=== PATIENT | male | born 1945 | race African-American/Black ===

== ENCOUNTER 2018-02-03 05:36 | Inpatient (IN) | payer MEDICARE, MEDICAID ==
[2018-02-03] MEDS ORDERED: Midazolam HCl 5 mg/5 ml Vial ONE (06:26)
[2018-02-03] MEDS ORDERED: Fentanyl 250 MCG/5 ML VIAL ONE ×2 (06:26→07:07)
[2018-02-03] MEDS ORDERED: Albumin 5% 500 ML ONE (06:28)
[2018-02-03] MEDS ORDERED: CEFAZOLIN/Water 2 GM/20 ML SYRINGE ONE (06:43)
[2018-02-03] MEDS ORDERED: Heparin 10,000 UNITS/1 ML VIAL 30,000 UNITS in Sodium Chloride 0.9% 1,000 ML FS SCH (06:45)
[2018-02-03 07:07] LABS: #Basophils 0.1 thou/uL (0.0-0.2); #Eosinphils 0.2 thou/uL (0.0-0.7); #Lymphocytes 2.3 thou/uL (1.20-3.40); #Monocytes 0.6 thou/uL (0.11-0.59); #Neutrophils 4.4 thou/uL (1.40-6.50); %Basophils 1.6 % (0.0-1.0); %Eosinophils 2.1 % (0.0-10.0); %Lymphocytes 29.7 % (21.0-51.0); %Neutrophils 58.6 % (42.0-75.0); Hemoglobin 14.6 g/dL (14.0-18.0); Mean Corpuscular HGB CONC 32.2 g/dL (32.0-36.0); Mean Corpuscular Hemoglobin 28.8 pg (27.0-31.0); Mean Corpuscular Volume 89.4 fl (80.0-94.0); Mean Platelet Volume 8.3 fL (7.4-10.4); Platelet Count 266 thou/uL (130-400); RBC Distribution Width 14.5 % (11.5-14.5); Red Blood Cell (RBC) Count 5.06 mill/uL (4.70-6.10); White Blood Cell (WBC) Count 7.6 thou/uL (4.8-10.8)
[2018-02-03] MEDS ORDERED: Midazolam HCl 2 mg/2 ml Vial ONE (07:07)
[2018-02-03] MEDS ORDERED: Phenylephrine HCL 10 MG/ML VIAL ONE (07:08)
[2018-02-03] MEDS ORDERED: Vecuronium 10 MG VIAL ONE ×2 (07:17→14:25)
[2018-02-03 07:26] LABS: PTT 25.7 SEC (22.9-36.1); Prothrombin Time 13.5 SEC (12.0-14.7)
[2018-02-03] MEDS ORDERED: Dexmedetomidine 200 MCG/2 ML VIAL ONE (07:28)
[2018-02-03 07:41] LABS: Chloride 105 mmol/L (98-107); Potassium 3.5 mmol/L (3.5-5.1); Sodium 138 mmol/L (136-145)
[2018-02-03 07:42] LABS: Calcium 9.6 mg/dL (7.8-10.44)
[2018-02-03 07:43] LABS: Glucose 81 mg/dL (83-110)
[2018-02-03 07:44] LABS: Anion Gap 20 mmol/L (10-20); Carbon Dioxide 17 mmol/L (23-31)
[2018-02-03 07:46] LABS: Calc. Creatinine Clearance 89 mL/min (70-130); Estimated GFR-MDRD 75
[2018-02-03 07:47] LABS: BUN (Urea Nitrogen) 16 mg/dL (8.4-25.7)
--- NOTE | 2018-02-03 07:57 | RAD ---
CHEST 2 VIEWS: HISTORY: Chest pain. COMPARISON: None. FINDINGS: Normal cardiac silhouette. Pulmonary vessels and hilum are normal. No mass. No consolidation. No pneumothorax or osseous abnormalities. IMPRESSION: No acute cardiopulmonary process. POS: [facility]
[2018-02-03] MEDS ORDERED: Hetastarch 6% 500 ML 500 ML IVPB PRN (11:30)
[2018-02-03] MEDS ORDERED: Ondansetron HCl/PF 4 MG/2 ML Vial IVP PRN (11:30)
[2018-02-03] MEDS ORDERED: Nitroglycerin 50 MG/250 ML BOT 250 ML IVPB PRN (11:30)
[2018-02-03] MEDS ORDERED: Guaifenesin DM 100-10/5 ML UDCUP PO PRN (11:30)
[2018-02-03] MEDS ORDERED: Post-Op Insulin Drip Protocol IVPB ONE (11:30)
[2018-02-03] MEDS ORDERED: HYDROcodone/Acetaminophen 5/325 mg Tablet PO PRN (11:30)
[2018-02-03] MEDS ORDERED: Magnesium 2 GM/NS 0.9% 100 ML 2 GM in Premix Bag 1 BAG IVPB SCH (11:30)
[2018-02-03] MEDS ORDERED: Fentanyl 100 MCG/2 ML VIAL SLOW IVP PRN ×2 (11:30)
[2018-02-03] MEDS ORDERED: Acetaminophen 325 MG TAB PO PRN (11:30)
[2018-02-03] MEDS ORDERED: Bisacodyl 5 MG TAB PO PRN (11:30)
[2018-02-03] MEDS ORDERED: hydrALAZINE 20 MG/ML VIAL SLOW IVP PRN (11:30)
[2018-02-03] MEDS ORDERED: Promethazine HCl 25 MG/ML VIAL IM PRN (11:30)
[2018-02-03] MEDS ORDERED: Bisacodyl 10 MG SUPP PR PRN (11:30)
[2018-02-03] MEDS ORDERED: Phenylephrine 10 MG/NS 250 ML 250 ML IVPB PRN (11:30)
[2018-02-03] MEDS ORDERED: Mag-Al 1200 mg/1200 mg/30 ML UDCUP PO PRN (11:30)
[2018-02-03] MEDS ORDERED: DOPamine 400 MG/D5W 250 ML 250 ML IVPB PRN (11:30)
[2018-02-03] MEDS ORDERED: Dextrose 50% Abboject 50 ML SYRINGE SLOW IVP PRN (11:50)
[2018-02-03] MEDS ORDERED: Dextrose 5% in Water 1,000 ML IV PRN (11:50)
[2018-02-03 11:59] LABS: Actual Bicarbonate (HCO3a) 23.9 mEq/L (22-26); Base Excess (BEa) -1.9 mEq/L (0 (+/-) 2.5); CO2 Tension 45.4 mmHg (35.0-45.0); Calcium, Ionized 1.2 mmol/L (1.12-1.30); O2 Tension (PaO2) 67.5 mmHg (80.0-100.0); Puncture Site LINE; pH, Arterial 7.33 (7.35-7.45)
[2018-02-03 12:03] VITALS: BMI 39.2
[2018-02-03] MEDS: Ketorolac Tromethamine 30 MG/ML VIAL IVP SCH ×3 (12:06→23:39)
[2018-02-03] MEDS: D5 1/2 NS w/20 mEq KCL 1,000 ML IV SCH (12:06)
[2018-02-03 12:08] LABS: #Basophils 0.1 thou/uL (0.0-0.2); #Eosinphils 0.1 thou/uL (0.0-0.7); #Lymphocytes 2.3 thou/uL (1.20-3.40); #Neutrophils 13.3 thou/uL (1.40-6.50); %Basophils 0.4 % (0.0-1.0); %Eosinophils 0.7 % (0.0-10.0); %Lymphocytes 13.7 % (21.0-51.0); %Monocytes 5.9 % (0.0-10.0); %Neutrophils 79.4 % (42.0-75.0); Hemoglobin 10.4 g/dL (14.0-18.0); Mean Corpuscular HGB CONC 32.1 g/dL (32.0-36.0); Mean Corpuscular Hemoglobin 28.9 pg (27.0-31.0); Mean Corpuscular Volume 90.1 fl (80.0-94.0); Platelet Count 168 thou/uL (130-400); RBC Distribution Width 14.2 % (11.5-14.5); Red Blood Cell (RBC) Count 3.61 mill/uL (4.70-6.10); White Blood Cell (WBC) Count 16.7 thou/uL (4.8-10.8)
[2018-02-03 12:12] LABS: INR-International Normal Ratio 1.3; PTT 32.7 SEC (22.9-36.1); Prothrombin Time 16.5 SEC (12.0-14.7)
[2018-02-03 12:23] LABS: Anion Gap 10 mmol/L (10-20); BUN (Urea Nitrogen) 13 mg/dL (8.4-25.7); Calc. Creatinine Clearance 116 mL/min (70-130); Calcium 8.4 mg/dL (7.8-10.44); Carbon Dioxide 24 mmol/L (23-31); Chloride 107 mmol/L (98-107); Estimated GFR-MDRD Greater than 90; Glucose 161 mg/dL (83-110); Potassium 3.4 mmol/L (3.5-5.1); Sodium 138 mmol/L (136-145)
[2018-02-03] MEDS: Potassium Chloride 20 MEQ/100 ML PREMIX BAG IVPB PRN ×2 (12:48→18:24)
--- NOTE | 2018-02-03 14:09 | RAD ---
PORTABLE CHEST 1 VIEW: DATE: 02/03/18. TIME: 11:58 a.m. HISTORY: Postop open heart surgery. FINDINGS: Comparison is made to the exam FINDINGS: Correlation is made with the exam of 02/03/18. Interval changes of median sternotomy are seen. There is an endotracheal tube with tip about a centi meter above the level of the jaylyn. A right subclavian central line is noted with tip in the projec tion of the cavoatrial junction. Heart size is normal. No lobar consolidation, pneumothoraces, or l arge effusions are seen. There is no evidence of antwon pulmonary edema. There is subsegmental atele ctatic change of the left lung base. POS: [facility]
--- NOTE | 2018-02-03 14:18 | OP ---
DATE OF PROCEDURE: 02/03/2018 PREOPERATIVE DIAGNOSES: Coronary artery disease/hyperlipidemia/hyperlipidemia/diabetes mellitus/obes ity. POSTOPERATIVE DIAGNOSES: Coronary artery disease/hyperlipidemia/hyperlipidemia/diabetes mellitus/obe sity. PROCEDURES PERFORMED: Coronary artery bypass grafting x3: 1. Left internal mammary artery 2.0 mm distal LAD - good conduit and target. 2. Reverse saphenous vein to 2.0 mm OM - good conduit and target. 3. Reversed saphenous vein to 2.0 mm PDA - conduit and target. SURGEONS: Mikey Fatima M.D., and James Palacios M.D. ANESTHESIA: General endotracheal - Rosalio Tarango D.O. and Cody Lopez CRNA. PUMP TIME: 59 minutes. CROSS-CLAMP TIME: 31 minutes. LOW CORE TEMP: 32-degree Celsius. DIRECTOR OF TEENAGE ACTIVITIES: Dieudonne Watkins. DRAINS: 24-[place] chest tubes x2. DRIPS: None. TRANSFUSIONS: None. DESCRIPTION OF PROCEDURE: After consent was obtained, the patient was brought to the operating room and placed in the supine position on the operating room table. Appropriate anesthetic monitor was pl aced and general endotracheal anesthesia induced. Chest, abdomen and legs were prepped and draped in usual sterile fashion. Greater saphenous vein was harvested from the left lower extremity utilizing an endoscopic technique. Wound was irrigated and closed in layers. Median sternotomy was performed . Left internal mammary artery was harvested as a pedicle graft. The patient was systemically hepar inized. Distal pedicle was divided and infused with papaverine. Thymic fat and pericardium were div ided with electrocautery. Pericardial stay sutures were placed. Aortic and atrial cannulation was p erformed. After adequate heparinization, retrograde prime was performed. The patient was placed on cardiopulmonary bypass. Distal targets were marked. Aortic cross-clamp was applied and antegrade sa nguinous cardioplegic arrest obtained. One liter of antegrade cold cardioplegia was given. Topical cold solution was used. Reversed saphenous vein was anastomosed to the PDA in end-to-side fashion wi th running 7-0 Prolene suture. Anastomosis was tested and was hemostatic. Reverse saphenous vein wa s anastomosed to the OM in end-to-side fashion with running 7-0 Prolene suture. Anastomosis was teste d and was hemostatic. Mammary artery was brought through a window in the pericardium and anastomosed to the LAD in end-to-side fashion with running 7-0 Prolene suture. On release of the Mammary clamps , good hooding in the anastomosis and good distal flow. Pedicle was secured with interrupted 6-0 Pro clarisa suture. Cross-clamp was removed and partial occluding clamp placed. Saphenous veins were anast omosed to individual punch sites on the aorta with running 6-0 Prolene suture. Partial occluding cla mp was removed and grafts deaired. Anastomoses were inspected for hemostasis, which was good. A sin gle stitch was placed in the toe of the mammary for hemostasis. After resumption of sinus rhythm, go od hemodynamics, and temperature greater than 36.5 bypass was discontinued. Transfusions were given. 24-[place] chest tubes were placed in the mediastinum. Decannulation was performed and pursestring sutures secured. Protamine was administered. After adequate hemostasis was obtained, vancomycin pas te was placed on the sternal edges. Sternum was closed with #7 wire. Sternum was treated with plate let-rich plasma and wires twisted. Wounds were irrigated, treated with platelet-poor plasma, and augusta sed in multiple layers. The patient was transferred to the intensive care unit in stable, but critic al condition. Needle, sponge, and needle counts were all reported as correct at the end of the proce dure.
[2018-02-03] MEDS ORDERED: Propofol 200 MG/20 ML VIAL ONE (14:25)
[2018-02-03] MEDS ORDERED: Thrombin 5000 UNITS/5 ML VIAL ONE (14:25)
[2018-02-03] MEDS ORDERED: Sodium Bicarb 50 MEQ/50 ML VIAL ONE (14:25)
[2018-02-03] MEDS ORDERED: Papaverine 60 MG/2 ML VIAL ONE (14:25)
[2018-02-03] MEDS ORDERED: Magnesium 5 GM/10 ML VIAL ONE (14:25)
[2018-02-03] MEDS ORDERED: Aminocaproic Acid 5 GM/20 ML VIAL ONE (14:25)
[2018-02-03] MEDS ORDERED: PHENYLEPHRINE-NS 100 MCG/ML 10 ML SYRINGE ONE (14:25)
[2018-02-03] MEDS ORDERED: Norepinephrine 4 MG/4 ML VIAL ONE (14:25)
[2018-02-03] MEDS ORDERED: Lidocaine 2% PF 100 mg/5 ml Syringe ONE (14:25)
[2018-02-03] MEDS ORDERED: Potassium Chloride 60 MEQ/30 ML VIAL ONE (14:25)
[2018-02-03] MEDS ORDERED: Cardioplegic Soln 1,000 ML BAG ONE (14:25)
[2018-02-03] MEDS ORDERED: Heparin 5,000 UNITS/ML VIAL ONE (14:25)
[2018-02-03] MEDS ORDERED: Nitroglycerin 50 MG/250 ML BOT ONE (14:25)
[2018-02-03] MEDS ORDERED: Calcium Chloride 1 GM/10 ML Abboject SYRINGE ONE (14:25)
[2018-02-03] MEDS ORDERED: Heparin 30,000 units/30 ml VIAL ONE (14:25)
[2018-02-03] MEDS ORDERED: Protamine Sulfate 250 MG/25 ML VIAL ONE (14:25)
[2018-02-03] MEDS: CEFAZOLIN/Water 2 GM/20 ML SYRINGE SLOW IVP SCH ×2 (15:04→23:40)
[2018-02-03 16:06] LABS: Actual Bicarbonate (HCO3a) 20.8 mEq/L (22-26); Base Excess (BEa) -7.2 mEq/L (0 (+/-) 2.5); CO2 Tension 52.7 mmHg (35.0-45.0); O2 Tension (PaO2) 58.1 mmHg (80.0-100.0); pH, Arterial 7.21 (7.35-7.45)
[2018-02-03 16:07] LABS: ALV-art Gradient 232.525 (0-20); Analyzer IN Cardio ER; Calcium, Ionized 1.1 mmol/L (1.12-1.30); Hematocrit-ABG 41.2 % (42.0-52.0); Hemoglobin (Hb) 12.4 g/dL (14.0-18.0); Puncture Site LINE
[2018-02-03 16:40] LABS: ALV-art Gradient 293.075 (0-20); Actual Bicarbonate (HCO3a) 19.4 mEq/L (22-26); Analyzer IN Cardio ER; Base Excess (BEa) -7.8 mEq/L (0 (+/-) 2.5); CO2 Tension 46.1 mmHg (35.0-45.0); Calcium, Ionized 1.1 mmol/L (1.12-1.30); Hematocrit-ABG 39.5 % (42.0-52.0); O2 Tension (PaO2) 77.1 mmHg (80.0-100.0); Puncture Site LINE; pH, Arterial 7.24 (7.35-7.45)
[2018-02-03] MEDS ORDERED: Sedation Protocol FS SCH (16:45)
[2018-02-03] MEDS ORDERED: Sodium Bicarb 50 MEQ/50 ML Abboject 8.4% SYRINGE IVP SCH (16:45)
[2018-02-03] MEDS ORDERED: DISCONTINUE PREVIOUS NARCOTIC PAIN MEDICATIONS AND BENZODIAZEPINES FS SCH (16:52)
[2018-02-03] MEDS ORDERED: Propofol 1,000 MG/100 ML VIAL IV PRN (16:52)
[2018-02-03] MEDS ORDERED: Fentanyl 20 MCG/ML 250 ML IVPB SCH (16:52)
[2018-02-03] MEDS ORDERED: Lorazepam 2 MG/ML VIAL SLOW IVP PRN (16:52)
[2018-02-03] MEDS ORDERED: fentaNYL Citrate/PF 2,000 MCG in Sodium Chloride 0.9% 60 ML IV SCH (17:00)
[2018-02-03 17:49] LABS: Hemoglobin 12.6 g/dL (14.0-18.0)
[2018-02-03 18:01] LABS: Potassium 3.2 mmol/L (3.5-5.1)
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
--- NOTE | 2018-02-03 18:40 | CON ---
DATE OF ADMISSION: 02/03/2018 DATE OF CONSULTATION: 02/03/2018 HISTORY OF PRESENT ILLNESS: Mr. Rey is a patient well known to me 72-year-old gentleman who came in for an elective bypass surgery. He has a history of hypertension, coronary artery disease, dysli pidemia, and diabetes. He underwent three-vessel bypass surgery today with a RANDOLPH to left anterior d escending artery, saphenous vein graft to the obtuse marginal branch of left circumflex and also the posterior descending of the right coronary artery. He apparently did very well. He is in the postop erative recovery area. At this time, blood pressure has been slightly decreased at times have been o n medications. His blood pressure now is 92/38 by arterial catheter is 89/45. PHYSICAL EXAMINATION: VITAL SIGNS: His heart rate is 79 and shows a sinus rhythm. He is afebrile, respiratory rate 24. H e remains on the ventilator. CHEST: Clear to auscultation anteriorly. CARDIOVASCULAR: Reveals a regular rate and rhythm. EXTREMITIES: Lower extremities are wrapped. He does not have any significant edema. His medications at this time include Tylenol, albumin, aspirin, cefazolin. He is on dopamine, Pepcid , fentanyl for sedation. He is on multiple p.r.n. medications, insulin on a sliding scale. At this time, we will continue to follow him very carefully. His pH has been somewhat on the low side. He h as been back on his IV medications as well as ventilator. We will continue to follow. At this time, I would agree with the medication as well as a management. We will continue following him on a rout ine basis until he was discharged from the hospital. Otherwise, he did quite well and we will see wh ether or not if he has developed any complications during the hospital stay.
[2018-02-03] MEDS: Famotidine/PF 20 mg/2ml Vial SLOW IVP SCH (21:04)
[2018-02-04 04:48] LABS: Band 16 % (5-11); Hemoglobin 11.7 g/dL (14.0-18.0); Lymphocytes 3 % (21-51); MDiff Complete? YES; Mean Corpuscular HGB CONC 31.6 g/dL (32.0-36.0); Mean Corpuscular Volume 88.6 fl (80.0-94.0); Mean Platelet Volume 8.1 fL (7.4-10.4); Monocytes 6 % (0-10); Neutrophil 75 % (42-75); PLT Morphology Comment Appears Adequate; Platelet Count 189 thou/uL (130-400); RBC Distribution Width 14.5 % (11.5-14.5); Red Blood Cell (RBC) Count 4.17 mill/uL (4.70-6.10); White Blood Cell (WBC) Count 18.4 thou/uL (4.8-10.8)
[2018-02-04 04:50] LABS: Anion Gap 11 mmol/L (10-20); BUN (Urea Nitrogen) 21 mg/dL (8.4-25.7); Calc. Creatinine Clearance 71 mL/min (70-130); Calcium 8.6 mg/dL (7.8-10.44); Carbon Dioxide 27 mmol/L (23-31); Chloride 108 mmol/L (98-107); Estimated GFR-MDRD 56; Glucose 118 mg/dL (83-110); Potassium 3.7 mmol/L (3.5-5.1); Sodium 142 mmol/L (136-145)
[2018-02-04] MEDS: Ketorolac Tromethamine 30 MG/ML VIAL IVP SCH ×4 (05:24→23:51)
[2018-02-04] MEDS: Potassium Chloride 20 MEQ/100 ML PREMIX BAG IVPB PRN (06:25)
[2018-02-04] MEDS: CEFAZOLIN/Water 2 GM/20 ML SYRINGE SLOW IVP SCH (06:32)
[2018-02-04 07:03] LABS: Actual Bicarbonate (HCO3a) 23.5 mEq/L (22-26); Base Excess (BEa) -2.1 mEq/L (0 (+/-) 2.5); CO2 Tension 43.3 mmHg (35.0-45.0); Calcium, Ionized 1.1 mmol/L (1.12-1.30); Hematocrit-ABG 37.1 % (42.0-52.0); Hemoglobin (Hb) 11.3 g/dL (14.0-18.0); Puncture Site RRA; pH, Arterial 7.35 (7.35-7.45)
[2018-02-04 07:04] LABS: ALV-art Gradient 156.075 (0-20)
--- NOTE | 2018-02-04 07:35 | RAD ---
CHEST 1 VIEW: HISTORY: Dyspnea. Followup. COMPARISON: 01/06/18. FINDINGS: Cardiac silhouette is magnified and enlarged. Pulmonary vasculature remains engorged with patchy salbador ateral perihilar and bibasilar infiltrates and left basilar atelectasis. Mediastinum is midline with postoperative changes. Endotracheal catheter tip is now at the level of the clavicular heads. Othe r lines and tubes are unchanged in position. satellite project site monitor leads overlie the chest. IMPRESSION: Improved position of endotracheal catheter. Otherwise, stable postoperative appearance of the chest. POS: [facility]
[2018-02-04] MEDS ORDERED: Insulin Detemir 100 UNITS/ML 16 UNITS in Pre-Filled Syringe 1 EACH SC SCH (08:15)
[2018-02-04] MEDS: Aspirin 325 MG TAB PO SCH (09:42)
[2018-02-04] MEDS: Famotidine/PF 20 mg/2ml Vial SLOW IVP SCH (09:42)
[2018-02-04] MEDS: Magnesium 2 GM/NS 0.9% 100 ML 2 GM in Premix Bag 1 BAG IVPB SCH (09:43)
--- NOTE | 2018-02-04 10:30 | PRG ---
DATE OF SERVICE: 02/04/2018 Mr. Rey did well. He was extubated this morning after he awakened overnight. PHYSICAL EXAMINATION: VITAL SIGNS: Blood pressure 132/61, heart rate 87, respiratory rate 18, temperature is 99.5. LUNGS: His lungs are clear. HEART: Regular rhythm. S1 and S2 are normal. ABDOMEN: Abdomen soft and nontender. EXTREMITIES: Without asymmetry. LABORATORY DATA: White count 18.4, hemoglobin 11.7, platelets 189. Sodium 142, potassium 3.7, chlor arun 108, bicarbonate 27, BUN 21, creatinine 1.49. PH this morning 7.35, CO2 43, pO2 75. Chest radiograph shows haziness in both lung bases. IMPRESSION: 1. Status post coronary bypass grafting. 2. Overnight intubation, most likely secondary to preexisting untreated sleep apnea. His was in the room when I rounded today and I discussed his care with her. She says that he snores. I susp ect he was sleep deprived from untreated sleep apnea which would account for why he was hypoventilati ng so long after surgery. He is clinically stable. Once he recovers from surgery, we need to see him and set him up for a sleep study. Critical care time was 30 minutes.
[2018-02-04] MEDS: D5 1/2 NS w/20 mEq KCL 1,000 ML IV SCH (11:00)
[2018-02-04] MEDS: HYDROcodone/Acetaminophen 5/325 mg Tablet PO PRN ×3 (11:02→21:30)
[2018-02-04] MEDS ORDERED: Metoprolol Tartrate 25 MG TAB PO SCH ×2 (13:15→13:30)
--- NOTE | 2018-02-04 13:15 | PDOC.CTH ---
<Fernanda Blas - Last Filed: 02/04/18 13:13> Cardiology Progress Note - Subjective The pt seen and examined. No overnight events. No cardiac complaints. He was extubated this AM and has not gotten out of his bed yet this moment. Family at bedside. - Objective Vital Signs Temp Pulse Resp BP Pulse Ox 02/04/18 08:00 98.4 F 90 18 99 02/04/18 07:20 115 H 22 H 98 02/04/18 06:25 76 02/04/18 06:00 22 H 02/04/18 04:00 20 02/04/18 02:19 86 97/54 L 02/04/18 02:00 15 Admit Weight 250 lb 10.649 oz Weight 251 lb 12.286 oz 02/03/18 02/04/18 02/05/18 06:59 06:59 06:59 Intake Total 1398.7 Output Total 1395 275 Balance 3.7 -275 - Physical Examination General/Neuro: alert & oriented x3 Neck: no JVD present Lungs: CTA (diminished at bases; on 2LNC) Heart: RRR Abdomen: soft Extremities: other: (FRANK wrap to LLE and SALEEM to RLE) - Telemetry Telemetry Rhythm: SR 90s - Labs Result Diagrams: 02/04/18 04:30 02/04/18 04:30 - Assessment/Plan 1. 3V CAD with s/p CABG x 3 with RANDOLPH-LAD, saph-OM, and saph-RCA on 02/03/18 - stable; on ASA; Start Metoprolol 12.5mg BID and Pravastatin 40mg daily; cont. monitor on tele 2. HTN - stable 3. Hyperlipidemia - start statin from tonight 4. DM type 2 - stable 5. Obese - Weight management education given to the pt and family MAR reviewed Review of Systems - Review of Systems Constitutional: reports: no symptoms reported EENTM: reports: no symptoms reported Respiratory: reports: no symptoms reported Cardiac (ROS): reports: no symptoms reported ABD/GI: reports: no symptoms reported : reports: no symptoms reported <Sherlyn Kincaid - Last Filed: 02/04/18 21:05> Cardiology Progress Note - Objective Vital Signs Temp Pulse Resp Pulse Ox 02/04/18 19:00 98.5 F 02/04/18 18:45 93 10 L 98 Admit Weight 250 lb 10.649 oz Weight 251 lb 12.286 oz 02/03/18 02/04/18 02/05/18 06:59 06:59 06:59 Intake Total 1398.7 1132.9 Output Total 1395 910 Balance 3.7 222.9 - Labs Result Diagrams: 02/04/18 04:30 02/04/18 04:30 - Assessment/Plan Pt. seen and eval. by me. He is feeling better and appears to be overall more stable than yesterday. Chest is clear anteriorly. RRR. Minimal edema. I agree with the A/P by the REFRIGERATION PERSON.
[2018-02-04] MEDS: Silver Sulfadiazine 1% Cream 50 GM TUBE TP SCH (17:20)
--- NOTE | 2018-02-04 17:39 | EKG ---
Test Reason : POST CABG Blood Pressure : / mmHG Vent. Rate : 074 BPM Atrial Rate : 074 BPM P-R Int : 166 ms QRS Dur : 092 ms QT Int : 392 ms P-R-T Axes : 054 -30 032 degrees QTc Int : 435 ms Sinus rhythm with occasional Premature ventricular complexes Left axis deviation Nonspecific T wave abnormality Abnormal ECG When compared with ECG of 24-JUN-2016 13:54, Premature ventricular complexes are now Present Nonspecific T wave abnormality no longer evident in Inferior leads Confirmed by DR. Braydon ALLEN ([id number]) on 02/04/2018 5:39:11 PM Referred By: Derek MCDONALD Confirmed By:DR. Braydon ALLEN
--- NOTE | 2018-02-04 17:42 | EKG ---
Test Reason : POST CABG Blood Pressure : / mmHG Vent. Rate : 069 BPM Atrial Rate : 069 BPM P-R Int : 172 ms QRS Dur : 094 ms QT Int : 452 ms P-R-T Axes : 047 -43 069 degrees QTc Int : 484 ms Normal sinus rhythm Left axis deviation Prolonged QT Abnormal ECG When compared with ECG of 03-FEB-2018 06:51, (Unconfirmed) Premature ventricular complexes are no longer Present Confirmed by DR. Braydon ALLEN ([id number]) on 02/04/2018 5:42:25 PM Referred By: Derek MCDONALD Confirmed By:DR. Bradyon ALLEN
[2018-02-04] MEDS: Insulin Regular 300 UNITS/3 ML VIAL SC PRN ×2 (17:52→21:36)
[2018-02-04] MEDS: Famotidine 20 MG TAB PO SCH (21:29)
[2018-02-04] MEDS: Atorvastatin Calcium 10 MG TAB PO SCH (21:29)
[2018-02-04] MEDS: Metoprolol Tartrate 25 MG TAB PO SCH (21:29)
[2018-02-05] MEDS: HYDROcodone/Acetaminophen 5/325 mg Tablet PO PRN ×3 (01:15→09:50)
[2018-02-05] MEDS: Ketorolac Tromethamine 30 MG/ML VIAL IVP SCH ×3 (05:07→17:43)
[2018-02-05 05:36] LABS: #Eosinphils 0.1 thou/uL (0.0-0.7); #Monocytes 1.8 thou/uL (0.11-0.59); #Neutrophils 10.3 thou/uL (1.40-6.50); %Basophils 0.3 % (0.0-1.0); %Eosinophils 0.4 % (0.0-10.0); %Lymphocytes 14.2 % (21.0-51.0); %Monocytes 12.5 % (0.0-10.0); %Neutrophils 72.7 % (42.0-75.0); Hemoglobin 10.5 g/dL (14.0-18.0); Mean Corpuscular HGB CONC 31.4 g/dL (32.0-36.0); Mean Corpuscular Hemoglobin 28.1 pg (27.0-31.0); Mean Corpuscular Volume 89.4 fl (80.0-94.0); Platelet Count 196 thou/uL (130-400); RBC Distribution Width 14.7 % (11.5-14.5); Red Blood Cell (RBC) Count 3.74 mill/uL (4.70-6.10); White Blood Cell (WBC) Count 14.1 thou/uL (4.8-10.8)
[2018-02-05 05:39] LABS: Anion Gap 11 mmol/L (10-20); BUN (Urea Nitrogen) 21 mg/dL (8.4-25.7); Calc. Creatinine Clearance 78 mL/min (70-130); Calcium 8.4 mg/dL (7.8-10.44); Carbon Dioxide 27 mmol/L (23-31); Chloride 107 mmol/L (98-107); Estimated GFR-MDRD 62; Glucose 187 mg/dL (83-110); Potassium 3.8 mmol/L (3.5-5.1); Sodium 141 mmol/L (136-145)
[2018-02-05] MEDS: Insulin Regular 300 UNITS/3 ML VIAL SC PRN ×3 (06:23→12:34)
[2018-02-05] MEDS: Potassium Chloride 20 MEQ/100 ML PREMIX BAG IVPB PRN (06:25)
--- NOTE | 2018-02-05 09:37 | RAD ---
CHEST ONE VIEW: HISTORY: Status post open heart surgery. COMPARISON: 02/04/2018 FINDINGS: Interval removal of endotracheal and nasogastric tubes. Drainage catheters, central venous catheter, and sternotomy wires are re-demonstrated. Stable configuration of the cardiac silhouette. Stable a eration of the lung parenchyma. No pneumothorax. IMPRESSION: Findings compatible with recent open heart surgery. POS: [facility]
[2018-02-05] MEDS: Magnesium 2 GM/NS 0.9% 100 ML 2 GM in Premix Bag 1 BAG IVPB SCH (09:43)
[2018-02-05] MEDS: Aspirin 325 MG TAB PO SCH (09:44)
[2018-02-05] MEDS: Potassium Chloride 20 MEQ TAB PO SCH (09:44)
[2018-02-05] MEDS: Tamsulosin HCl 0.4 MG CAP PO SCH (09:44)
[2018-02-05] MEDS: Furosemide 40 MG TAB PO SCH ×2 (09:44→17:43)
[2018-02-05] MEDS: Metoprolol Tartrate 25 MG TAB PO SCH ×2 (09:44→21:31)
[2018-02-05] MEDS: Famotidine 20 MG TAB PO SCH ×2 (09:44→21:29)
[2018-02-05] MEDS: Silver Sulfadiazine 1% Cream 50 GM TUBE TP SCH (09:53)
[2018-02-05] MEDS ORDERED: Nitroglycerin 0.4 MG TAB (25 Tab Bottle) SL PRN (12:05)
[2018-02-05] MEDS ORDERED: Guaifenesin DM 100-10/5 ML UDCUP PO PRN (12:05)
[2018-02-05] MEDS ORDERED: Bisacodyl 10 MG SUPP PR PRN (12:05)
[2018-02-05] MEDS ORDERED: Artificial Tears 18 DROP/0.9 ML EA EYE PRN (12:05)
[2018-02-05] MEDS ORDERED: Bisacodyl 5 MG TAB PO PRN (12:05)
[2018-02-05] MEDS ORDERED: Zolpidem Tartrate 5 MG TAB PO PRN (12:05)
[2018-02-05] MEDS ORDERED: diphenhydrAMINE 25 MG CAP PO PRN (12:05)
[2018-02-05] MEDS ORDERED: Mag-Al 1200 mg/1200 mg/30 ML UDCUP PO PRN (12:05)
[2018-02-05] MEDS ORDERED: Mineral Oil ENEMA PR PRN (12:05)
[2018-02-05] MEDS ORDERED: Dextrose 5% in Water 1,000 ML IV PRN (12:12)
[2018-02-05] MEDS ORDERED: Dextrose 50% Abboject 50 ML SYRINGE SLOW IVP PRN (12:12)
--- NOTE | 2018-02-05 14:17 | PDOC.CTH ---
<Fernanda Blas - Last Filed: 02/05/18 14:18> Cardiology Progress Note - Subjective The Pt seen and examined. No overnight events. No cardiac complaints. He is exercising with PT at this moment. - Objective Vital Signs Temp Pulse Pulse Pulse Resp BP BP 02/05/18 12:00 98.4 F 02/05/18 08:37 105 H 109 H 147/66 H 163/75 H 02/05/18 08:00 98.3 F 85 20 02/05/18 07:18 02/05/18 07:15 99 20 02/05/18 04:00 98.8 F Pulse Ox Pulse Ox Pulse Ox 02/05/18 12:00 02/05/18 08:37 96 93 L 02/05/18 08:00 02/05/18 07:18 93 L 02/05/18 07:15 93 L 02/05/18 04:00 Admit Weight 250 lb 10.649 oz Weight 249 lb 12.54 oz 02/04/18 02/05/18 02/06/18 06:59 06:59 06:59 Intake Total 1398.7 1492.9 400 Output Total 1395 1555 800 Balance 3.7 -62.1 -400 - Physical Examination General/Neuro: alert & oriented x3 Neck: no JVD present Lungs: other: (diminished at bases) Heart: RRR Abdomen: soft Extremities: other: (No edema) - Telemetry Telemetry Rhythm: SR - Labs Result Diagrams: 02/05/18 05:21 02/05/18 05:21 - Assessment/Plan 1. 3V CAD with s/p CABG x 3 with RANDOLPH-LAD, saph-OM, and saph-RCA on 02/03/18 - stable; on ASA; on Metoprolol 12.5mg BID and Pravastatin 40mg daily; Lisinopril 10mg daily started from today; cont. monitor on tele 2. HTN - Lisinopril 10mg daily from today; 3. Hyperlipidemia - on statin 4. DM type 2 - stable 5. Obese - Weight management education given to the pt and family MAR reviewed Review of Systems - Review of Systems Constitutional: reports: no symptoms reported EENTM: reports: no symptoms reported Respiratory: reports: no symptoms reported Cardiac (ROS): reports: no symptoms reported ABD/GI: reports: no symptoms reported : reports: no symptoms reported Musculoskeletal: reports: no symptoms reported Skin: reports: no symptoms reported <Sherlyn Kincaid - Last Filed: 02/05/18 22:13> Cardiology Progress Note - Objective Vital Signs Temp Pulse Pulse Pulse Resp BP BP 02/05/18 19:40 02/05/18 19:35 100 18 02/05/18 17:40 98.8 F 97 20 02/05/18 13:21 99 91 138/66 137/69 02/05/18 12:00 98.4 F BP Pulse Ox Pulse Ox Pulse Ox 02/05/18 19:40 93 L 02/05/18 19:35 93 L 02/05/18 17:40 166/74 H 98 02/05/18 13:21 100 98 02/05/18 12:00 Admit Weight 250 lb 10.649 oz Weight 249 lb 12.54 oz 02/04/18 02/05/18 02/06/18 06:59 06:59 06:59 Intake Total 1398.7 1492.9 400 Output Total 1395 1555 800 Balance 3.7 -62.1 -400 - Labs Result Diagrams: 02/05/18 05:21 02/05/18 05:21 - Assessment/Plan Pt. seen and eval. by me.I agree with the A/P by the POKER ROOM MANAGER. He denies any new complaints. He is still somewhat SOB. Exam: few basilar wheezes noted. RRR
--- NOTE | 2018-02-05 16:44 | PRG ---
DATE OF SERVICE: 02/05/2018 SUBJECTIVE: Mr. Rey says he is still feeling a little rough, but mainly he just says he aches al l over. He did not have any specific complaints. He denied shortness of breath. OBJECTIVE: VITAL SIGNS: Blood pressure 130/66, heart rate 79, respiratory rates 18-20 and his oximetry is 91% o n 2 liters a minute. LUNGS: Clear. HEART: Regular rhythm. S1 and S2 are normal. ABDOMEN: Soft. EXTREMITIES: With asymmetry. IMAGING DATA: Chest radiograph is hazy at the left base, as expected after surgery. LABORATORY DATA: White count is 14.1, hemoglobin 10.5 and platelets 196,000. Sodium 141, potassium 3.8, chloride 107, bicarb 27, BUN 21, creatinine 1.36 and glucose 187. IMPRESSION AND PLAN: 1. Status post coronary bypass grafting, clinically doing well. 2. Probable untreated preexisting sleep apnea. We will need to see him as an outpatient when he rec overs from this and scheduling for a sleep study.
[2018-02-05] MEDS: Atorvastatin Calcium 10 MG TAB PO SCH (21:29)
[2018-02-05] MEDS: HYDROcodone/Acetaminophen 10/325 mg Tablet PO PRN (21:31)
[2018-02-06] MEDS: Ketorolac Tromethamine 30 MG/ML VIAL IVP SCH ×3 (00:01→11:55)
[2018-02-06] MEDS: Furosemide 40 MG TAB PO SCH ×2 (09:49→14:13)
[2018-02-06] MEDS: Famotidine 20 MG TAB PO SCH ×2 (09:49→20:35)
[2018-02-06] MEDS: Aspirin 325 mg Enteric Coated Tablet PO SCH (09:49)
[2018-02-06] MEDS: Potassium Chloride 20 MEQ TAB PO SCH (09:49)
[2018-02-06] MEDS: Metoprolol Tartrate 25 MG TAB PO SCH (09:49)
[2018-02-06] MEDS: Tamsulosin HCl 0.4 MG CAP PO SCH (09:49)
[2018-02-06] MEDS: Lisinopril 5 MG TAB PO SCH (09:49)
[2018-02-06] MEDS: Silver Sulfadiazine 1% Cream 50 GM TUBE TP SCH (09:51)
[2018-02-06] MEDS ORDERED: Metoprolol Tartrate 25 MG TAB PO SCH (13:05)
[2018-02-06] MEDS ORDERED: Metoprolol Tartrate 50 MG TAB PO SCH (13:15)
--- NOTE | 2018-02-06 14:55 | PRG ---
DATE OF SERVICE: 02/06/2018 SUBJECTIVE: Mr. Rey is doing well. He is on room air. PHYSICAL EXAMINATION: VITAL SIGNS: His oximetry is 92%. He has eaten breakfast when I evaluated this morning, his heart r ate is 68. He is afebrile, blood pressure 156/74. LUNGS: Clear. HEART: Regular rhythm. ABDOMEN: Soft. LABORATORY DATA: No new lab today other than blood glucoses which have been less than 200 for the day. IMPRESSION: 1. Status post coronary bypass grafting. 2. Obesity, probable sleep apnea. PLAN: Sleep study as an outpatient. Continue cardiac rehabilitation.
[2018-02-06] MEDS: HYDROcodone/Acetaminophen 10/325 mg Tablet PO PRN ×2 (16:50→20:35)
[2018-02-06] MEDS: Insulin Regular 300 UNITS/3 ML VIAL SC PRN (16:51)
[2018-02-06] MEDS: Metoprolol Tartrate 50 MG TAB PO SCH (20:35)
[2018-02-06] MEDS: Atorvastatin Calcium 10 MG TAB PO SCH (20:35)
[2018-02-07 05:54] LABS: Anion Gap 14 mmol/L (10-20); BUN (Urea Nitrogen) 17 mg/dL (8.4-25.7); Calc. Creatinine Clearance 91 mL/min (70-130); Calcium 8.9 mg/dL (7.8-10.44); Carbon Dioxide 27 mmol/L (23-31); Chloride 106 mmol/L (98-107); Estimated GFR-MDRD 80; Glucose 146 mg/dL (83-110); Potassium 4.4 mmol/L (3.5-5.1); Sodium 143 mmol/L (136-145)
[2018-02-07] MEDS: Aspirin 325 mg Enteric Coated Tablet PO SCH (09:44)
[2018-02-07] MEDS: Metoprolol Tartrate 50 MG TAB PO SCH ×2 (09:44→21:52)
[2018-02-07] MEDS: Lisinopril 5 MG TAB PO SCH (09:44)
[2018-02-07] MEDS: Tamsulosin HCl 0.4 MG CAP PO SCH (09:44)
[2018-02-07] MEDS: Furosemide 40 MG TAB PO SCH ×2 (09:45→13:17)
[2018-02-07] MEDS: Potassium Chloride 20 MEQ TAB PO SCH (09:45)
[2018-02-07] MEDS: Famotidine 20 MG TAB PO SCH ×2 (09:45→21:52)
[2018-02-07] MEDS: HYDROcodone/Acetaminophen 10/325 mg Tablet PO PRN ×4 (09:49→21:52)
[2018-02-07] MEDS: Insulin Regular 300 UNITS/3 ML VIAL SC PRN ×4 (09:50→21:54)
[2018-02-07] MEDS: Silver Sulfadiazine 1% Cream 50 GM TUBE TP SCH (09:50)
[2018-02-07] MEDS ORDERED: Amlodipine 10 MG TAB PO SCH ×2 (10:15→11:30)
--- NOTE | 2018-02-07 17:25 | PRG ---
DATE OF SERVICE: 02/07/2018 SUBJECTIVE: Mr. Harsha Rey was evaluated this morning. He had eaten about 20% of his breakfast. He said he was full. He had no complaints. OBJECTIVE: VITAL SIGNS: He is afebrile. Heart rate is in the 70s, respiratory rate is 18, oximetry is 90% on 2 liters and blood pressure 141/70. LUNGS: Clear. HEART: Regular rhythm. ABDOMEN: Soft. IMPRESSION: Status post coronary bypass grafting, clinically stable. PLAN: Continue current cardiac rehabilitation. He will likely need inpatient hospitalization after surgery in a skilled unit.
[2018-02-07] MEDS: Atorvastatin Calcium 10 MG TAB PO SCH (21:52)
[2018-02-08] MEDS: Insulin Regular 300 UNITS/3 ML VIAL SC PRN ×3 (02:04→21:05)
[2018-02-08] MEDS: Amlodipine 10 MG TAB PO SCH (08:33)
[2018-02-08] MEDS: Famotidine 20 MG TAB PO SCH ×2 (08:33→21:02)
[2018-02-08] MEDS: Furosemide 40 MG TAB PO SCH ×2 (08:33→15:04)
[2018-02-08] MEDS: Tamsulosin HCl 0.4 MG CAP PO SCH (08:34)
[2018-02-08] MEDS: Metoprolol Tartrate 50 MG TAB PO SCH ×2 (08:34→21:02)
[2018-02-08] MEDS: Losartan 25 MG TAB PO SCH (08:34)
[2018-02-08] MEDS: Silver Sulfadiazine 1% Cream 50 GM TUBE TP SCH (08:34)
[2018-02-08] MEDS: Potassium Chloride 20 MEQ TAB PO SCH (08:34)
[2018-02-08] MEDS: Aspirin 325 mg Enteric Coated Tablet PO SCH (08:34)
[2018-02-08] MEDS: HYDROcodone/Acetaminophen 10/325 mg Tablet PO PRN ×3 (11:14→21:02)
--- NOTE | 2018-02-08 12:11 | PRG ---
DATE OF SERVICE: 02/08/2018 Roberto Rey remains stable. PHYSICAL EXAMINATION: VITAL SIGNS: He is afebrile, heart rate is 97, blood pressure 166/80, his room air sats are 92. LUNGS: Clear. HEART: Regular rhythm. ABDOMEN: Soft. He was observed sleeping. He does have some mild obstructive sleep apnea. IMPRESSION: Status post coronary bypass grafting. PLAN: Sleep study as an outpatient. Continue with cardiac rehab.
--- NOTE | 2018-02-08 15:57 | DIS ---
DATE OF ADMISSION: 02/03/2018 DATE OF DISCHARGE: 02/08/2018 PRINCIPAL DIAGNOSIS: Coronary artery disease. SECONDARY DIAGNOSES: Hypertension and diabetes mellitus. PROCEDURES PERFORMED: Coronary artery bypass grafting x3 with left internal mammary artery to the LA D and reverse saphenous vein graft from the aorta to the obtuse marginal and the PDA. HISTORY OF PRESENT ILLNESS AND HOSPITAL COURSE: The patient is a 72-year-old man with hypertension a nd peripheral vascular disease, who claudicates. He was found to have 3-vessel coronary disease with preserved LV function. He was referred for coronary artery bypass grafting. His postoperative cour se was primarily notable for his lack of cooperation with mobilization. He was extubated the morning of surgery, diuresis was initiated, and beta blockade initiated. His home medications were graduall y added back. As his mobilization approached adequacy, he was discharged home on postop day #5. He will be sent home with a prescription for Vicodin as needed for pain. He is to resume his home dose of Norvasc and losartan and his Lopressor has been increased to 50 mg b.i.d. We will plan on seeing him in the office in about 10 days' time.
--- NOTE | 2018-02-08 18:10 | PDOC.CTH ---
Cardiology Progress Note - Subjective No new issues or complaints. He has been walking around with PT. He had a BM yesterday. - Objective Vital Signs Temp Pulse Pulse Pulse Resp BP BP 02/08/18 13:14 92 90 127/66 02/08/18 11:33 99 F 88 22 H 02/08/18 10:20 88 85 121/72 02/08/18 08:33 97 166/80 H 02/08/18 07:20 98.4 F 97 18 02/08/18 07:15 98.4 F 97 18 02/08/18 06:55 87 16 BP BP Pulse Ox Pulse Ox Pulse Ox 02/08/18 13:14 138/68 96 90 L 02/08/18 11:33 129/71 94 L 02/08/18 10:20 140/78 97 92 L 02/08/18 08:33 02/08/18 07:20 92 L 02/08/18 07:15 166/80 H 92 L 02/08/18 06:55 94 L Admit Weight 250 lb 10.649 oz Weight 231 lb 02/07/18 02/08/18 02/09/18 06:59 06:59 06:59 Intake Total 620 Output Total Balance 620 - Physical Examination General/Neuro: alert & oriented x3, NAD Neck: no JVD present Lungs: unlabored respirations Heart: RRR Abdomen: NT/ND Extremities: + edema B (1+) - Telemetry Telemetry Rhythm: NSR - Labs Result Diagrams: 02/05/18 05:21 02/07/18 04:42 - Assessment/Plan 1. 3V CAD with s/p CABG x 3 with RANDOLPH-LAD, saph-OM, and saph-RCA on 02/03/18 2. HTN 3. Hyperlipidemia 4. DM type 2 5. Obese PLAN: - Continue to increase PT as tolerated. - Continue BB/ARB/Aspirin/Statin - May discharge home at any time from cardiac perspective.
[2018-02-08] MEDS: Atorvastatin Calcium 10 MG TAB PO SCH (21:02)
[2018-02-09] MEDS: HYDROcodone/Acetaminophen 10/325 mg Tablet PO PRN ×2 (03:17→09:52)
[2018-02-09] MEDS: Potassium Chloride 20 MEQ TAB PO SCH (08:27)
[2018-02-09] MEDS: Aspirin 325 mg Enteric Coated Tablet PO SCH (09:44)
[2018-02-09] MEDS: Famotidine 20 MG TAB PO SCH (09:45)
[2018-02-09] MEDS: Metoprolol Tartrate 50 MG TAB PO SCH (09:45)
[2018-02-09] MEDS: Amlodipine 10 MG TAB PO SCH (09:45)
[2018-02-09] MEDS: Tamsulosin HCl 0.4 MG CAP PO SCH (09:45)
[2018-02-09] MEDS: Furosemide 40 MG TAB PO SCH (09:46)
[2018-02-09] MEDS: Losartan 25 MG TAB PO SCH (09:47)
[2018-02-09] MEDS: Silver Sulfadiazine 1% Cream 50 GM TUBE TP SCH (09:50)
--- NOTE | 2018-02-09 10:24 | PRG ---
DATE OF SERVICE: 02/09/2018 This morning he is awake, alert, responsive. PHYSICAL EXAMINATION: VITAL SIGNS: Sats are 100% on room air, respiration 20, temperature 97, blood pressure 130/97. CHEST: Chest reveals decreased breath sounds, no wheezing. CARDIAC: Normal S1, S2. No gallops. ABDOMEN: Soft, no masses. IMPRESSION: 1. Status post coronary artery bypass graft. 2. Sleep apnea. 3. Severe deconditioning. PLAN: He is apparently going to home for recuperation, PT. He needs an outpatient study. Please fo llowup with Linda in the next several weeks.
[2018-02-09 11:45] VITALS: BP 128/64; TEMP 97.6
== END 2018-02-09 11:55 | DRG 236 ==
LOC: SURG A 05:36 → CCU 08:03 → EDSTATUS 09:18 → 2NO 02-05 14:05
PROVIDERS: ADMIT Thoracic Surgery (Cardiothoracic Vascular Surgery); ATTEND Thoracic Surgery (Cardiothoracic Vascular Surgery)
PROC: 02100Z9 Bypass Coronary Artery, One Artery from Left Internal Mammary, Open Approach (ICD-10-PCS; principal; 2018-02-03)
PROC: 021109W Bypass Coronary Artery, Two Arteries from Aorta with Autologous Venous Tissue, Open Approach (ICD-10-PCS; 2018-02-03)
PROC: 06BQ4ZZ Excision of Left Saphenous Vein, Percutaneous Endoscopic Approach (ICD-10-PCS; 2018-02-03)
PROC: 5A1221Z Performance of Cardiac Output, Continuous (ICD-10-PCS; 2018-02-03)
DX: I25.10 Atherosclerotic heart disease of native coronary artery without angina pectoris (principal); E87.2 Acidosis; E11.42 Type 2 diabetes mellitus with diabetic polyneuropathy; E11.51 Type 2 diabetes mellitus with diabetic peripheral angiopathy without gangrene; E78.5 Hyperlipidemia, unspecified; E66.9 Obesity, unspecified; I10 Essential (primary) hypertension; F17.210 Nicotine dependence, cigarettes, uncomplicated; Z68.36 Body mass index [BMI] 36.0-36.9, adult; G47.33 Obstructive sleep apnea (adult) (pediatric); Z79.4 Long term (current) use of insulin; Z79.899 Other long term (current) drug therapy; Z96.651 Presence of right artificial knee joint
CPT/HCPCS: 36415; 36416; 36430; 71045; 71046; 80048; 82805; 85025; 85610; 85730; 86850; 86900; 86901; 88184; 88305; 88307; 93005; 93010; 93798; 94002; 94003; 94150; 94640; J0282; J0360; J1642; J1644; J1815; J1885; J2001; J2250; J2270; J2370; J2440; J2704; J2720; J2920; J3010; J3370; J3475; J3480; J7050; J7620; P9045; S0017; S0028

== ENCOUNTER 2019-05-09 13:56 | Outpatient (CLI) | payer MEDICARE, MEDICAID ==
--- NOTE | 2019-05-09 14:13 | RAD ---
Chest 2 views HISTORY: Cough. COMPARISON: 05/05/2018. FINDINGS: Cardiac silhouette is unremarkable. Pulmonary vasculature upper limits of normal. Lungs rem ain somewhat hyperinflated. Mediastinum is midline with postoperative changes. No confluent airspace consolidation, pneumothorax, or pleural fluid. Degenerative changes thoracic spine on the la teral view. IMPRESSION: Chronic-type findings are stable. No active cardiopulmonary abnormalities are demonstrate d.
== END 2019-05-09 13:57 | disposition home or self-care (01) ==
LOC: RAD 13:56
PROVIDERS: ATTEND Internal Medicine Pulmonary Disease
DX: R06.00 Dyspnea, unspecified (principal)
CPT/HCPCS: 71046

== ENCOUNTER 2020-01-19 12:45 | Outpatient (CLI) | payer MEDICARE, MEDICAID ==
[2020-01-19] MEDS ORDERED: Iopamidol 370 76% 50 ML VIAL FS ONE (14:42)
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
== END 2020-01-19 12:46 | disposition home or self-care (01) ==
LOC: CT 12:45
PROVIDERS: ATTEND Thoracic Surgery (Cardiothoracic Vascular Surgery)
DX: I70.203 Unspecified atherosclerosis of native arteries of extremities, bilateral legs (principal)
CPT/HCPCS: 75635; 82565; Q9967

== ENCOUNTER 2020-02-24 05:39 | Outpatient (CLI) | payer MEDICARE, MEDICAID ==
--- NOTE | 2020-02-24 16:50 | EKG ---
Test Reason : Blood Pressure : / mmHG Vent. Rate : 067 BPM Atrial Rate : 067 BPM P-R Int : 168 ms QRS Dur : 088 ms QT Int : 390 ms P-R-T Axes : 043 -38 130 degrees QTc Int : 412 ms Normal sinus rhythm Left axis deviation Inferior infarct , age undetermined T wave abnormality, consider anterolateral ischemia Abnormal ECG Confirmed by Marco MACIEL ([id number]) on 02/24/2020 4:50:08 PM Referred By: MARGARITA Confirmed By:Marco MACIEL
== END 2020-02-24 05:40 | disposition home or self-care (01) ==
LOC: LABBT 05:39
PROVIDERS: ATTEND Thoracic Surgery (Cardiothoracic Vascular Surgery)
DX: Z01.810 Encounter for preprocedural cardiovascular examination (principal); I73.9 Peripheral vascular disease, unspecified
CPT/HCPCS: 93005; 93010

== ENCOUNTER 2020-02-27 06:06 | Inpatient (IN) | payer MEDICARE, MEDICAID ==
[2020-02-24 14:54] LABS: Hemoglobin 15.9 g/dL (14.0-18.0); Mean Corpuscular Hemoglobin 27.9 pg (27.0-31.0); Mean Corpuscular Volume 87.1 fL (78.0-98.0); Mean Platelet Volume 9.2 fL (7.4-10.4); Platelet Count 195 thou/uL (130-400); RBC Distribution Width 15.1 % (11.5-14.5); Red Blood Cell (RBC) Count 5.72 mill/uL (4.70-6.10); White Blood Cell (WBC) Count 9.3 thou/uL (4.8-10.8)
[2020-02-24 15:21] LABS: Anion Gap 16 mmol/L (10-20); BUN (Urea Nitrogen) 20 mg/dL (8.4-25.7); Calc. Creatinine Clearance 0 mL/min (70-130); Calcium 9.1 mg/dL (7.8-10.44); Carbon Dioxide 27 mmol/L (23-31); Chloride 105 mmol/L (98-107); Estimated GFR-MDRD 50; Glucose 70 mg/dL (83-110); Potassium 3.7 mmol/L (3.5-5.1); Sodium 144 mmol/L (136-145)
[2020-02-27] MEDS ORDERED: Protamine Sulfate 50 MG/5 ML VIAL ONE (06:36)
[2020-02-27] MEDS ORDERED: Heparin 5,000 UNITS/ML VIAL ONE (06:36)
[2020-02-27] MEDS ORDERED: Iothalamate Meglumine 60% 50 ML VIAL FS ONE ×2 (06:48→09:01)
[2020-02-27] MEDS ORDERED: Bupivacaine PF 0.5% 30 ML VIAL ONE (06:52)
[2020-02-27] MEDS ORDERED: EPINEPHrine 1 MG/ML AMP ONE (06:52)
[2020-02-27] MEDS ORDERED: PROPOFOL 20 ML ONE (07:05)
[2020-02-27] MEDS ORDERED: Fentanyl 250 MCG/5 ML VIAL ONE (07:05)
[2020-02-27] MEDS ORDERED: Nitroglycerin 50 MG/250 ML BOT 0 ML ONE (07:05)
[2020-02-27] MEDS ORDERED: Norepinephrine 4 MG/4 ML VIAL ONE (07:05)
[2020-02-27] MEDS ORDERED: Succinylcholine Chloride 20 MG/ML 10 ml SYRINGE FS ONE ×2 (09:34→10:40)
[2020-02-27] MEDS ORDERED: SUGAMMADEX SODIUM 200 MG/2 ML VIAL ONE (09:39)
--- NOTE | 2020-02-27 10:05 | OP ---
DATE OF PROCEDURE: 02/27/2020 PREOPERATIVE DIAGNOSIS: Peripheral vascular disease. POSTOPERATIVE DIAGNOSIS: Peripheral vascular disease. PROCEDURES PERFORMED: 1. Right common femoral/superficial femoral artery endarterectomy with patch angioplasty utilizing bovine pericardial patch. 2. Right superficial femoral artery angiogram. 3. Right superficial femoral artery percutaneous transluminal angioplasty with a 6 x 100 Lutonix drug-eluting balloon taken to 12 mmHg for 3 minutes. TOTAL CONTRAST: 40 mL. TOTAL FLUORO TIME: 4 minutes 40 seconds. ESTIMATED BLOOD LOSS: 100. DESCRIPTION OF PROCEDURE: After consent was obtained, the patient was brought to the operating room and placed in supine position on the operating room table. Appropriate central line and monitors were placed, and general endotracheal anesthesia was induced. Right leg was prepped and draped in usual sterile fashion. Common femoral at the inguinal ligament and superficial femoral arteries were exposed through a long groin incision. The profunda was also exposed. The patient was systemically heparinized. Common femoral, superficial femoral, and profunda femoris arteries were clamped. Incision was made on the superficial femoral artery and extended across its origin onto the common femoral artery proximal to the profunda take off. The superficial femoral artery was critically stenosed at its origin. Endarterectomy was performed at this level opening the superficial femoral artery. There was good backbleeding from superficial femoral artery and the profunda. After endarterectomy, the bovine pericardial patch was sewn in place with running 5-0 Prolene suture. Clamps were all removed. There was good palpable pulse within the superficial femoral artery distal to the patch. There was a soft area just distal to the patch. This soft spot on the SFA was accessed with a needle and Bentson guidewire passed down to the level of knee. Hand-injected arteriogram was performed through 5-Yoruba sheath showing long segment multifocal stenosis of the superficial femoral artery. Initial angioplasty was performed with a 5 x 80 Troy balloon. This was upsized to a 6 x 100 Lutonix balloon. Post angioplasty angiogram showed an excellent result. The access site was closed with interrupted 5-0 Prolene suture. The patient had been given 7500 units of heparin at the beginning of the procedure. 50 mg of protamine was given. Wounds were copiously irrigated. Hemostasis was ensured. Wounds were then closed in layers. Clips were placed in the skin. The patient was awakened, extubated, and transferred to recovery room in stable condition. Job ID: [id number] [facility]
[2020-02-27] MEDS ORDERED: Promethazine HCl 25 MG/ML VIAL IM PRN (10:07)
[2020-02-27] MEDS ORDERED: Promethazine HCl 25 MG/ML VIAL SLOW IVP PRN (10:07)
[2020-02-27] MEDS ORDERED: Ondansetron HCl/PF 4 MG/2 ML Vial IVP PRN (10:07)
[2020-02-27] MEDS ORDERED: Fentanyl 100 MCG/2 ML VIAL ONE ×2 (10:16→10:30)
[2020-02-27] MEDS ORDERED: EPHEDRINE 25 MG/5 ML SYRINGE ONE (10:40)
[2020-02-27] MEDS ORDERED: Labetalol HCl 100 MG/20 ML VIAL ONE (10:40)
[2020-02-27] MEDS ORDERED: PROPOFOL 200 MG/20 ML VIAL ONE (10:40)
[2020-02-27] MEDS ORDERED: Glycopyrrolate 0.2 MG/ML 5 ML SYRINGE ONE (10:40)
[2020-02-27] MEDS ORDERED: Rocuronium Bromide 10 MG/ML (10ML VIAL) ONE (10:40)
[2020-02-27] MEDS ORDERED: Lidocaine 1% PF 5 ML VIAL ONE (10:40)
[2020-02-27] MEDS ORDERED: Insulin Regular 300 UNITS/3 ML VIAL SC PRN (12:04)
[2020-02-27] MEDS ORDERED: Acetaminophen 325 MG TAB PO PRN (12:04)
[2020-02-27] MEDS ORDERED: traMADol HCl 50 MG TAB PO PRN ×2 (12:04)
[2020-02-27] MEDS ORDERED: Fentanyl 100 MCG/2 ML VIAL SLOW IVP PRN (12:04)
[2020-02-27] MEDS ORDERED: Ondansetron PF 4 MG/2 ML Vial IVP PRN (12:04)
[2020-02-27] MEDS: D5 1/2 NS w/20 mEq KCL 1,000 ML IV SCH ×2 (13:11→21:55)
[2020-02-27] MEDS: Furosemide 40 MG TAB PO SCH (13:49)
[2020-02-27] MEDS: CEFAZOLIN 2 GM in Premix Bag 1 BAG IVPB SCH ×2 (13:51→21:49)
[2020-02-27] MEDS: Gabapentin 300 MG CAP PO SCH ×2 (16:01→19:58)
[2020-02-27] MEDS ORDERED: HYDROcodone/Acetaminophen 5/325 mg Tablet PO PRN (16:50)
[2020-02-27] MEDS ORDERED: hydrALAZINE 20 MG/ML VIAL SLOW IVP PRN (19:04)
[2020-02-27] MEDS: Metoprolol Tartrate 50 MG TAB PO SCH (19:09)
[2020-02-27] MEDS: HYDROcodone/Acetaminophen 5/325 mg Tablet PO PRN ×2 (19:56→23:21)
[2020-02-27] MEDS: Rosuvastatin 20 MG TAB PO SCH (19:57)
[2020-02-27] MEDS: Fentanyl 100 MCG/2 ML VIAL SLOW IVP PRN (21:31)
[2020-02-27] MEDS: HumuLIN 70/30 (300 UNITS/3 ML VIAL) SC SCH (21:33)
[2020-02-28] MEDS: HYDROcodone/Acetaminophen 5/325 mg Tablet PO PRN ×5 (03:12→23:52)
[2020-02-28] MEDS: CEFAZOLIN 2 GM in Premix Bag 1 BAG IVPB SCH (06:01)
[2020-02-28] MEDS: Potassium Chloride 20 MEQ TAB PO SCH (08:49)
[2020-02-28] MEDS: D5 1/2 NS w/20 mEq KCL 1,000 ML IV SCH (08:50)
[2020-02-28] MEDS: Aspirin 81 mg Enteric Coated Tablet PO SCH (08:50)
[2020-02-28] MEDS: Furosemide 40 MG TAB PO SCH ×2 (08:51→13:31)
[2020-02-28] MEDS: Gabapentin 300 MG CAP PO SCH ×3 (08:51→20:28)
[2020-02-28] MEDS: Clopidogrel Bisulfate 75 MG TAB PO SCH (08:51)
[2020-02-28] MEDS: Cyanocobalamin (Vitamin B-12) 1,000 MCG TAB PO SCH (08:51)
[2020-02-28] MEDS: Metoprolol Tartrate 50 MG TAB PO SCH ×2 (08:51→20:28)
[2020-02-28] MEDS: Isosorbide Mononitrate (ER) 30 MG TAB PO SCH (08:51)
[2020-02-28] MEDS: Montelukast Sodium 10 mg Tablet PO SCH (08:52)
[2020-02-28] MEDS: Tamsulosin HCl 0.4 MG CAP PO SCH (08:52)
[2020-02-28] MEDS: HumuLIN 70/30 (300 UNITS/3 ML VIAL) SC SCH ×2 (08:57→21:55)
[2020-02-28] MEDS ORDERED: Aspirin Chewable 81 MG TAB PO SCH (09:00)
[2020-02-28] MEDS: Fluticasone Propionate Nasal Spray 16 gm Bottle NASAL SCH (09:14)
[2020-02-28] MEDS: Fentanyl 100 MCG/2 ML VIAL SLOW IVP PRN (12:05)
[2020-02-28 17:51] VITALS: BMI 38.2
[2020-02-28] MEDS: Rosuvastatin 20 MG TAB PO SCH (20:26)
[2020-02-29] MEDS: Gabapentin 300 MG CAP PO SCH ×2 (08:09→14:31)
[2020-02-29] MEDS: Montelukast Sodium 10 mg Tablet PO SCH (08:09)
[2020-02-29] MEDS: Furosemide 40 MG TAB PO SCH ×2 (08:09→14:31)
[2020-02-29] MEDS: Isosorbide Mononitrate (ER) 30 MG TAB PO SCH (08:09)
[2020-02-29] MEDS: Clopidogrel Bisulfate 75 MG TAB PO SCH (08:10)
[2020-02-29] MEDS: Tamsulosin HCl 0.4 MG CAP PO SCH (08:10)
[2020-02-29] MEDS: Aspirin 81 mg Enteric Coated Tablet PO SCH (08:10)
[2020-02-29] MEDS: Potassium Chloride 20 MEQ TAB PO SCH (08:10)
[2020-02-29] MEDS: Metoprolol Tartrate 50 MG TAB PO SCH (08:10)
[2020-02-29] MEDS: Fluticasone Propionate Nasal Spray 16 gm Bottle NASAL SCH (08:14)
[2020-02-29] MEDS: Cyanocobalamin (Vitamin B-12) 1,000 MCG TAB PO SCH (08:16)
[2020-02-29] MEDS: HYDROcodone/Acetaminophen 5/325 mg Tablet PO PRN ×2 (08:24→13:59)
[2020-02-29] MEDS: HumuLIN 70/30 (300 UNITS/3 ML VIAL) SC SCH (08:28)
[2020-02-29 09:42] VITALS: TEMP 99.2
[2020-02-29 15:08] VITALS: BP 192/101
--- NOTE | 2020-02-29 16:42 | DIS ---
DATE OF ADMISSION: 02/27/2020 DATE OF DISCHARGE: 02/29/2020 DIAGNOSIS: Peripheral vascular disease. PROCEDURES: Right common femoral/superficial femoral endarterectomy with patch angioplasty and right superficial femoral BROADCAST DESIGNER with drug-eluting balloon. DISCHARGE MEDICATIONS: Unchanged with the exception of addition of Plavix 75 mg daily. DESCRIPTION OF HOSPITAL STAY: Mr. Rey was admitted for the above procedure. He has done well and being discharged to home today to follow up with me in 2 weeks. Job ID: [id number]
== END 2020-02-29 15:39 | disposition home or self-care (01) | DRG 254 ==
LOC: SURG A 06:06 → CCU 09:03 → 2NO 11:47
PROVIDERS: ADMIT Thoracic Surgery (Cardiothoracic Vascular Surgery); ATTEND Thoracic Surgery (Cardiothoracic Vascular Surgery)
PROC: 04CK0ZZ Extirpation of Matter from Right Femoral Artery, Open Approach (ICD-10-PCS; principal; 2020-02-27)
PROC: 04UK0JZ Supplement Right Femoral Artery with Synthetic Substitute, Open Approach (ICD-10-PCS; 2020-02-27)
PROC: 047K3Z1 Dilation of Right Femoral Artery using Drug-Coated Balloon, Percutaneous Approach (ICD-10-PCS; 2020-02-27)
PROC: B41F1ZZ Fluoroscopy of Right Lower Extremity Arteries using Low Osmolar Contrast (ICD-10-PCS; 2020-02-27)
DX: E11.51 Type 2 diabetes mellitus with diabetic peripheral angiopathy without gangrene (principal); Z79.4 Long term (current) use of insulin; I10 Essential (primary) hypertension; Z80.9 Family history of malignant neoplasm, unspecified; Z82.49 Family history of ischemic heart disease and other diseases of the circulatory system; N40.0 Benign prostatic hyperplasia without lower urinary tract symptoms; F17.210 Nicotine dependence, cigarettes, uncomplicated; I25.10 Atherosclerotic heart disease of native coronary artery without angina pectoris; E66.01 Morbid (severe) obesity due to excess calories; Z68.38 Body mass index [BMI] 38.0-38.9, adult; E78.2 Mixed hyperlipidemia; Z95.1 Presence of aortocoronary bypass graft
CPT/HCPCS: 36416; 76000; 80048; 85027; 86850; 86900; 86901; 93005; C1725; J0171; J0360; J0690; J1642; J1644; J1815; J2001; J2704; J2720; J3010; S0020

== ENCOUNTER 2020-08-29 11:59 | Inpatient (IN) | payer MEDICARE, OTHER ==
[2020-08-29] MEDS ORDERED: Dextrose 50% Abboject 50 ML SYRINGE ONE ×2 (13:00→13:02)
--- NOTE | 2020-08-29 13:09 | RAD ---
EXAM: Single view of the chest HISTORY: Seizure COMPARISON: 02/05/2018 FINDINGS: Single view of the chest shows an enlarged but stable cardiomediastinal silhouette. The pa tient is status post sternotomy. Diffuse increased interstitial markings are present. No obvious consolidation or pleural effusion are seen. No acute osseous abnormality. IMPRESSION: No evidence of acute cardiopulmonary disease
--- NOTE | 2020-08-29 13:18 | CT ---
Exam: Head CT without contrast HISTORY: Possible seizure COMPARISON: 09/17/2028 FINDINGS: Hemorrhage: No intraparenchymal hemorrhage or extra-axial hematoma. Brain parenchyma: Cortical jones-white matter differentiation is preserved. No mass effect or midline shift. Basilar cisterns are patent.Confluent white matter hypodensities due to chronic small vessel ischemic change. Ventricular system: Ventricles and sulci are patent and symmetric. Calvarium: Intact. Sinuses and mastoid air cells: Adequate aeration. IMPRESSION: 1. No acute intracranial process 2. Chronic small vessel ischemic changes white matter 3. If this is the patient's first seizure, further evaluation with brain MRI is recommended to exclud e a possible underlying parenchymal lesion.
[2020-08-29 13:34] LABS: #Lymphocytes 0.8 thou/uL (1.20-3.40); #Monocytes 0.7 thou/uL (0.11-0.59); #Neutrophils 5.8 thou/uL (1.40-6.50); %Eosinophils 0.3 % (0.0-10.0); %Lymphocytes 11.3 % (21.0-51.0); %Monocytes 9.7 % (0.0-10.0); %Neutrophils 78.7 % (42.0-75.0); Hemoglobin 16.6 g/dL (14.0-18.0); MDiff Complete? YES; Mean Corpuscular HGB CONC 30.6 g/dL (32.0-36.0); Mean Corpuscular Hemoglobin 26.7 pg (27.0-31.0); Mean Corpuscular Volume 87.3 fL (78.0-98.0); Mean Platelet Volume 10.7 fL (7.4-10.4); Platelet Count 160 thou/uL (130-400); Platelet Morphology Comment Appears Adequate; Polychromasia SLIGHT = 2-3 cells (100X) (0-2/hpf); RBC Distribution Width 14.4 % (11.5-14.5); White Blood Cell (WBC) Count 7.4 thou/uL (4.8-10.8)
[2020-08-29 14:00] LABS: CKMB 3.5 ng/mL (0-6.6)
[2020-08-29 14:01] LABS: INR-International Normal Ratio 1.1; PTT 29.8 sec (22.9-36.1); Prothrombin Time 14.2 sec (12.0-14.7)
[2020-08-29 14:18] LABS: ALT (SGPT) 20 U/L (8-55); AST (SGOT) 46 U/L (5-34); Albumin 3.5 g/dL (3.4-4.8); Alkaline Phosphatase 101 U/L (40-110); Anion Gap 17 mmol/L (10-20); BUN (Urea Nitrogen) 15 mg/dL (8.4-25.7); Bilirubin, Total 0.7 mg/dL (0.2-1.2); Calc. Creatinine Clearance 0 mL/min (70-130); Calcium 8.4 mg/dL (7.8-10.44); Carbon Dioxide 22 mmol/L (23-31); Chloride 99 mmol/L (98-107); Estimated GFR-MDRD 58; Globulin 4.4 g/dL (2.4-3.5); Glucose 120 mg/dL (83-110); Potassium 4.1 mmol/L (3.5-5.1); Protein, Total 7.9 g/dL (5.8-8.1); Sodium 134 mmol/L (136-145)
[2020-08-29] MEDS ORDERED: Morphine 4 MG/ML VIAL ONE (14:34)
--- NOTE | 2020-08-29 15:46 | PDOC.HHP ---
Hospitalist HPI - History of Present Illness low blood sugar History of Present Illness: PCP: Radha Patient is a 74-year-old male with past medical history significant for diabetes mellitus type 2, CABG, and hypertension. He was at his pain doctor for a scheduled appointment when he became unresponsive. He states that he was drowsy and that he wanted to lay his head down for a minute against the wall next to him. The office staff said they had a hard time arousing him and called EMS. There was possibly seizure activity noted by EMS, patient does not have a history of seizures. EMS states that they gave oral glucose for blood glucose of 53 prehospital. Patient states that he took his 55 units of insulin this morning as scheduled but did not eat breakfast or lunch as he was running late for his appointment. He states that normally he is compliant with his medication and does eat with a but due to time restraints he was unable to today. He states he is now feeling back to his normal self other than just a little bit groggy which he feels after his sugar drops. Patient denies shor tness of breath, chest pain, bowel or bladder changes, contact with sick persons. He states that he has been compliant with his medications although he is unable remember the names of them. ED Course: VITAL SIGNS ThuAug 29, 2020 12:01 VICTOR HUGO Us Cory BP: 127/73, MAP: 91, Pulse: 70, Resp: 33, Temp: 98.3 (Oral), O2 sat: 93 on (Room Air), Time: 08/29/2020 12:01. VITAL SIGNS ThuAug 29, 2020 12:45 VICTOR HUGO Randhawa Rachel BP: 165/76 (Sitting), MAP: 105, Pulse: 68, Resp: 29 (Non-Labored), O2 sat: 97 on (Room Air), Time: 08/29/2020 12:45. VITAL SIGNS ThuAug 29, 2020 13:06 VICTOR HUGO Shaw Sarah BP: 160/86, MAP: 110, Pulse: 69, Resp: 18, O2 sat: 98 on (Room Air), Time: 08/29/2020 13:06. VITAL SIGNS ThuAug 29, 2020 14:29 VICTOR HUGO Shaw Sarah BP: 168/69, MAP: 102, Pulse: 68, Resp: 20, O2 sat: 100 on (Room Air), Time: 08/29/2020 14:29. Today in the ER the patient had lab work, EKG, chest x-ray, and head CT completed. The patient was given 324 mg of aspirin, 4 mg morphine, and an amp of D50. Hospitalist ROS - Review of Systems Constitutional: reports: weakness, malaise All other systems reviewed; all pertinent +/- noted in HPI/Subj - Medication Medications: NKDA Current medications: doxycycline hyclate oral ThuAug 29, 2020 15:08 VICTOR HUGO Shaw Sarah tablet : Strength - 100 mg : ORAL Patient Dose: Unknown. insulin 55 units BID ThuAug 29, 2020 15:09 VICTOR HUGO Shaw Sarah Hospitalist History - Past Medical History Source: patient Cardiac: reports: HTN, Hyperlipidemia Musculoskeletal: reports: Chronic low back pain Renal/: reports: Benign prostatic enlarg. Endocrine: reports: Diabetes - Past Surgical History Past Surgical History: reports: CABG, Total Knee Replacement Other Surgical History: Left femoral endarterectomy - Family History Family History: reports: no pertinent history - Social History Smoking Status: Never smoker Alcohol: reports: None Drugs: reports: none Living Situation: Alone Activity level: uses cane/walker - Exam General Appearance: NAD, awake alert Heart: RRR, no murmur, no gallops, no rubs Respiratory: CTAB, no wheezes, no rales, no ronchi Gastrointestinal: soft, non-tender, non-distended, normal bowel sounds Extremities: no edema Psychiatric: normal affect, normal behavior, A&O x 3 Hospitalist Results - Labs Result Diagrams: 08/29/20 12:53 08/29/20 13:45 Lab results: WBC 7.4 thou/uL (4.8-10.8) 08/29/20 12:53 Hgb 16.6 g/dL (14.0-18.0) 08/29/20 12:53 Hct 54.1 % (42.0-52.0) H 08/29/20 12:53 MCV 87.3 fL (78.0-98.0) 08/29/20 12:53 Plt Count 160 thou/uL (130-400) 08/29/20 12:53 Neutrophils % 78.7 % (42.0-75.0) H 08/29/20 12:53 Sodium 134 mmol/L (136-145) L 08/29/20 13:45 Potassium 4.1 mmol/L (3.5-5.1) 08/29/20 13:45 Chloride 99 mmol/L (98-107) 08/29/20 13:45 Carbon Dioxide 22 mmol/L (23-31) L 08/29/20 13:45 BUN 15 mg/dL (8.4-25.7) 08/29/20 13:45 Creatinine 1.44 mg/dL (0.7-1.3) H 08/29/20 13:45 Glucose 120 mg/dL (83-110) H 08/29/20 13:45 Calcium 8.4 mg/dL (7.8-10.44) 08/29/20 13:45 Total Bilirubin 0.7 mg/dL (0.2-1.2) 08/29/20 13:45 AST 46 U/L (5-34) H 08/29/20 13:45 ALT 20 U/L (8-55) 08/29/20 13:45 Alkaline Phosphatase 101 U/L (40-110) 08/29/20 13:45 CK-MB (CK-2) 3.5 ng/mL (0-6.6) 08/29/20 12:53 Troponin I 0.050 ng/mL (< 0.028) H 08/29/20 12:53 Serum Total Protein 7.9 g/dL (5.8-8.1) 08/29/20 13:45 Albumin 3.5 g/dL (3.4-4.8) 08/29/20 13:45 - EKG Interpretation EKG: Sinus rhythm 70 bpm no ectopic beatsEKG reviewed by me - Radiology Interpretation CT scan - head Status: report reviewed by me Additional Comment: Exam: Head CT without contrast HISTORY: Possible seizure COMPARISON: 09/17/2028 FINDINGS: Hemorrhage: No intraparenchymal hemorrhage or extra-axial hematoma. Brain parenchyma: Cortical jones-white matter differentiation is preserved. No mass effect or midline shift. Basilar cisterns are patent.Confluent white matter hypodensities due to chronic small vessel ischemic change. Ventricular system: Ventricles and sulci are patent and symmetric. Calvarium: Intact. Sinuses and mastoid air cells: Adequate aeration. IMPRESSION: 1. No acute intracranial process 2. Chronic small vessel ischemic changes white matter 3. If this is the patients first seizure, further evaluation with brain MRI is recommended to exclude a possible underlying parenchymal lesion. Chest x-ray Status: image reviewed by me, report reviewed by me Additional Comment: EXAM: Single view of the chest HISTORY: Seizure COMPARISON: 02/05/2018 FINDINGS: Single view of the chest shows an enlarged but stable cardiomediastinal silhouette. The patient is status post sternotomy. Diffuse increased interstitial markings are present. No obvious consolidation or pleural effusion are seen. No acute osseous abnormality. IMPRESSION: No evidence of acute cardiopulmonary disease Hospitalist H&P A/P - Plan Plan: Hypoglycemia- resolved Continue to monitor Accu-Cheks AC at bedtime Patient on heart healthy diet Was likely caused from patient not eating two meals after taking long-acting insulin Possible seizure Possibly from hyperglycemic state Obtain prolactin level Seizure precautions EEG Hypertension Monitor vital signs every 4 hours Monitor on telemetry Indeterminate troponin Patient denies chest pain or shortness of breath Continue to trend troponins, unsure of patient's baseline level Chronic kidney disease In looking history patient's GFR ranges from 50-72 and his last visit, currently is 58 Creatinine slightly bumped at 1.44 last visit 2 months ago was 1.19 Chronic pain We will monitor patient's pain and treat as needed VTE prophylaxis with SCDs, GI prophylaxis with Pepcid CODE STATUS: Full Surrogate decision-maker: Montserrat Rey, ex- or Roberto, son Patient was discussed with attending physician, Dr. Cuadra.
[2020-08-29] MEDS ORDERED: Aspirin 81 mg Enteric Coated Tablet ONE (15:56)
[2020-08-29] MEDS ORDERED: Dextrose 5% in Water 1,000 ML IV PRN (16:11)
[2020-08-29 17:57] LABS: Troponin I 0.051 ng/mL (< 0.028)
[2020-08-29 20:41] LABS: Troponin I 0.049 ng/mL (< 0.028)
[2020-08-29] MEDS: Famotidine 20 MG TAB PO SCH (21:30)
[2020-08-30 05:28] LABS: #Lymphocytes 1.4 thou/uL (1.20-3.40); #Monocytes 0.6 thou/uL (0.11-0.59); #Neutrophils 3.9 thou/uL (1.40-6.50); %Basophils 0.1 % (0.0-1.0); %Eosinophils 0.2 % (0.0-10.0); %Lymphocytes 24.2 % (21.0-51.0); %Monocytes 10.5 % (0.0-10.0); Hemoglobin 15.9 g/dL (14.0-18.0); Mean Corpuscular HGB CONC 30.7 g/dL (32.0-36.0); Mean Corpuscular Hemoglobin 27.3 pg (27.0-31.0); Mean Corpuscular Volume 88.7 fL (78.0-98.0); Mean Platelet Volume 9.2 fL (7.4-10.4); Platelet Count 169 thou/uL (130-400); RBC Distribution Width 14.3 % (11.5-14.5); Red Blood Cell (RBC) Count 5.82 mill/uL (4.70-6.10)
[2020-08-30 05:52] LABS: Anion Gap 20 mmol/L (10-20); BUN (Urea Nitrogen) 14 mg/dL (8.4-25.7); Calc. Creatinine Clearance 81 mL/min (70-130); Calcium 8.4 mg/dL (7.8-10.44); Carbon Dioxide 18 mmol/L (23-31); Chloride 99 mmol/L (98-107); Estimated GFR-MDRD 73; Glucose 101 mg/dL (83-110); Potassium 3.9 mmol/L (3.5-5.1); Sodium 133 mmol/L (136-145)
[2020-08-30] MEDS: Famotidine 20 MG TAB PO SCH ×2 (08:22→20:38)
[2020-08-30] MEDS ORDERED: Tamsulosin HCl 0.4 MG CAP PO SCH (09:00)
[2020-08-30] MEDS: Acetaminophen 325 MG TAB PO PRN ×3 (09:17→20:38)
[2020-08-30] MEDS: Metoprolol Tartrate 50 MG TAB PO SCH ×2 (09:18→20:38)
[2020-08-30] MEDS: Montelukast Sodium 10 mg Tablet PO SCH (09:18)
[2020-08-30] MEDS: Aspirin 81 mg Enteric Coated Tablet PO SCH (09:18)
[2020-08-30] MEDS: Tamsulosin HCl 0.4 MG CAP PO SCH (09:18)
[2020-08-30] MEDS: Clopidogrel Bisulfate 75 MG TAB PO SCH (09:18)
[2020-08-30 10:10] LABS: ALT (SGPT) 22 U/L (8-55); AST (SGOT) 54 U/L (5-34); Albumin 3.3 g/dL (3.4-4.8); Alkaline Phosphatase 95 U/L (40-110); Bilirubin, Direct 0.3 mg/dL (0.1-0.3); Bilirubin, Total 0.8 mg/dL (0.2-1.2); Protein, Total 7.8 g/dL (5.8-8.1)
[2020-08-30] MEDS: HumaLOG 300 UNITS/3 ML VIAL SC PRN ×2 (11:13→20:42)
--- NOTE | 2020-08-30 12:06 | RAD ---
CHEST 1 VIEW: DATE: 08/30/2020 COMPARISON: 08/29/2020. HISTORY: Fever. FINDINGS: There are sternotomy wires. Normal cardiac silhouette. Pulmonary vessels and hilum are normal. Costop hrenic angles are clear. Persistent interstitial and alveolar opacities suggesting edema or infiltrat e. No pneumothorax or acute osseous abnormality. Suggestion of a hiatal hernia projecting over the cardiac silhouette. IMPRESSION: Persistent interstitial and alveolar opacity due to edema or infiltrate. POS: WIL
[2020-08-30 12:25] LABS: SARS-CoV-2 MS2 Positive; SARS-CoV-2 N Gene Positive; SARS-CoV-2 S Gene Positive; SARS-CoV-2 by NAA DETECTED (NotDetected); SARS-CoV-2 orf1ab Positive
--- NOTE | 2020-08-30 17:17 | ULT ---
SOFT TISSUE NECK ULTRASOUND: 08/30/20 HISTORY: Evaluate for cervical lymphadenopathy. COMPARISON: None. TECHNIQUE: Targeted sonographic imaging of the region of concern was performed. FINDINGS: There is evidence of soft tissue echotexture in the left and right neck. There is no evidence of lymp hadenopathy. IMPRESSION: No sonographic evidence of lymphadenopathy. Further evaluation with a postcontrast soft tissue neck C T is recommended. Additionally, direct comparison with prior imaging would be beneficial. POS: WIL
--- NOTE | 2020-08-30 18:38 | EEG ---
DATE OF SERVICE: 08/30/2020 ATTENDING PHYSICIAN: Allyson Sharpe MD This EEG was performed using 24-channel [employer] video digital EEG machine with 24-disk electrodes. This was an extended 2 hours 6 minutes of inpatient video EEG recording. Digital analysis of the EEG was done for spike and seizure detection, which revealed no abnormalities. BACKGROUND: The posterior background rhythm is 10 to 12 Hz. The background rhythm attenuates with eye opening and enhances with eye closure. HYPERVENTILATION: Not performed. PHOTIC STIMULATION: Bioccipital symmetric driving responses observed. SLEEP: Drowsiness and sleep are observed. EEG DIAGNOSIS: Occasional irregular theta activity seen during the recording. CLINICAL INTERPRETATION: This EEG is consistent with mild generalized cerebral dysfunction. Job ID: [id number]
--- NOTE | 2020-08-30 19:49 | PDOC.HOSPP ---
- Subjective Encounter Date: 08/30/20 Encounter Time: 08:00 Subjective: The patient has no complaints. He does not remember passing out, just laying down. He doesn't recall if he skipped his meals. He denies cough, SOB. He had fever today 100.4 - Objective Vital Signs & Weight: Vital Signs (12 hours) Temp Pulse Resp BP BP Pulse Ox 08/30/20 17:00 98.9 F 63 20 154/70 H 92 L 08/30/20 12:20 98.8 F 73 18 153/67 H 94 L 08/30/20 08:00 100.4 F H 84 24 H 227/95 H 227/95 H 94 L Weight Admit Weight 234 lb 8 oz Weight 234 lb 8 oz I&O: 08/29/20 08/30/20 08/31/20 06:59 06:59 06:59 Intake Total 240 Balance 240 Result Diagrams: 08/30/20 04:55 08/30/20 04:55 Additional Labs: Accuchecks 08/30/20 08/30/20 08/29/20 17:37 11:11 21:33 POC Glucose 163 H 282 H 86 08/29/20 08/29/20 13:04 12:17 POC Glucose 69 L 54 L* Hospitalist ROS - Review of Systems Constitutional: denies: fever, chills - Medication Medications: Active Medications Generic Name Dose Route Start Last Admin Trade Name Freq PRN Reason Stop Dose Admin Acetaminophen 650 mg 08/29/20 16:11 08/30/20 13:19 Acetaminophen 325 Mg Tab PO 650 mg Q4H PRN Administration Headache/Fever/Mild Pain (1-3) Aspirin 81 mg 08/30/20 09:00 08/30/20 09:18 Aspirin 81 Mg Enteric Coated Tablet PO 81 mg DAILY MEREDITH Administration Clopidogrel Bisulfate 75 mg 08/30/20 09:00 08/30/20 09:18 Clopidogrel Bisulfate 75 Mg Tab PO 75 mg DAILY MEREDITH Administration Famotidine 20 mg 08/29/20 21:00 08/30/20 08:22 Famotidine 20 Mg Tab PO 20 mg BID MEREDITH Administration Insulin Human Lispro 0 units 08/29/20 16:11 08/30/20 11:13 Humalog 300 Units/3 Ml Vial SC 6 unit .MODERATE SLIDING SC PRN Administration Moderate Correctional Scale Isosorbide Mononitrate 30 mg 10/01/20 09:00 08/30/20 09:18 Isosorbide Mononitrate Er 30 Mg Tab PO 30 mg DAILY MEREDITH Administration Metoprolol Tartrate 50 mg 08/30/20 09:00 08/30/20 09:18 Metoprolol Tartrate 50 Mg Tab PO 50 mg BID MEREDITH Administration Montelukast Sodium 10 mg 08/30/20 09:00 08/30/20 09:18 Montelukast Sodium 10 Mg Tablet PO 10 mg DAILY MEREDITH Administration Tamsulosin HCl 0.4 mg 08/30/20 09:00 08/30/20 09:18 Tamsulosin Hcl 0.4 Mg Cap PO 0.4 mg DAILY MEREDITH Administration - Exam General Appearance: NAD, awake alert Eye: PERRL, anicteric sclera ENT: normocephalic atraumatic, no oropharyngeal lesions Neck: no JVD Heart: RRR, no murmur, no gallops, no rubs Respiratory: CTAB, no wheezes, no rales, no ronchi Gastrointestinal: soft, non-tender, non-distended, normal bowel sounds Extremities: no cyanosis, no clubbing, no edema Skin: normal turgor, no lesions, no rashes Neurological: cranial nerve grossly intact, normal sensation to touch, no focal deficits, no new deficit Hosp A/P - Plan This is 74 year old male who presented with syncope from hypoglycemia Syncope likely from Hypoglycemia - blood sugars improved. He has not required NPH thus far. Will monitor sliding scale requirement to see if he still needs this - last A1C 6.3 -cancel ECHO since COVID+ Hypertension - continue home medicines Hyponatremia - sodium 133, will monitor. Resumed his lasix CAD - continue aspirin and plavix Fever COVID+ - monitor, he is not requiring oxygen - chest x ray shows bilateral pleural effusions , resume lasix - check UA Dispo: attempted to d/c today, likely dc in am
[2020-08-30] MEDS: Furosemide 40 MG TAB PO SCH (20:38)
[2020-08-31] MEDS: Acetaminophen 325 MG TAB PO PRN ×2 (01:17→20:34)
[2020-08-31 04:58] LABS: #Lymphocytes 1.2 thou/uL (1.20-3.40); #Monocytes 0.5 thou/uL (0.11-0.59); #Neutrophils 4.5 thou/uL (1.40-6.50); %Basophils 0.5 % (0.0-1.0); %Eosinophils 0.4 % (0.0-10.0); %Lymphocytes 19.1 % (21.0-51.0); %Monocytes 7.7 % (0.0-10.0); %Neutrophils 72.3 % (42.0-75.0); Hemoglobin 16.5 g/dL (14.0-18.0); Mean Corpuscular HGB CONC 28.6 g/dL (32.0-36.0); Mean Corpuscular Hemoglobin 25.7 pg (27.0-31.0); Mean Corpuscular Volume 89.9 fL (78.0-98.0); Mean Platelet Volume 10.1 fL (7.4-10.4); Platelet Count 150 thou/uL (130-400); RBC Distribution Width 14.5 % (11.5-14.5); Red Blood Cell (RBC) Count 6.43 mill/uL (4.70-6.10); White Blood Cell (WBC) Count 6.3 thou/uL (4.8-10.8)
[2020-08-31 05:04] LABS: Anion Gap 19 mmol/L (10-20); BUN (Urea Nitrogen) 15 mg/dL (8.4-25.7); Calc. Creatinine Clearance 78 mL/min (70-130); Calcium 8.4 mg/dL (7.8-10.44); Carbon Dioxide 18 mmol/L (23-31); Chloride 98 mmol/L (98-107); Estimated GFR-MDRD 70; Glucose 196 mg/dL (83-110); Potassium 3.4 mmol/L (3.5-5.1); Sodium 132 mmol/L (136-145)
[2020-08-31] MEDS: HumaLOG 300 UNITS/3 ML VIAL SC PRN ×3 (06:01→20:24)
[2020-08-31] MEDS: Montelukast Sodium 10 mg Tablet PO SCH (08:51)
[2020-08-31] MEDS: Furosemide 40 MG TAB PO SCH (08:51)
[2020-08-31] MEDS: Clopidogrel Bisulfate 75 MG TAB PO SCH (08:51)
[2020-08-31] MEDS: Famotidine 20 MG TAB PO SCH ×2 (08:51→20:14)
[2020-08-31] MEDS: Aspirin 81 mg Enteric Coated Tablet PO SCH (08:51)
[2020-08-31] MEDS: Tamsulosin HCl 0.4 MG CAP PO SCH (08:51)
[2020-08-31] MEDS: Metoprolol Tartrate 50 MG TAB PO SCH ×2 (08:52→20:13)
[2020-08-31] MEDS ORDERED: Potassium Chloride 20 MEQ TAB PO SCH (09:15)
[2020-08-31] MEDS: Amlodipine 5 MG TAB PO SCH (10:13)
[2020-08-31] MEDS ORDERED: Azithromycin 500 MG in Sodium Chloride 0.9% 250 ML 250 ML IVPB SCH (11:00)
[2020-08-31] MEDS ORDERED: Dexamethasone 4 MG TAB PO SCH (11:00)
--- NOTE | 2020-08-31 11:11 | RAD ---
XR Chest 1 View Portable HISTORY: Worsening hypoxia,: Wei virus positive COMPARISON: Previous day FINDINGS: Changes of median sternotomy are again seen. The heart size normal. The aorta is tortuous. Interstitial and alveolar opacities are again seen. No pneumothoraces or large effusions are identified. IMPRESSION: Stable exam.
[2020-08-31 11:26] LABS: Actual Bicarbonate (HCO3a) 23.9 mEq/L (22-28); Base Excess (BEa) 1.8 mEq/L (-2.0 to +3.0); CO2 Tension 31.3 mmHg (35.0-45.0); Calcium, Ionized (arterial) 1.04 mmol/L (1.12-1.30); Potassium - ABG Lab 3.25 mmol/L (3.70-5.30)
[2020-08-31 11:32] LABS: O2 Tension (PaO2), arterial 42.7 mmHg (> 70.0)
[2020-08-31 11:33] LABS: ALV-art Gradient 203.375 mmHg (0-20); Puncture Site RRA
[2020-08-31] MEDS ORDERED: cefTRIAXone\\ROCEPHIN 1 GM in Sodium Chloride 0.9% 100 ML IVPB SCH (12:00)
--- NOTE | 2020-08-31 12:36 | DIS ---
DATE OF ADMISSION: 08/29/2020 DATE OF DISCHARGE: 08/30/2020 DISCHARGE DIAGNOSES: 1. Near syncopal episode, possibly secondary to hypoglycemia. 2. Hypertensive urgency. 3. Coronavirus disease positive. BRIEF HISTORY OF PRESENT ILLNESS: This is a 74-year-old male with past medical history of diabetes, who presented to the emergency room after he went to his clinic and was found to have a difficult time being aroused. The patient states that he was just lying his head down, but does not recall passing out. His blood sugar was noted to be 53. The patient states he took 55 units of insulin, but does not remember if he ate breakfast or lunch. He was given orange juice with persistently low glucose, and was given IV dextrose with improvement in his blood sugars, admitted to the hospital for further workup. HOSPITAL COURSE: Hypoglycemia: The patient's blood sugars were trended. His blood sugar improved to 86 the evening of 08/29. On 08/30, his blood sugar increased to 282, which came down to 163 with sliding scale insulin. The patient denies any dizziness or lightheadedness. He ambulated without any issues. He was discharged with Humalog sliding scale. The patient does not take metformin because it made him sick in the past. He should follow up with his PCP in a week with regard to resuming his NPH insulin. For now, he should consider holding it since his blood sugars are still well controlled with just sliding scale. Hypertensive urgency: The patient's blood pressure was 227/95. After his home meds were resumed, his blood pressure improved to 154/70. COVID positive: The patient spiked a temperature to 100.4. Chest x-ray showed small bilateral pleural effusions versus infiltrates. The patient remained on room air. He is advised to quarantine for 14 days. UA was ordered and pending. DISCHARGE PHYSICAL EXAMINATION: VITAL SIGNS: Temperature 98.9, heart rate 63, respiratory rate 20, O2 saturation 92% on room air, and blood pressure 154/70. GENERAL: The patient is alert, awake, and oriented x3. CVS: Regular rate and rhythm with no murmurs, rubs, or gallops. LUNGS: Clear to auscultation bilaterally. ABDOMEN: Positive bowel sounds, soft, nontender, nondistended. EXTREMITIES: No edema. LABORATORY DATA: CBC on 08/30: Normal. BMP on 08/30: Sodium 133. Rest of BMP normal. Glucose: 54, 69, 91, 86, 282, 163. LFTs on 08/30: AST 54, ALT 22. Troponin I: 0.050, 0.051, 0.049. Prolactin on 08/29: Normal. COVID PCR on 08/29: Positive. IMAGING: CT brain on 08/29: Shows chronic small-vessel ischemic changes. Chest x-ray on 08/29: No evidence of acute disease. Chest x-ray on 08/30: Persistent interstitial and alveolar opacity due to edema or infiltrate. Soft tissue ultrasound on 08/30: No lymphadenopathy. DISCHARGE CONDITION: Stable. ACTIVITY: As tolerated. DIET: Heart healthy diet and diabetic diet. DISCHARGE MEDICATIONS: Humalog sliding scale as follows: 1. 150 to 200: 2 units. 2. 201 to 250: 4 units. 3. 251 to 300: 6 units. 4. 301 to 350: 8 units. 5. Greater than 350: 10 units and call MD. All other home medications were resumed. Please refer to discharge worksheet. DISCHARGE INSTRUCTIONS: The patient should follow up with his PCP in a week with regard to when it is safe to resume the patient's NPH. He should check his blood sugars before each meal and before bedtime. Job ID: [id number] [facility]ITALGuillaume
--- NOTE | 2020-08-31 14:43 | PDOC.HOSPP ---
- Subjective Encounter Date: 08/31/20 Encounter Time: 10:00 Subjective: The patient desaturated this morning with oxygen saturation 70% on room air. He reports no significant cough, chest pressure or shortness of breath. ABG showed pH 7.5, pO2 of 42. THe patient is currently on high flow nasal cannula - Objective Vital Signs & Weight: Vital Signs (12 hours) Temp Pulse Resp BP BP Pulse Ox 08/31/20 11:37 94 L 08/31/20 11:33 97.7 F 80 36 H 160/84 H 96 08/31/20 11:20 89 L 08/31/20 10:13 97 184/78 H 08/31/20 09:15 99.1 F 97 18 184/78 H 90 L 08/31/20 06:00 181/81 H 08/31/20 04:25 98.2 F 81 18 189/89 H 96 Weight Admit Weight 234 lb 8 oz Weight 234 lb 8 oz I&O: 08/30/20 08/31/20 09/01/20 06:59 06:59 06:59 Intake Total 240 Output Total 550 Balance 240 -550 Result Diagrams: 08/31/20 04:26 08/31/20 04:26 Additional Labs: Accuchecks 08/31/20 08/31/20 08/30/20 11:33 05:49 20:45 POC Glucose 210 H 210 H 209 H 08/30/20 17:37 POC Glucose 163 H Hospitalist ROS - Review of Systems Constitutional: denies: fever, chills - Medication Medications: Active Medications Generic Name Dose Route Start Last Admin Trade Name Georgeq PRN Reason Stop Dose Admin Acetaminophen 650 mg 08/29/20 16:11 08/31/20 01:17 Acetaminophen 325 Mg Tab PO 650 mg Q4H PRN Administration Headache/Fever/Mild Pain (1-3) Amlodipine Besylate 5 mg 08/31/20 09:00 08/31/20 10:13 Amlodipine 5 Mg Tab PO 5 mg DAILY MEREDITH Administration Aspirin 81 mg 08/30/20 09:00 08/31/20 08:51 Aspirin 81 Mg Enteric Coated Tablet PO 81 mg DAILY MEREDITH Administration Clopidogrel Bisulfate 75 mg 08/30/20 09:00 08/31/20 08:51 Clopidogrel Bisulfate 75 Mg Tab PO 75 mg DAILY MEREDITH Administration Famotidine 20 mg 08/29/20 21:00 08/31/20 08:51 Famotidine 20 Mg Tab PO 20 mg BID MEREDITH Administration Insulin Human Lispro 0 units 08/29/20 16:11 08/31/20 12:51 Humalog 300 Units/3 Ml Vial SC 4 unit .MODERATE SLIDING SC PRN Administration Moderate Correctional Scale Insulin Human Lispro 0 units 08/29/20 16:11 08/30/20 20:42 Humalog 300 Units/3 Ml Vial SC 2 unit .BEDTIME SLIDING SC PRN Administration Bedtime Correctional Scale Isosorbide Mononitrate 30 mg 08/30/20 09:00 08/31/20 08:52 Isosorbide Mononitrate Er 30 Mg Tab PO 30 mg DAILY MEREDITH Administration Metoprolol Tartrate 50 mg 08/30/20 09:00 08/31/20 08:52 Metoprolol Tartrate 50 Mg Tab PO 50 mg BID MEREDITH Administration Montelukast Sodium 10 mg 08/30/20 09:00 08/31/20 08:51 Montelukast Sodium 10 Mg Tablet PO 10 mg DAILY MEREDITH Administration Tamsulosin HCl 0.4 mg 08/30/20 09:00 08/31/20 08:51 Tamsulosin Hcl 0.4 Mg Cap PO 0.4 mg DAILY MEREDITH Administration - Exam General Appearance: NAD, awake alert General - other findings: obese Eye: PERRL, anicteric sclera ENT: normocephalic atraumatic, no oropharyngeal lesions Neck: supple, symmetric, no JVD, no thyromegaly Heart: RRR, no murmur, no gallops, no rubs Respiratory: CTAB, no wheezes, no rales, no ronchi Gastrointestinal: soft, non-tender, non-distended, normal bowel sounds Extremities: no cyanosis, no clubbing, no edema Skin: normal turgor, no lesions, no rashes Neurological: cranial nerve grossly intact, normal sensation to touch, no focal deficits, no new deficit Musculoskeletal: normal tone, normal strength, no muscle wasting Hosp A/P - Plan This is 74 year old male who presented with syncope from hypoglycemia. He espiked fever 10, turned out to be COVID+. Now he is hypoxia Acute hypoxic respiratory failure likely from COVID pneumonia - chest x ray shows bilateral and interstitial alveolar opacities. Received home lasix 40 mg TID, will hold for now due to hypokalemia/hyponatremia. He is COVID+ - will start dexamethasone - started ceftriaxone and azithromycin . Procal negative, but will continue antibiotics for now pending improvement - consider plasma transfusion Syncope likely from Hypoglycemia - blood sugars improved. Now 160-200. He was taking NPH [address] home. [address] brain negative - will continue sliding scale insulin and consider restarting long acting insulin gradualy - last A1C 6.3 -troponin indeterminate, cancel ECHO since COVID+ , consider outpatient ECHO Hypertension - continue imdur, metoprolol Hyponatremia - sodium 132, worsening. Will hold lasix CAD - continue aspirin and plavix Fever - resolved - likely from COVID. UA ordered. Chest x ray shows bilateral pneumonia Dispo: attempted to d/c today, likely dc in am
[2020-08-31 15:27] LABS: Bacteria/HPF 2+ HPF (None Seen); Bilirubin Negative (Negative); Blood, Urine 2+ (Negative); Clarity Turbid (Clear); Glucose, Urine (Dipstick) 50 mg/dL (Negative); Ketone, Urine Trace mg/dL (Negative); Leukocyte 500 Leu/uL (Negative); Nitrite Negative (Negative); Protein, Urine (Dipstick) 200 mg/dL (Neg-Trace); RBC/HPF 0-3 HPF (0-3); Specific Gravity, Urine 1.017 (1.002-1.036); Urobilinogen Normal mg/dL (Less than 2)
[2020-08-31] MEDS ORDERED: Amlodipine 5 MG TAB PO SCH (19:15)
--- NOTE | 2020-08-31 19:44 | PDOC.EVN ---
Event Note - Event Note Event Note: Was told by nurse patient pulled out his IV and did not get IV antibiotics yet. Will order oral antibiotics for now
[2020-08-31] MEDS ORDERED: Azithromycin 250 MG TAB PO SCH (20:00)
[2020-08-31] MEDS: Cefdinir 300 MG CAP PO SCH (20:13)
[2020-09-01] MEDS: cefTRIAXone\\ROCEPHIN 1 GM in Sodium Chloride 0.9% 100 ML IVPB SCH ×2 (01:21→22:11)
[2020-09-01 05:11] LABS: #Monocytes 0.6 thou/uL (0.11-0.59); #Neutrophils 4.9 thou/uL (1.40-6.50); %Basophils 0.2 % (0.0-1.0); %Eosinophils 0.5 % (0.0-10.0); %Lymphocytes 15.6 % (21.0-51.0); %Monocytes 8.9 % (0.0-10.0); %Neutrophils 74.7 % (42.0-75.0); Hemoglobin 16.8 g/dL (14.0-18.0); Mean Corpuscular HGB CONC 32.1 g/dL (32.0-36.0); Mean Corpuscular Hemoglobin 27.8 pg (27.0-31.0); Mean Corpuscular Volume 86.8 fL (78.0-98.0); Mean Platelet Volume 9.1 fL (7.4-10.4); Platelet Count 248 thou/uL (130-400); RBC Distribution Width 14.2 % (11.5-14.5); Red Blood Cell (RBC) Count 6.03 mill/uL (4.70-6.10); White Blood Cell (WBC) Count 6.5 thou/uL (4.8-10.8)
[2020-09-01 05:38] LABS: BUN (Urea Nitrogen) 22 mg/dL (8.4-25.7); Calc. Creatinine Clearance 70 mL/min (70-130); Calcium 8.9 mg/dL (7.8-10.44); Carbon Dioxide 19 mmol/L (23-31); Chloride 99 mmol/L (98-107); Estimated GFR-MDRD 61; Glucose 274 mg/dL (83-110); Potassium 3.9 mmol/L (3.5-5.1); Sodium 135 mmol/L (136-145)
[2020-09-01 05:41] LABS: Anion Gap 21 mmol/L (10-20)
[2020-09-01] MEDS: Amlodipine 5 MG TAB PO SCH (06:05)
[2020-09-01] MEDS: HumaLOG 300 UNITS/3 ML VIAL SC PRN ×4 (06:06→22:12)
[2020-09-01] MEDS: Acetaminophen 325 MG TAB PO PRN ×3 (06:28→18:26)
[2020-09-01] MEDS: Aspirin 81 mg Enteric Coated Tablet PO SCH (08:07)
[2020-09-01] MEDS: Montelukast Sodium 10 mg Tablet PO SCH (08:07)
[2020-09-01] MEDS: Cefdinir 300 MG CAP PO SCH (08:07)
[2020-09-01] MEDS: Clopidogrel Bisulfate 75 MG TAB PO SCH (08:07)
[2020-09-01] MEDS: Famotidine 20 MG TAB PO SCH ×2 (08:07→22:09)
[2020-09-01] MEDS: Metoprolol Tartrate 50 MG TAB PO SCH ×2 (08:07→22:10)
[2020-09-01] MEDS: Tamsulosin HCl 0.4 MG CAP PO SCH (08:07)
[2020-09-01] MEDS ORDERED: Azithromycin 250 MG TAB PO SCH (09:00)
[2020-09-01] MEDS ORDERED: Dexamethasone 4 MG TAB PO SCH (09:00)
--- NOTE | 2020-09-01 14:57 | PDOC.HOSPP ---
- Subjective Encounter Date: 09/01/20 Encounter Time: 09:50 Subjective: Patient is confused. Also has hard of hearing. Low-grade temp and his blood pressure is little high. He is satting 93% with a high flow oxygen. Discussed with RN. - Objective Vital Signs & Weight: Vital Signs (12 hours) Temp Pulse Pulse Resp BP BP BP 09/01/20 12:22 99.4 F 77 33 H 166/84 H 09/01/20 11:44 99.3 F 81 32 H 136/75 09/01/20 09:30 149/72 H 09/01/20 08:15 09/01/20 08:05 97.9 F 86 20 190/98 H 09/01/20 06:05 191/79 H 09/01/20 05:12 98.2 F 82 22 H 193/91 H Pulse Ox 09/01/20 12:22 93 L 09/01/20 11:44 92 L 09/01/20 09:30 09/01/20 08:15 94 L 09/01/20 08:05 09/01/20 06:05 09/01/20 05:12 91 L Weight Admit Weight 234 lb 8 oz Weight 234 lb 8 oz I&O: 08/31/20 09/01/20 09/02/20 06:59 06:59 06:59 Intake Total 1160 Output Total 550 Balance -550 1160 Result Diagrams: 09/01/20 05:01 09/01/20 05:01 Additional Labs: Accuchecks 09/01/20 08/31/20 08/31/20 12:01 20:27 17:38 POC Glucose 281 H 246 H 217 H Hospitalist ROS - Medication Medications: Active Medications Generic Name Dose Route Start Last Admin Trade Name Freq PRN Reason Stop Dose Admin Acetaminophen 650 mg 08/29/20 16:11 09/01/20 12:09 Acetaminophen 325 Mg Tab PO 650 mg Q4H PRN Administration Headache/Fever/Mild Pain (1-3) Amlodipine Besylate 5 mg 08/31/20 09:00 09/01/20 06:05 Amlodipine 5 Mg Tab PO 5 mg DAILY MEREDITH Administration Aspirin 81 mg 08/30/20 09:00 09/01/20 08:07 Aspirin 81 Mg Enteric Coated Tablet PO 81 mg DAILY MEREDITH Administration Clopidogrel Bisulfate 75 mg 08/30/20 09:00 09/01/20 08:07 Clopidogrel Bisulfate 75 Mg Tab PO 75 mg DAILY MEREDITH Administration Famotidine 20 mg 08/29/20 21:00 09/01/20 08:07 Famotidine 20 Mg Tab PO 20 mg BID MEREDITH Administration Ceftriaxone Sodium 1 gm/ 100 mls @ 200 mls/hr 08/31/20 21:00 09/01/20 01:21 Sodium Chloride IVPB Not Given 2100 [facility] Insulin Human Lispro 0 units 08/29/20 16:11 09/01/20 12:10 Humalog 300 Units/3 Ml Vial SC 6 unit .MODERATE SLIDING SC PRN Administration Moderate Correctional Scale Insulin Human Lispro 0 units 08/29/20 16:11 08/31/20 20:24 Humalog 300 Units/3 Ml Vial SC 2 unit .BEDTIME SLIDING SC PRN Administration Bedtime Correctional Scale Isosorbide Mononitrate 30 mg 08/30/20 09:00 09/01/20 08:07 Isosorbide Mononitrate Er 30 Mg Tab PO 30 mg DAILY MEREDITH Administration Metoprolol Tartrate 50 mg 08/30/20 09:00 09/01/20 08:07 Metoprolol Tartrate 50 Mg Tab PO 50 mg BID MEREDITH Administration Montelukast Sodium 10 mg 08/30/20 09:00 09/01/20 08:07 Montelukast Sodium 10 Mg Tablet PO 10 mg DAILY MEREDITH Administration Tamsulosin HCl 0.4 mg 08/30/20 09:00 09/01/20 08:07 Tamsulosin Hcl 0.4 Mg Cap PO 0.4 mg DAILY MEREDITH Administration - Exam General Appearance: NAD, awake alert Eye: PERRL ENT: normocephalic atraumatic Neck: supple Heart: RRR Respiratory: CTAB, normal chest expansion Gastrointestinal: soft, normal bowel sounds Extremities: no edema Neurological: no focal deficits Psychiatric: A&O x 3 Hosp A/P - Plan Acute hypoxic respiratory failure likely from COVID pneumonia - chest x ray shows bilateral and interstitial alveolar opacities. Received home lasix 40 mg TID, will hold for now due to hypokalemia/hyponatremia. He is COVID+ -IV ceftriaxone and Zithromax. Since patient is quite confused and very low p.o. intake will put him on IV steroid once he is clinically stable then will switch him back to Decadron. -Ordered plasma infusion today. Metabolic encephalopathy -Acute stress of pneumonia and urinary tract infection -Correct underlying cause Syncope likely from Hypoglycemia - blood sugars improved. Now 160-200. He was taking NPH [address] home. [address] brain negative - will continue sliding scale insulin and consider restarting long acting insulin gradualy - last A1C 6.3 -troponin indeterminate, cancel ECHO since COVID+ , consider outpatient ECHO Hypertension - continue imdur, metoprolol Hyponatremia - sodium 132, worsening. Will hold lasix CAD - continue aspirin and plavix UTI -Already on antibiotic -Urine culture ordered to follow the result. hard of hearing
[2020-09-01] MEDS ORDERED: Sodium Chloride 0.9% 1,000 ML IV SCH (15:00)
[2020-09-01] MEDS ORDERED: cefTRIAXone\\ROCEPHIN 1 GM VIAL ONE (21:27)
[2020-09-01] MEDS: methylPREDNISolone Sod Succ 40 MG VIAL IVP SCH (22:11)
[2020-09-02] MEDS: Labetalol HCl 100 MG/20 ML VIAL SLOW IVP PRN ×5 (00:14→22:37)
--- NOTE | 2020-09-02 03:22 | PDOC.EVN ---
Event Note - Event Note Event Note: Patient continually pulling high flow oxygen off, says he does not like the way it smells or feels. O2 sats going to 86-87%. ABG ordered at this time.
[2020-09-02] MEDS: HumaLOG 300 UNITS/3 ML VIAL SC PRN ×4 (05:34→20:08)
[2020-09-02] MEDS: Montelukast Sodium 10 mg Tablet PO SCH (07:21)
[2020-09-02] MEDS: Clopidogrel Bisulfate 75 MG TAB PO SCH (07:21)
[2020-09-02] MEDS: methylPREDNISolone Sod Succ 40 MG VIAL IVP SCH (07:21)
[2020-09-02] MEDS: Amlodipine 5 MG TAB PO SCH (07:21)
[2020-09-02] MEDS: Famotidine 20 MG TAB PO SCH ×2 (07:21→19:47)
[2020-09-02] MEDS: Tamsulosin HCl 0.4 MG CAP PO SCH (07:22)
[2020-09-02] MEDS: Metoprolol Tartrate 50 MG TAB PO SCH ×2 (07:22→19:47)
[2020-09-02] MEDS: Aspirin 81 mg Enteric Coated Tablet PO SCH (07:22)
[2020-09-02] MEDS: Enoxaparin Sodium 80 MG/0.8 ML SYRINGE SC SCH ×2 (09:34→19:47)
--- NOTE | 2020-09-02 10:24 | CON ---
DATE OF CONSULTATION: 09/02/2020 REASON FOR CONSULTATION: Acute respiratory failure related to COVID-19 infection. CONSULTING PHYSICIAN: Dr. Stein from the [facility]. HISTORY OF PRESENT ILLNESS: The patient was initially admitted to the [facility] on 08/29/2020 with altered mental status. Further workup demonstrated COVID-19 infection. He has become progressively hypoxic. He was transferred to the CCU for further care last night. He is now on high-flow oxygen. PAST MEDICAL HISTORY: 1. Hypertension. 2. Hyperlipidemia. 3. Chronic back pain. 4. Prostatic hypertrophy. 5. Diabetes mellitus. PAST SURGICAL HISTORY: 1. Coronary artery bypass grafting surgery. 2. Total knee replacement. 3. Left femoral endarterectomy. FAMILY MEDICAL HISTORY: Unremarkable. SOCIAL HISTORY: He smokes. Does not consume alcohol. Does not use illicit drugs. MEDICATIONS PRIOR TO ADMISSION: 1. Insulin. 2. Doxycycline. ALLERGIES: NONE. CURRENT INPATIENT MEDICATIONS: 1. Norvasc. 2. Ecotrin. 3. Azithromycin. 4. Ceftriaxone. 5. Plavix. 6. Pepcid. 7. Glucagon. 8. Humalog insulin. 9. Imdur. 10. Solu-Medrol. 11. Lopressor. 12. Singulair. 13. Flomax. REVIEW OF SYSTEMS: Twelve-point review of systems otherwise negative. PHYSICAL EXAMINATION: VITAL SIGNS: Temperature 97.4, pulse 88, blood pressure 205/96, O2 saturation 92%. GENERAL: The patient is awake, alert. He is using a remote control. He is on high-flow oxygen. HEENT: Unremarkable. NECK: No adenopathy, JVD. LUNGS: Diffuse crackles bilaterally. CARDIAC: S1 and S2, regular. ABDOMEN: Soft and nontender. EXTREMITIES: No clubbing, cyanosis, or edema. LABORATORY DATA: White blood cell count 6.5, hematocrit 52.3, and platelet count 248. Sodium 135, potassium 3.9, chloride 99, CO2 of 19, BUN 22, creatinine 1.4, glucose 274. Blood sugars are running in the 300s. X-ray shows bilateral infiltrative changes. ASSESSMENT: 1. COVID-19 pneumonia. 2. Acute hypoxic respiratory failure. PLAN: 1. The patient needs to be placed on anticoagulation. His steroid dose needs to be increased. We need to follow antiinflammatory markers. He should receive convalescent plasma - it looks like he did get that yesterday. 2. Prognosis is poor. Job ID: [id number]
[2020-09-02] MEDS: Azithromycin 500 MG in Sodium Chloride 0.9% 250 ML 250 ML IVPB SCH (12:01)
[2020-09-02] MEDS: Hydrocortisone Sod Succ/PF 100 mg/2 ml Vial IVP SCH ×3 (12:02→22:40)
[2020-09-02] MEDS: Acetaminophen 325 MG TAB PO PRN ×2 (12:54→21:39)
--- NOTE | 2020-09-02 14:04 | PDOC.HOSPP ---
- Subjective Encounter Date: 09/02/20 Encounter Time: 11:15 Subjective: Patient pulled his oxygen supplement this morning's causing low saturation and rapid response initiation. Currently he is on BiPAP. Appreciate the help from Dr. Arndt. - Objective Vital Signs & Weight: Vital Signs (12 hours) Temp Pulse Pulse Resp Resp BP BP 09/02/20 11:55 88 189/91 H 09/02/20 11:00 97.8 F 09/02/20 08:00 09/02/20 07:21 88 203/100 H 09/02/20 07:00 98.7 F 09/02/20 05:00 97.4 F L 09/02/20 04:49 88 186/108 H 09/02/20 04:31 88 30 H 09/02/20 04:29 94 40 H 09/02/20 04:15 09/02/20 04:10 84 33 H 211/93 H Pulse Ox Pulse Ox Pulse Ox Pulse Ox 09/02/20 11:55 09/02/20 11:00 09/02/20 08:00 96 09/02/20 07:21 09/02/20 07:00 09/02/20 05:00 09/02/20 04:49 09/02/20 04:31 96 09/02/20 04:29 94 L 09/02/20 04:15 95 09/02/20 04:10 84 L 90 L 84 L Weight Admit Weight 234 lb 8 oz Weight 234 lb 8 oz Most Recent Monitor Data Heart Rate from ECG 84 NIBP 163/98 NIBP BP-Mean 119 Respiration from ECG 21 SpO2 97 I&O: 09/01/20 09/02/20 09/03/20 06:59 06:59 06:59 Intake Total 1160 350 360 Output Total 400 450 Balance 1160 -50 -90 Result Diagrams: 09/01/20 05:01 09/01/20 05:01 Additional Labs: Accuchecks 09/02/20 09/02/20 09/01/20 07:41 04:58 21:56 POC Glucose 324 H 315 H 325 H 09/01/20 17:12 POC Glucose 288 H Hospitalist ROS - Medication Medications: Active Medications Generic Name Dose Route Start Last Admin Trade Name Freq PRN Reason Stop Dose Admin Acetaminophen 650 mg 08/29/20 16:11 09/02/20 12:54 Acetaminophen 325 Mg Tab PO 650 mg Q4H PRN Administration Headache/Fever/Mild Pain (1-3) Amlodipine Besylate 5 mg 08/31/20 09:00 09/02/20 07:21 Amlodipine 5 Mg Tab PO 5 mg DAILY MEREDITH Administration Aspirin 81 mg 08/30/20 09:00 09/02/20 07:22 Aspirin 81 Mg Enteric Coated Tablet PO 81 mg DAILY MEREDITH Administration Clopidogrel Bisulfate 75 mg 08/30/20 09:00 09/02/20 07:21 Clopidogrel Bisulfate 75 Mg Tab PO 75 mg DAILY MEREDITH Administration Enoxaparin Sodium 70 mg 09/02/20 09:00 09/02/20 09:34 Enoxaparin Sodium 80 Mg/0.8 Ml Syringe SC 70 mg 09,2099 MEREDITH Administration Famotidine 20 mg 08/29/20 21:00 09/02/20 07:21 Famotidine 20 Mg Tab PO 20 mg BID MEREDITH Administration Hydrocortisone Sodium Succinate 100 mg 09/02/20 12:00 09/02/20 12:02 Hydrocortisone Sod Succ/Pf 100 Mg/2 Ml Vial IVP 100 mg Q6HR MEREDITH Administration Ceftriaxone Sodium 1 gm/ 100 mls @ 200 mls/hr 08/31/20 21:00 09/01/20 22:11 Sodium Chloride IVPB 100 mls 2100 MEREDITH Administration Azithromycin 500 mg/ Sodium 250 mls @ 250 mls/hr 09/02/20 11:00 09/02/20 12:01 Chloride IVPB 250 mls Q24HR MEREDITH Administration Insulin Human Lispro 0 units 08/29/20 16:11 09/02/20 11:55 Humalog 300 Units/3 Ml Vial SC 6 unit .MODERATE SLIDING SC PRN Administration Moderate Correctional Scale Insulin Human Lispro 0 units 08/29/20 16:11 09/01/20 22:12 Humalog 300 Units/3 Ml Vial SC 4 unit .BEDTIME SLIDING SC PRN Administration Bedtime Correctional Scale Isosorbide Mononitrate 30 mg 08/30/20 09:00 09/02/20 07:22 Isosorbide Mononitrate Er 30 Mg Tab PO 30 mg DAILY MEREDITH Administration Labetalol HCl 20 mg 08/31/20 19:08 09/02/20 11:55 Labetalol Hcl 100 Mg/20 Ml Vial SLOW IVP 20 mg Q4H PRN Administration SBP Greater Than 180 Metoprolol Tartrate 50 mg 08/30/20 09:00 09/02/20 07:22 Metoprolol Tartrate 50 Mg Tab PO 50 mg BID MEREDITH Administration Montelukast Sodium 10 mg 08/30/20 09:00 09/02/20 07:21 Montelukast Sodium 10 Mg Tablet PO 10 mg DAILY MEREDITH Administration Tamsulosin HCl 0.4 mg 08/30/20 09:00 09/02/20 07:22 Tamsulosin Hcl 0.4 Mg Cap PO 0.4 mg DAILY MEREDITH Administration - Exam General - other findings: On BiPAP and resting Hosp A/P - Plan Acute hypoxic respiratory failure likely from COVID pneumonia - chest x ray shows bilateral and interstitial alveolar opacities. Received home lasix 40 mg TID, will hold for now due to hypokalemia/hyponatremia. He is COVID+ -IV ceftriaxone and Zithromax. Since patient is quite confused and very low p.o. intake will put him on IV steroid once he is clinically stable then will switch him back to Decadron. -Ordered plasma infusion today. Metabolic encephalopathy -Acute stress of pneumonia and urinary tract infection -Correct underlying cause Syncope likely from Hypoglycemia - blood sugars improved. Now 160-200. He was taking NPH [address] home. [address] brain negative - will continue sliding scale insulin and consider restarting long acting insuli n gradualy - last A1C 6.3 -troponin indeterminate, cancel ECHO since COVID+ , consider outpatient ECHO Hypertension - continue imdur, metoprolol Hyponatremia - sodium 132, worsening. Will hold lasix CAD - continue aspirin and plavix UTI -Already on antibiotic -Urine culture ordered to follow the result.>>>>>>>>>>>>>>>>> culture grew next damaris/contaminant hard of hearing 4th Type 2 diabetes Hyperglycemia, steroid-induced pre-existing diabetes --- Schedule low-dose insulin in addition to sliding scale -Follow-up on A1c Acute hypoxic respiratory failure; acute desats due to pulling his oxygen supplement. Metabolic encephalopathy probably due to COVID pneumonia and/or steroid-induced -Currently he is on BiPAP. -His IV steroid has been discontinued. Urine culture mixed skin damaris.
[2020-09-02] MEDS: cefTRIAXone\\ROCEPHIN 1 GM in Sodium Chloride 0.9% 100 ML IVPB SCH (19:46)
[2020-09-02] MEDS: Insulin Glargine 5 UNITS in Pre-Filled Syringe 1 EACH SC SCH (19:47)
[2020-09-03] MEDS: Hydrocortisone Sod Succ/PF 100 mg/2 ml Vial IVP SCH ×4 (05:13→23:57)
[2020-09-03] MEDS: Labetalol HCl 100 MG/20 ML VIAL SLOW IVP PRN (05:13)
[2020-09-03] MEDS: HumaLOG 300 UNITS/3 ML VIAL SC PRN ×4 (06:01→22:11)
[2020-09-03 06:45] LABS: Hemoglobin 15.9 g/dL (14.0-18.0); Mean Corpuscular HGB CONC 31.8 g/dL (32.0-36.0); Mean Corpuscular Hemoglobin 27.5 pg (27.0-31.0); Mean Corpuscular Volume 86.3 fL (78.0-98.0); Mean Platelet Volume 9.2 fL (7.4-10.4); Platelet Count 282 thou/uL (130-400); RBC Distribution Width 14.2 % (11.5-14.5); Red Blood Cell (RBC) Count 5.78 mill/uL (4.70-6.10); White Blood Cell (WBC) Count 16.3 thou/uL (4.8-10.8)
[2020-09-03 06:57] LABS: Anion Gap 19 mmol/L (10-20); BUN (Urea Nitrogen) 22 mg/dL (8.4-25.7); Calc. Creatinine Clearance 73 mL/min (70-130); Calcium 8.3 mg/dL (7.8-10.44); Carbon Dioxide 23 mmol/L (23-31); Chloride 103 mmol/L (98-107); Estimated GFR-MDRD 65; Glucose 380 mg/dL (83-110); Potassium 3.9 mmol/L (3.5-5.1); Sodium 141 mmol/L (136-145)
[2020-09-03 07:01] LABS: Band 4 % (5-11); Lymphocytes 4 % (21-51); MDiff Complete? YES; Monocytes 4 % (0-10); Neutrophil 87 % (42-75); Platelet Morphology Comment Appears Adequate; RBC Morphology Normal; Reactive Lymphocytes 1 % (0-10)
[2020-09-03] MEDS: Ascorbic Acid 500 mg Chewable Tablet PO SCH (08:28)
[2020-09-03] MEDS: Clopidogrel Bisulfate 75 MG TAB PO SCH (08:28)
[2020-09-03] MEDS: Montelukast Sodium 10 mg Tablet PO SCH (08:29)
[2020-09-03] MEDS: Famotidine 20 MG TAB PO SCH ×2 (08:29→21:40)
[2020-09-03] MEDS: Amlodipine 5 MG TAB PO SCH (08:29)
[2020-09-03] MEDS: Cholecalciferol (Vitamin D3) 400 UNITS TAB PO SCH (08:29)
[2020-09-03] MEDS: Aspirin 81 mg Enteric Coated Tablet PO SCH (08:29)
[2020-09-03] MEDS: Metoprolol Tartrate 50 MG TAB PO SCH ×2 (08:29→21:41)
[2020-09-03] MEDS: Tamsulosin HCl 0.4 MG CAP PO SCH (08:29)
[2020-09-03] MEDS: Enoxaparin Sodium 80 MG/0.8 ML SYRINGE SC SCH ×2 (08:29→21:40)
[2020-09-03] MEDS: Zinc Sulfate 220 MG CAP PO SCH (08:29)
[2020-09-03] MEDS: Insulin Glargine 5 UNITS in Pre-Filled Syringe 1 EACH SC SCH ×2 (08:49→21:41)
[2020-09-03] MEDS ORDERED: niCARdipine 40MG In NaCl 40 MG/200 ML BAG IVPB SCH (09:00)
[2020-09-03] MEDS: niCARdipine 50 MG in Sodium Chloride 0.9% 250 ML 230 ML IV SCH ×2 (09:26→19:57)
--- NOTE | 2020-09-03 09:38 | PRG ---
DATE OF SERVICE: 09/03/2020 TIME SPENT: 35 minutes of critical care time. SUBJECTIVE: The patient remains on BiPAP. He is somewhat confused. His blood pressure is also out of control. OBJECTIVE: VITAL SIGNS: On exam, temperature 98.3, pulse 90, blood pressure 199/97, and O2 saturation 95%. Total intake 1538, output 1625. HEENT: Unremarkable. NECK: No JVD. LUNGS: Crackles bilaterally. CARDIAC: S1 and S2. Regular. ABDOMEN: Soft. EXTREMITIES: No edema. LABORATORY DATA: His ferritin level is 979. C-reactive protein 5.3. Sodium 141, potassium 3.9, chloride 103, CO2 of 23, BUN 22, creatinine 1.3, and glucose 380. White blood cell count 16.3, hematocrit 49.9, and platelet count 282. ASSESSMENT: 1. COVID-19 pneumonia. 2. Acute hypoxic respiratory failure, requiring noninvasive mechanical ventilation. 3. Hypertension, out of control. 4. Diabetes mellitus. PLAN: 1. Continue BiPAP. 2. Continue hydrocortisone. 3. Continue anticoagulation. 4. I suspect he will get worse and eventually require intubation. 5. Add nicardipine for hypertension out of control. 6. Monitor anti-inflammatory markers. Job ID: [id number]
[2020-09-03] MEDS: Azithromycin 500 MG in Sodium Chloride 0.9% 250 ML 250 ML IVPB SCH (11:19)
--- NOTE | 2020-09-03 14:49 | PDOC.HOSPP ---
- Subjective Encounter Date: 09/03/20 Encounter Time: 09:20 Subjective: Patient is on BiPAP currently resting. He is being agitated. His blood pressure is elevated. On Cardene drip. Inflammatory markers are still on high end. Discussed with RN. - Objective Vital Signs & Weight: Vital Signs (12 hours) Temp Pulse Resp BP Pulse Ox 09/03/20 14:34 98 36 H 100 09/03/20 12:00 98.1 F 09/03/20 10:53 80 34 H 91 L 09/03/20 08:29 99 195/115 H 09/03/20 08:00 98.4 F 09/03/20 07:27 96 09/03/20 06:39 95 09/03/20 05:13 99 195/115 H 09/03/20 04:54 88 31 H 92 L 09/03/20 04:00 98.3 F Weight Admit Weight 234 lb 8 oz Weight 234 lb 8 oz Most Recent Monitor Data Heart Rate from ECG 87 NIBP 141/85 NIBP BP-Mean 103 Respiration from ECG 31 SpO2 93 I&O: 09/02/20 09/03/20 09/04/20 06:59 06:59 06:59 Intake Total 350 1538 300 Output Total 400 1625 850 Balance -50 -87 -550 Result Diagrams: 09/03/20 06:25 09/03/20 06:25 Additional Labs: Accuchecks 09/03/20 09/03/20 09/02/20 11:42 05:27 19:59 POC Glucose 382 H 371 H 374 H 09/02/20 09/02/20 17:31 11:37 POC Glucose 370 H 362 H Hospitalist ROS - Medication Medications: Active Medications Generic Name Dose Route Start Last Admin Trade Name Freq PRN Reason Stop Dose Admin Acetaminophen 650 mg 08/29/20 16:11 09/02/20 21:39 Acetaminophen 325 Mg Tab PO 650 mg Q4H PRN Administration Headache/Fever/Mild Pain (1-3) Amlodipine Besylate 5 mg 08/31/20 09:00 09/03/20 08:29 Amlodipine 5 Mg Tab PO 5 mg DAILY MEREDITH Administration Ascorbic Acid 1,000 mg 09/03/20 09:00 09/03/20 08:28 Ascorbic Acid 500 Mg Chewable Tablet PO 1,000 mg DAILY MEREDITH Administration Aspirin 81 mg 08/30/20 09:00 09/03/20 08:29 Aspirin 81 Mg Enteric Coated Tablet PO 81 mg DAILY MEREDITH Administration Cholecalciferol 400 units 09/03/20 09:00 09/03/20 08:29 Cholecalciferol (Vitamin D3) 400 Units Tab PO 400 units DAILY MEREDITH Administration Clopidogrel Bisulfate 75 mg 08/30/20 09:00 09/03/20 08:28 Clopidogrel Bisulfate 75 Mg Tab PO 75 mg DAILY MEREDITH Administration Enoxaparin Sodium 70 mg 09/02/20 09:00 09/03/20 08:29 Enoxaparin Sodium 80 Mg/0.8 Ml Syringe SC 70 mg 0900,2100 MEREDITH Administration Famotidine 20 mg 08/29/20 21:00 09/03/20 08:29 Famotidine 20 Mg Tab PO 20 mg BID MEREDITH Administration Hydrocortisone Sodium Succinate 100 mg 09/02/20 12:00 09/03/20 12:09 Hydrocortisone Sod Succ/Pf 100 Mg/2 Ml Vial IVP 100 mg Q6HR MEREDITH Administration Ceftriaxone Sodium 1 gm/ 100 mls @ 200 mls/hr 08/31/20 21:00 09/02/20 19:46 Sodium Chloride IVPB 100 mls 2100 MEREDITH Administration Azithromycin 500 mg/ Sodium 250 mls @ 250 mls/hr 09/02/20 11:00 09/03/20 11:19 Chloride IVPB 250 mls Q24HR MEREDITH Administration Insulin Glargine 5 units/ 0.05 mls @ 0 mls/hr 09/02/20 21:00 09/03/20 08:49 Miscellaneous Medication SC 0.05 mls BID MEREDITH Administration Nicardipine HCl 50 mg/ Sodium 250 mls @ 0 mls/hr 09/03/20 09:15 09/03/20 09:26 Chloride IV 250 mls INF MEREDITH Administration Protocol As Directed Insulin Human Lispro 0 units 08/29/20 16:11 09/03/20 11:52 Humalog 300 Units/3 Ml Vial SC 10 unit .MODERATE SLIDING SC PRN Administration Moderate Correctional Scale Insulin Human Lispro 0 units 08/29/20 16:11 09/02/20 20:08 Humalog 300 Units/3 Ml Vial SC 5 unit .BEDTIME SLIDING SC PRN Administration Bedtime Correctional Scale Isosorbide Mononitrate 30 mg 08/30/20 09:00 09/03/20 08:29 Isosorbide Mononitrate Er 30 Mg Tab PO 30 mg DAILY MEREDITH Administration Labetalol HCl 20 mg 08/31/20 19:08 09/03/20 05:13 Labetalol Hcl 100 Mg/20 Ml Vial SLOW IVP 20 mg Q4H PRN Administration SBP Greater Than 180 Metoprolol Tartrate 50 mg 08/30/20 09:00 09/03/20 08:29 Metoprolol Tartrate 50 Mg Tab PO 50 mg BID MEREDITH Administration Montelukast Sodium 10 mg 08/30/20 09:00 09/03/20 08:29 Montelukast Sodium 10 Mg Tablet PO 10 mg DAILY MEREDITH Administration Sodium Chloride 10 ml 09/02/20 21:00 09/03/20 08:49 Flush - Normal Saline 10 Ml Syringe IVF 10 ml Q12HR MEREDITH Administration Tamsulosin HCl 0.4 mg 08/30/20 09:00 09/03/20 08:29 Tamsulosin Hcl 0.4 Mg Cap PO 0.4 mg DAILY MEREDITH Administration Zinc Sulfate 220 mg 09/03/20 09:00 09/03/20 08:29 Zinc Sulfate 220 Mg Cap PO 220 mg DAILY MEREDITH Administration - Exam General Appearance: ill appearing General - other findings: On BiPAP Eye: PERRL ENT: normocephalic atraumatic Neck: supple Psychiatric: not oriented Hosp A/P - Plan Acute hypoxic respiratory failure likely from COVID pneumonia - chest x ray shows bilateral and interstitial alveolar opacities. Received home lasix 40 mg TID, will hold for now due to hypokalemia/hyponatremia. He is COVID+ -IV ceftriaxone and Zithromax. Since patient is quite confused and very low p.o. intake will put him on IV steroid once he is clinically stable then will switch him back to Decadron. -Ordered plasma infusion today. Metabolic encephalopathy -Acute stress of pneumonia and urinary tract infection -Correct underlying cause Syncope likely from Hypoglycemia - blood sugars improved. Now 160-200. He was taking NPH [address] home. [address] brain negative - will continue sliding scale insulin and consider restarting long acting insulin gradualy - last A1C 6.3 -troponin indeterminate, cancel ECHO since COVID+ , consider outpatient ECHO Hypertension - continue imdur, metoprolol Hyponatremia - sodium 132, worsening. Will hold lasix CAD - continue aspirin and plavix UTI -Already on antibiotic -Urine culture ordered to follow the result.>>>>>>>>>>>>>>>>> culture grew next damaris/contaminant hard of hearing 4th Type 2 diabetes Hyperglycemia, steroid-induced pre-existing diabetes --- Schedule low-dose insulin in addition to sliding scale -Follow-up on A1c Acute hypoxic respiratory failure; acute desats due to pulling his oxygen supplement. Metabolic encephalopathy probably due to COVID pneumonia and/or steroid-induced -Currently he is on BiPAP. -His IV steroid has been discontinued. Urine culture mixed skin damaris. 5th Ongoing hypoxic respiratory failure requiring BiPAP. COVID pneumonia -Inflammatory markers are high as CRP is 5.3 and ferritin is 979. Will check these markers intermittently and follow the clinical progression. Accelerated hypertension requiring Cardene drip Uncontrolled type 2 diabetes mellitus with A1c of 8.0. -Scheduled insulin as well as sliding scale given the blood glucose over 300 range
[2020-09-03] MEDS: cefTRIAXone\\ROCEPHIN 1 GM in Sodium Chloride 0.9% 100 ML IVPB SCH (21:39)
[2020-09-04] MEDS: niCARdipine 50 MG in Sodium Chloride 0.9% 250 ML 230 ML IV SCH (03:17)
[2020-09-04] MEDS: Hydrocortisone Sod Succ/PF 100 mg/2 ml Vial IVP SCH ×4 (05:44→22:57)
[2020-09-04] MEDS: HumaLOG 300 UNITS/3 ML VIAL SC PRN ×4 (05:45→21:22)
[2020-09-04 05:57] LABS: Anion Gap 15 mmol/L (10-20); BUN (Urea Nitrogen) 34 mg/dL (8.4-25.7); Calc. Creatinine Clearance 64 mL/min (70-130); Carbon Dioxide 23 mmol/L (23-31); Chloride 109 mmol/L (98-107); Estimated GFR-MDRD 55; Glucose 275 mg/dL (83-110); Potassium 3.9 mmol/L (3.5-5.1); Sodium 143 mmol/L (136-145)
[2020-09-04 06:14] LABS: Band 5 % (5-11); Hemoglobin 14.7 g/dL (14.0-18.0); Lymphocytes 10 % (21-51); MDiff Complete? YES; Mean Corpuscular HGB CONC 31.4 g/dL (32.0-36.0); Mean Corpuscular Hemoglobin 27.3 pg (27.0-31.0); Mean Corpuscular Volume 86.7 fL (78.0-98.0); Mean Platelet Volume 9.8 fL (7.4-10.4); Monocytes 3 % (0-10); Neutrophil 82 % (42-75); Platelet Count 276 thou/uL (130-400); Platelet Morphology Comment Appears Adequate; RBC Distribution Width 14.2 % (11.5-14.5); RBC Morphology Normal; Red Blood Cell (RBC) Count 5.38 mill/uL (4.70-6.10); White Blood Cell (WBC) Count 15.4 thou/uL (4.8-10.8)
--- NOTE | 2020-09-04 08:49 | RAD ---
PORTABLE CHEST: HISTORY: Pneumonia. COMPARISON: 08/31/2020. FINDINGS: There has been progression of bilateral infiltrates. There are now diffuse alveolar infiltrates thro ughout the left lung which are more pronounced. There are also increasing infiltrates in the right m id and lower lung. IMPRESSION: Progression of bilateral infiltrates. POS: AGW
[2020-09-04] MEDS: Insulin Glargine 5 UNITS in Pre-Filled Syringe 1 EACH SC SCH (09:26)
[2020-09-04] MEDS: Enoxaparin Sodium 80 MG/0.8 ML SYRINGE SC SCH ×2 (09:26→19:56)
[2020-09-04] MEDS ORDERED: Ventilator Sedation Protocol 1 EACH FS ONE (09:54)
[2020-09-04] MEDS ORDERED: Propofol 1,000 MG/100 ML VIAL IV ONE (10:02)
--- NOTE | 2020-09-04 10:17 | PRG ---
DATE OF SERVICE: 09/04/2020 TIME SPENT: 35 minutes of critical care time. SUBJECTIVE: Mr. Rey remains intubated, on mechanical ventilation. Mr. Rey remains on BiPAP. He is not doing well. He is on 100% FiO2 with O2 saturations in the mid 90s. He is extremely tachypneic. OBJECTIVE: VITAL SIGNS: His temperature is 97.0, pulse 73, blood pressure 130/78. He is on a Precedex drip and a nicardipine drip. HEENT: Unremarkable. NECK: No adenopathy or JVD. LUNGS: Diffuse crackles. CARDIAC: S1 and S2. Regular. ABDOMEN: Soft. EXTREMITIES: No edema. LABORATORY DATA: White blood cell count 15.4, hematocrit 46.7, and platelet count 276. Sodium 143, potassium 3.9, chloride 109, CO2 of 23, BUN 34, creatinine 1.5, glucose 275. ASSESSMENT: COVID-19 pneumonia with worsening x-ray, requiring 100% FiO2 on BiPAP and not improving. PLAN: 1. The patient needs to be intubated and prone. Continue steroids, anticoagulation. 2. Increase his subcutaneous insulin. Job ID: [id number]
[2020-09-04] MEDS ORDERED: Fentanyl BOLUS 250 ML IVPB PRN (10:30)
[2020-09-04] MEDS ORDERED: Propofol BOLUS 1,000 MG/100 ML VIAL IV PRN (10:30)
[2020-09-04] MEDS ORDERED: Morphine 2 MG/ML VIAL SLOW IVP PRN (10:30)
[2020-09-04] MEDS: Famotidine 20 MG TAB PO SCH ×2 (11:01→19:55)
[2020-09-04] MEDS: Metoprolol Tartrate 50 MG TAB PO SCH ×2 (11:01→19:55)
[2020-09-04] MEDS: Azithromycin 500 MG in Sodium Chloride 0.9% 250 ML 250 ML IVPB SCH (11:15)
[2020-09-04] MEDS: Clopidogrel Bisulfate 75 MG TAB PO SCH (11:16)
[2020-09-04] MEDS: Ascorbic Acid 500 mg Chewable Tablet PO SCH (11:16)
[2020-09-04] MEDS: Cholecalciferol (Vitamin D3) 400 UNITS TAB PO SCH (11:16)
[2020-09-04] MEDS: Aspirin 81 mg Enteric Coated Tablet PO SCH (11:16)
[2020-09-04] MEDS: Zinc Sulfate 220 MG CAP PO SCH (11:17)
[2020-09-04] MEDS: Montelukast Sodium 10 mg Tablet PO SCH (11:17)
[2020-09-04] MEDS: Amlodipine 5 MG TAB PO SCH (11:17)
[2020-09-04] MEDS: Tamsulosin HCl 0.4 MG CAP PO SCH (11:17)
[2020-09-04] MEDS: fentaNYL Citrate/PF 2,000 MCG in Sodium Chloride 0.9% 60 ML IV SCH (11:35)
[2020-09-04 11:48] LABS: Actual Bicarbonate (HCO3a) 22.6 mEq/L (22-28); Base Excess (BEa) -2.5 mEq/L (-2.0 to +3.0); CO2 Tension 40.3 mmHg (35.0-45.0); Calcium, Ionized (arterial) 1.16 mmol/L (1.12-1.30); Carboxyhemoglobin (COHb) 0.4 gm% (0.0-3.0); Hemoglobin (Hb) 15.5 g/dL (14.0-18.0); O2 Tension (PaO2), arterial 76.4 mmHg (> 70.0); Potassium - ABG Lab 3.91 mmol/L (3.70-5.30); pH, Arterial 7.37 (7.35-7.45)
[2020-09-04 11:53] LABS: ALV-art Gradient 586.225 mmHg (0-20); Puncture Site LRA
[2020-09-04] MEDS: Propofol 1,000 MG/100 ML VIAL IV PRN ×3 (14:08→22:57)
--- NOTE | 2020-09-04 14:11 | PDOC.HOSPP ---
- Subjective Encounter Date: 09/04/20 Encounter Time: 11:30 Subjective: . Chest x-ray this morning shows progression of the bilateral infiltrate diffuse throughout the left lung and increasing infiltrates in the right middle and lower lungs. Failed BiPAP mode of ventilation. Intubated. His white count is elevated at 15.4. - Objective Vital Signs & Weight: Vital Signs (12 hours) Pulse Resp BP Pulse Ox 09/04/20 11:39 69 09/04/20 11:17 62 99/69 09/04/20 08:00 100 09/04/20 02:34 68 35 H 97 Weight Admit Weight 234 lb 8 oz Weight 234 lb 8 oz Most Recent Monitor Data Heart Rate from ECG 73 NIBP 121/71 NIBP BP-Mean 87 Respiration from ECG 24 SpO2 100 I&O: 09/03/20 09/04/20 09/05/20 06:59 06:59 06:59 Intake Total 1538 1107 310 Output Total 1625 1605 185 Balance -87 -498 125 Result Diagrams: 09/04/20 05:15 09/04/20 05:15 Additional Labs: Accuchecks 09/04/20 09/04/20 09/03/20 09:37 05:21 22:04 POC Glucose 275 H 278 H 264 H 09/03/20 09/03/20 15:48 11:42 POC Glucose 310 H 382 H Hospitalist ROS - Medication Medications: Active Medications Generic Name Dose Route Start Last Admin Trade Name Freq PRN Reason Stop Dose Admin Acetaminophen 650 mg 08/29/20 16:11 09/02/20 21:39 Acetaminophen 325 Mg Tab PO 650 mg Q4H PRN Administration Headache/Fever/Mild Pain (1-3) Amlodipine Besylate 5 mg 08/31/20 09:00 09/04/20 11:17 Amlodipine 5 Mg Tab PO Not Given DAILY MEREDITH Ascorbic Acid 1,000 mg 09/03/20 09:00 09/04/20 11:16 Ascorbic Acid 500 Mg Chewable Tablet PO 1,000 mg DAILY MEREDITH Administration Aspirin 81 mg 08/30/20 09:00 09/04/20 11:16 Aspirin 81 Mg Enteric Coated Tablet PO 81 mg DAILY MEREDITH Administration Cholecalciferol 400 units 09/03/20 09:00 09/04/20 11:16 Cholecalciferol (Vitamin D3) 400 Units Tab PO 400 units DAILY MEREDITH Administration Clopidogrel Bisulfate 75 mg 10/01/20 09:00 09/04/20 11:16 Clopidogrel Bisulfate 75 Mg Tab PO 75 mg DAILY MEREDITH Administration Enoxaparin Sodium 70 mg 09/02/20 09:00 09/04/20 09:26 Enoxaparin Sodium 80 Mg/0.8 Ml Syringe SC 70 mg 09,2099 MEREDITH Administration Famotidine 20 mg 08/29/20 21:00 09/04/20 11:01 Famotidine 20 Mg Tab PO Not Given BID MEREDITH Hydrocortisone Sodium Succinate 100 mg 09/02/20 12:00 09/04/20 12:43 Hydrocortisone Sod Succ/Pf 100 Mg/2 Ml Vial IVP 100 mg Q6HR MEREDTIH Administration Ceftriaxone Sodium 1 gm/ 100 mls @ 200 mls/hr 08/31/20 21:00 09/03/20 21:39 Sodium Chloride IVPB 100 mls 2100 MEREDITH Administration Azithromycin 500 mg/ Sodium 250 mls @ 250 mls/hr 09/02/20 11:00 09/04/20 11:15 Chloride IVPB 250 mls Q24HR MEREDITH Administration Nicardipine HCl 50 mg/ Sodium 250 mls @ 0 mls/hr 09/03/20 09:15 09/04/20 03:17 Chloride IV 250 mls INF MEREDITH Administration Protocol As Directed Dexmedetomidine HCl 400 mcg/ 100 mls @ 0 mls/hr 09/03/20 15:00 09/04/20 06:01 Sodium Chloride IVPB 100 mls INF MEREDITH Administration Protocol Titrate Insulin Human Lispro 0 units 08/29/20 16:11 09/04/20 09:46 Humalog 300 Units/3 Ml Vial SC 6 unit .MODERATE SLIDING SC PRN Administration Moderate Correctional Scale Insulin Human Lispro 0 units 08/29/20 16:11 09/03/20 22:11 Humalog 300 Units/3 Ml Vial SC 3 unit .BEDTIME SLIDING SC PRN Administration Bedtime Correctional Scale Isosorbide Mononitrate 30 mg 08/30/20 09:00 09/04/20 11:17 Isosorbide Mononitrate Er 30 Mg Tab PO Not Given DAILY MEREDITH Labetalol HCl 20 mg 08/31/20 19:08 09/03/20 05:13 Labetalol Hcl 100 Mg/20 Ml Vial SLOW IVP 20 mg Q4H PRN Administration SBP Greater Than 180 Metoprolol Tartrate 50 mg 08/30/20 09:00 09/04/20 11:01 Metoprolol Tartrate 50 Mg Tab PO Not Given BID MEREDITH Montelukast Sodium 10 mg 08/30/20 09:00 09/04/20 11:17 Montelukast Sodium 10 Mg Tablet PO 10 mg DAILY MEREDITH Administration Propofol 1,000 mg 09/04/20 10:30 09/04/20 14:08 Propofol 1,000 Mg/100 Ml Vial IV 10/04/20 10:30 1,000 mg INF PRN Administration TO ACHIEVE GOAL RASS Protocol Sodium Chloride 10 ml 09/02/20 21:00 09/04/20 09:27 Flush - Normal Saline 10 Ml Syringe IVF 10 ml Q12HR MEREDITH Administration Tamsulosin HCl 0.4 mg 08/30/20 09:00 09/04/20 11:17 Tamsulosin Hcl 0.4 Mg Cap PO 0.4 mg DAILY MEREDITH Administration Zinc Sulfate 220 mg 09/03/20 09:00 09/04/20 11:17 Zinc Sulfate 220 Mg Cap PO 220 mg DAILY MEREDITH Administration - Exam General - other findings: Intubated Eye: PERRL Neck: supple Psychiatric: not oriented Hosp A/P - Plan Acute hypoxic respiratory failure likely from COVID pneumonia - chest x ray shows bilateral and interstitial alveolar opacities. Received home lasix 40 mg TID, will hold for now due to hypokalemia/hyponatremia. He is COVID+ -IV ceftriaxone and Zithromax. Since patient is quite confused and very low p.o. intake will put him on IV steroid once he is clinically stable then will switch him back to Decadron. -Ordered plasma infusion today. Metabolic encephalopathy -Acute stress of pneumonia and urinary tract infection -Correct underlying cause Syncope likely from Hypoglycemia - blood sugars improved. Now 160-200. He was taking NPH [address] at home. CT brain negative - will continue sliding scale insulin and consider restarting long acting insulin gradualy - last A1C 6.3 -troponin indeterminate, cancel ECHO since COVID+ , consider outpatient ECHO Hypertension - continue imdur, metoprolol Hyponatremia - sodium 132, worsening. Will hold lasix CAD - continue aspirin and plavix UTI -Already on antibiotic -Urine culture ordered to follow the result.>>>>>>>>>>>>>>>>> culture grew next damaris/contaminant hard of hearing 4th Type 2 diabetes Hyperglycemia, steroid-induced pre-existing diabetes --- Schedule low-dose insulin in addition to sliding scale -Follow-up on A1c Acute hypoxic respiratory failure; acute desats due to pulling his oxygen supplement. Metabolic encephalopathy probably due to COVID pneumonia and/or steroid-induced -Currently he is on BiPAP. -His IV steroid has been discontinued. Urine culture mixed skin damaris. 5th Ongoing hypoxic respiratory failure requiring BiPAP. COVID pneumonia -Inflammatory markers are high as CRP is 5.3 and ferritin is 979. Will check these markers intermittently and follow the clinical progression. Accelerated hypertension requiring Cardene drip Uncontrolled type 2 diabetes mellitus with A1c of 8.0. -Scheduled insulin as well as sliding scale given the blood glucose over 300 range 6th Worsening COVID pneumonia requiring intubation -Inflammatory markers persistently high. -Enoxaparin twice a day dose along with IV steroid zinc ceftriaxone and Zithromax Leukocytosis -Usually leukopenia with coVId -covered with antibiotics. -Urine culture grew mixed damaris Uncontrolled type 2 diabetes mellitus with A1c of 8.0. And steroid-induced hyperglycemia -Insulin dose switched from Lantus to NPH 20 units twice daily. Prognosis guarded. Patient full code Appreciate palliative care involvement. Consult placed.
[2020-09-04] MEDS: Vecuronium 10 MG VIAL IVP PRN (14:20)
[2020-09-04] MEDS: cefTRIAXone\\ROCEPHIN 1 GM in Sodium Chloride 0.9% 100 ML IVPB SCH (19:55)
[2020-09-04] MEDS ORDERED: NPH, Human Insulin Isophane 300 UNIT/3 ML VIAL SC SCH (21:00)
[2020-09-05] MEDS: Propofol 1,000 MG/100 ML VIAL IV PRN ×5 (03:43→20:18)
[2020-09-05 04:13] LABS: Anion Gap 16 mmol/L (10-20); BUN (Urea Nitrogen) 39 mg/dL (8.4-25.7); Calc. Creatinine Clearance 64 mL/min (70-130); Calcium 8.3 mg/dL (7.8-10.44); Carbon Dioxide 25 mmol/L (23-31); Chloride 110 mmol/L (98-107); Estimated GFR-MDRD 55; Glucose 343 mg/dL (83-110); Potassium 4.1 mmol/L (3.5-5.1); Sodium 147 mmol/L (136-145)
[2020-09-05 04:34] LABS: #Lymphocytes 0.7 thou/uL (1.20-3.40); #Monocytes 0.7 thou/uL (0.11-0.59); %Basophils 0.1 % (0.0-1.0); %Eosinophils 0.3 % (0.0-10.0); %Lymphocytes 5.1 % (21.0-51.0); %Monocytes 5.1 % (0.0-10.0); %Neutrophils 89.4 % (42.0-75.0); Hemoglobin 15.4 g/dL (14.0-18.0); Mean Corpuscular HGB CONC 30.7 g/dL (32.0-36.0); Mean Corpuscular Hemoglobin 27.3 pg (27.0-31.0); Mean Corpuscular Volume 89.1 fL (78.0-98.0); Mean Platelet Volume 9.5 fL (7.4-10.4); Platelet Count 288 thou/uL (130-400); RBC Distribution Width 14.4 % (11.5-14.5); Red Blood Cell (RBC) Count 5.63 mill/uL (4.70-6.10); White Blood Cell (WBC) Count 14.5 thou/uL (4.8-10.8)
[2020-09-05] MEDS: HumaLOG 300 UNITS/3 ML VIAL SC PRN ×4 (05:08→22:55)
[2020-09-05] MEDS: Hydrocortisone Sod Succ/PF 100 mg/2 ml Vial IVP SCH ×3 (05:16→18:07)
[2020-09-05] MEDS: fentaNYL Citrate/PF 2,000 MCG in Sodium Chloride 0.9% 60 ML IV SCH (06:03)
[2020-09-05 07:50] LABS: Actual Bicarbonate (HCO3a) 22.8 mEq/L (22-28); Base Excess (BEa) -1.2 mEq/L (-2.0 to +3.0); CO2 Tension 36.4 mmHg (35.0-45.0); Calcium, Ionized (arterial) 1.15 mmol/L (1.12-1.30); Carboxyhemoglobin (COHb) 0.5 gm% (0.0-3.0); O2 Tension (PaO2), arterial 100.6 mmHg (> 70.0); Potassium - ABG Lab 3.92 mmol/L (3.70-5.30); pH, Arterial 7.41 (7.35-7.45)
--- NOTE | 2020-09-05 08:22 | RAD ---
PORTABLE CHEST: HISTORY: Pneumonia and followup with CCU followup. COMPARISON: 09/04/2020. FINDINGS: ET tube and NG tube are noted. Hazy diffuse bilateral infiltrates are again noted more extensive thr oughout the left lung. Bilateral effusions. No significant change from yesterday. POS: AGW
[2020-09-05 08:24] LABS: Puncture Site RRA
[2020-09-05] MEDS: Aspirin 81 mg Enteric Coated Tablet PO SCH (08:43)
[2020-09-05] MEDS: Ascorbic Acid 500 mg Chewable Tablet PO SCH (08:43)
[2020-09-05] MEDS: Tamsulosin HCl 0.4 MG CAP PO SCH (08:43)
[2020-09-05] MEDS: Cholecalciferol (Vitamin D3) 400 UNITS TAB PO SCH (08:43)
[2020-09-05] MEDS: Clopidogrel Bisulfate 75 MG TAB PO SCH (08:43)
[2020-09-05] MEDS: Zinc Sulfate 220 MG CAP PO SCH (08:43)
[2020-09-05] MEDS: Montelukast Sodium 10 mg Tablet PO SCH (08:43)
[2020-09-05] MEDS: Famotidine 20 MG TAB PO SCH ×2 (08:43→20:16)
[2020-09-05] MEDS: Metoprolol Tartrate 50 MG TAB PO SCH ×2 (08:44→20:17)
[2020-09-05] MEDS: Enoxaparin Sodium 80 MG/0.8 ML SYRINGE SC SCH ×2 (08:44→20:15)
[2020-09-05] MEDS: Amlodipine 5 MG TAB PO SCH (08:44)
--- NOTE | 2020-09-05 09:06 | PRG ---
DATE OF SERVICE: 09/05/2020 35 minutes critical time. SUBJECTIVE: The patient remains intubated on mechanical ventilation for COVID-19 pneumonia. He is currently in a prone position and is oxygenating better. OBJECTIVE: VITAL SIGNS: His temperature is 98.4, pulse 70, blood pressure 149/80, O2 saturation 100%, 24-hour intake 1665, output 990. HEENT: Unremarkable. NECK: No adenopathy or JVD. LUNGS: Diminished breath sounds throughout. CARDIAC: S1, S2. Regular. ABDOMEN: Soft. EXTREMITIES: Trace edema. IMAGING: His x-ray continues to show bilateral diffuse infiltrates. LABORATORY DATA: Sodium 147, potassium 4.1, chloride 110, CO2 of 25, BUN 39, creatinine 1.5, glucose 343, ferritin 919. C-reactive protein 761. White blood cell count 14.5, hematocrit 50, platelet count 288. PH 7.41, pCO2 of 36, PO2 of 100 on SIMV rate 24, tidal volume 500, PEEP 12, pressure support 10, FiO2 of 90%. ASSESSMENT: 1. Coronavirus disease 2019 pneumonia. 2. Acute respiratory failure requiring mechanical ventilation. 3. Mild hypernatremia. 4. Hyperglycemia. PLAN: 1. Increase insulin. 2. Continue steroids and anticoagulation. 3. He has already received convalescent plasma. 4. Prognosis is very poor intake. Job ID: [id number]
[2020-09-05] MEDS ORDERED: Dextrose 5% w/ 20 mEq KCl 1,000 ML IV SCH (09:30)
[2020-09-05] MEDS: NPH, Human Insulin Isophane 300 UNIT/3 ML VIAL SC SCH ×2 (10:09→20:17)
[2020-09-05] MEDS: Azithromycin 500 MG in Sodium Chloride 0.9% 250 ML 250 ML IVPB SCH (12:00)
--- NOTE | 2020-09-05 12:54 | EKG ---
Test Reason : Blood Pressure : / mmHG Vent. Rate : 070 BPM Atrial Rate : 070 BPM P-R Int : 144 ms QRS Dur : 078 ms QT Int : 372 ms P-R-T Axes : 049 -35 145 degrees QTc Int : 401 ms Normal sinus rhythm Left axis deviation Inferior infarct , age undetermined T wave abnormality, consider anterolateral ischemia Abnormal ECG Confirmed by CHANEL CAGE DO ([id number]), transaction manager [employer]BES ([id number] on 09/05/2020 12:54:10 PM Referred By: Confirmed By:CHANEL CAGE DO
[2020-09-05 15:26] LABS: Sodium 145 mmol/L (136-145)
--- NOTE | 2020-09-05 15:31 | PDOC.HOSPP ---
- Subjective Encounter Date: 09/05/20 Encounter Time: 11:10 Subjective: Patient being turned in the prone position. His sodium slightly up at 147. He has uncontrolled blood glucose. Insulin dose is increased. Will be starting on of tube feed soon. We will give him free water along with tube feed to correct the sodium to 200 mL every 4 hours as D5 would exacerbate his blood glucose level. Notified RN. today's chest x-ray shows bilateral infiltrate that is more extensive on the left side. - Objective Vital Signs & Weight: Vital Signs (12 hours) Temp Pulse Resp BP Pulse Ox 09/05/20 14:34 67 129/70 09/05/20 14:00 24 H 09/05/20 12:00 97.1 F L 24 H 09/05/20 10:55 68 154/86 H 09/05/20 10:00 24 H 09/05/20 08:44 68 154/82 H 09/05/20 08:00 24 H 100 09/05/20 07:10 72 09/05/20 05:58 24 H 09/05/20 04:00 98.4 F 24 H Weight Admit Weight 234 lb 8 oz Weight 231 lb 7.766 oz Most Recent Monitor Data Heart Rate from ECG 59 NIBP 129/70 NIBP BP-Mean 89 Respiration from ECG 24 SpO2 100 I&O: 09/04/20 09/05/20 09/06/20 06:59 06:59 06:59 Intake Total 1107 1665.2 310 Output Total 1605 990 240 Balance -498 675.2 70 Result Diagrams: 09/05/20 03:30 09/05/20 14:56 Additional Labs: Accuchecks 09/05/20 09/04/20 09/04/20 10:06 21:22 16:27 POC Glucose 304 H 225 H 243 H Hospitalist ROS - Medication Medications: Active Medications Generic Name Dose Route Start Last Admin Trade Name Freq PRN Reason Stop Dose Admin Acetaminophen 650 mg 08/29/20 16:11 09/02/20 21:39 Acetaminophen 325 Mg Tab PO 650 mg Q4H PRN Administration Headache/Fever/Mild Pain (1-3) Amlodipine Besylate 5 mg 08/31/20 09:00 09/05/20 08:44 Amlodipine 5 Mg Tab PO 5 mg DAILY MEREDITH Administration Ascorbic Acid 1,000 mg 09/03/20 09:00 09/05/20 08:43 Ascorbic Acid 500 Mg Chewable Tablet PO 1,000 mg DAILY MEREDITH Administration Aspirin 81 mg 08/30/20 09:00 09/05/20 08:43 Aspirin 81 Mg Enteric Coated Tablet PO 81 mg DAILY MEREDITH Administration Cholecalciferol 400 units 09/03/20 09:00 09/05/20 08:43 Cholecalciferol (Vitamin D3) 400 Units Tab PO 400 units DAILY MEREDITH Administration Clopidogrel Bisulfate 75 mg 08/30/20 09:00 09/05/20 08:43 Clopidogrel Bisulfate 75 Mg Tab PO 75 mg DAILY MEREDITH Administration Enoxaparin Sodium 70 mg 09/02/20 09:00 09/05/20 08:44 Enoxaparin Sodium 80 Mg/0.8 Ml Syringe SC 70 mg MEREDITH Administration Famotidine 20 mg 08/29/20 21:00 09/05/20 08:43 Famotidine 20 Mg Tab PO 20 mg BID MEREDITH Administration Hydrocortisone Sodium Succinate 100 mg 09/02/20 12:00 09/05/20 12:01 Hydrocortisone Sod Succ/Pf 100 Mg/2 Ml Vial IVP 100 mg Q6HR MEREDITH Administration Ceftriaxone Sodium 1 gm/ 100 mls @ 200 mls/hr 08/31/20 21:00 09/04/20 19:55 Sodium Chloride IVPB 100 mls 2100 MEREDITH Administration Azithromycin 500 mg/ Sodium 250 mls @ 250 mls/hr 09/02/20 11:00 09/05/20 12:00 Chloride IVPB 250 mls Q24HR MEREDITH Administration Nicardipine HCl 50 mg/ Sodium 250 mls @ 0 mls/hr 09/03/20 09:15 09/04/20 03:17 Chloride IV 250 mls INF MEREDITH Administration Protocol As Directed Dexmedetomidine HCl 400 mcg/ 100 mls @ 0 mls/hr 09/03/20 15:00 09/04/20 06:01 Sodium Chloride IVPB 100 mls INF MEREDITH Administration Protocol Titrate Fentanyl Citrate 2,000 mcg/ 100 mls @ 0 mls/hr 09/04/20 10:30 09/05/20 06:03 Sodium Chloride IV 10/04/20 10:30 100 mls INF MEREDITH Administration Protocol Per Protocol Insulin Human Lispro 0 units 08/29/20 16:11 09/05/20 10:09 Humalog 300 Units/3 Ml Vial SC 8 unit .MODERATE SLIDING SC PRN Administration Moderate Correctional Scale Insulin Human Lispro 0 units 08/29/20 16:11 09/04/20 21:22 Humalog 300 Units/3 Ml Vial SC 2 unit .BEDTIME SLIDING SC PRN Administration Bedtime Correctional Scale Insulin Human NPH 40 unit 09/05/20 09:00 09/05/20 10:09 Nph, Human Insulin Isophane 300 Unit/3 Ml Vial SC 40 unit BID MEREDITH Administration Isosorbide Mononitrate 30 mg 08/30/20 09:00 09/05/20 08:44 Isosorbide Mononitrate Er 30 Mg Tab PO 30 mg DAILY MEREDITH Administration Labetalol HCl 20 mg 08/31/20 19:08 09/03/20 05:13 Labetalol Hcl 100 Mg/20 Ml Vial SLOW IVP 20 mg Q4H PRN Administration SBP Greater Than 180 Metoprolol Tartrate 50 mg 08/30/20 09:00 09/05/20 08:44 Metoprolol Tartrate 50 Mg Tab PO 50 mg BID MEREDITH Administration Montelukast Sodium 10 mg 08/30/20 09:00 09/05/20 08:43 Montelukast Sodium 10 Mg Tablet PO 10 mg DAILY MEREDITH Administration Propofol 1,000 mg 09/04/20 10:30 09/05/20 13:20 Propofol 1,000 Mg/100 Ml Vial IV 10/04/20 10:30 1,000 mg INF PRN Administration TO ACHIEVE GOAL RASS Protocol Sodium Chloride 10 ml 09/02/20 21:00 09/05/20 08:45 Flush - Normal Saline 10 Ml Syringe IVF 10 ml Q12HR MEREDITH Administration Tamsulosin HCl 0.4 mg 08/30/20 09:00 09/05/20 08:43 Tamsulosin Hcl 0.4 Mg Cap PO 0.4 mg DAILY MEREDITH Administration Vecuronium [place] 10 mg 09/04/20 10:01 09/04/20 14:20 Vecuronium 10 Mg Vial IVP 10 mg Q30MIN PRN Administration Agitation Zinc Sulfate 220 mg 09/03/20 09:00 09/05/20 08:43 Zinc Sulfate 220 Mg Cap PO 220 mg DAILY MEREDITH Administration - Exam General - other findings: On vent Hosp A/P - Plan Acute hypoxic respiratory failure likely from COVID pneumonia - chest x ray shows bilateral and interstitial alveolar opacities. Received home lasix 40 mg TID, will hold for now due to hypokalemia/hyponatremia. He is COVID+ -IV ceftriaxone and Zithromax. Since patient is quite confused and very low p.o. intake will put him on IV steroid once he is clinically stable then will switch him back to Decadron. -Ordered plasma infusion today. Metabolic encephalopathy -Acute stress of pneumonia and urinary tract infection -Correct underlying cause Syncope likely from Hypoglycemia - blood sugars improved. Now 160-200. He was taking NPH [address] at home. CT brain negative - will continue sliding scale insulin and consider restarting long acting insulin gradualy - last A1C 6.3 -troponin indeterminate, cancel ECHO since COVID+ , consider outpatient ECHO Hypertension - continue imdur, metoprolol Hyponatremia - sodium 132, worsening. Will hold lasix CAD - continue aspirin and plavix UTI -Already on antibiotic -Urine culture ordered to follow the result.>>>>>>>>>>>>>>>>> culture grew next damaris/contaminant hard of hearing 4th Type 2 diabetes Hyperglycemia, steroid-induced pre-existing diabetes --- Schedule low-dose insulin in addition to sliding scale -Follow-up on A1c Acute hypoxic respiratory failure; acute desats due to pulling his oxygen s upplement. Metabolic encephalopathy probably due to COVID pneumonia and/or steroid-induced -Currently he is on BiPAP. -His IV steroid has been discontinued. Urine culture mixed skin damaris. 5th Ongoing hypoxic respiratory failure requiring BiPAP. COVID pneumonia -Inflammatory markers are high as CRP is 5.3 and ferritin is 979. Will check these markers intermittently and follow the clinical progression. Accelerated hypertension requiring Cardene drip Uncontrolled type 2 diabetes mellitus with A1c of 8.0. -Scheduled insulin as well as sliding scale given the blood glucose over 300 range 6th Worsening COVID pneumonia requiring intubation -Inflammatory markers persistently high. -Enoxaparin twice a day dose along with IV steroid zinc ceftriaxone and Zithromax Leukocytosis -Usually leukopenia with coVId -covered with antibiotics. -Urine culture grew mixed damaris Uncontrolled type 2 diabetes mellitus with A1c of 8.0. And steroid-induced hyperglycemia -Insulin dose switched from Lantus to NPH 20 units twice daily. Prognosis guarded. Patient full code Appreciate palliative care involvement. Consult placed. 8th today's chest x-ray shows bilateral infiltrate that is more extensive on the left side. Hyperglycemia with a type 2 diabetes mellitus He has uncontrolled blood glucose. Insulin dose is increased. Hypernatremia - will be starting on of tube feed soon. -free water along with tube feed to correct the sodium to 200 mL every 4 hours as D5 would exacerbate his blood glucose level.
[2020-09-05] MEDS: cefTRIAXone\\ROCEPHIN 1 GM in Sodium Chloride 0.9% 100 ML IVPB SCH (20:10)
[2020-09-06] MEDS: Hydrocortisone Sod Succ/PF 100 mg/2 ml Vial IVP SCH ×4 (00:24→17:42)
[2020-09-06 06:31] LABS: Band 5 % (5-11); Hemoglobin 14.5 g/dL (14.0-18.0); Lymphocytes 3 % (21-51); MDiff Complete? YES; Mean Corpuscular HGB CONC 31.3 g/dL (32.0-36.0); Mean Corpuscular Volume 89.2 fL (78.0-98.0); Mean Platelet Volume 9.9 fL (7.4-10.4); Monocytes 5 % (0-10); Neutrophil 87 % (42-75); Platelet Count 289 thou/uL (130-400); Platelet Morphology Comment Appears Adequate; RBC Distribution Width 14.3 % (11.5-14.5); RBC Morphology Normal; White Blood Cell (WBC) Count 14.4 thou/uL (4.8-10.8)
[2020-09-06 07:36] LABS: Actual Bicarbonate (HCO3a) 25.6 mEq/L (22-28); Base Excess (BEa) 0.9 mEq/L (-2.0 to +3.0); CO2 Tension 41.2 mmHg (35.0-45.0); Calcium, Ionized (arterial) 1.18 mmol/L (1.12-1.30); Carboxyhemoglobin (COHb) 0.5 gm% (0.0-3.0); Hemoglobin (Hb) 14.6 g/dL (14.0-18.0); O2 Tension (PaO2), arterial 72.8 mmHg (> 70.0); Potassium - ABG Lab 3.89 mmol/L (3.70-5.30); pH, Arterial 7.41 (7.35-7.45)
[2020-09-06] MEDS: Propofol 1,000 MG/100 ML VIAL IV PRN ×4 (07:43→20:44)
--- NOTE | 2020-09-06 08:01 | RAD ---
CHEST 1 VIEW: Date: 09/06/2020 INDICATION: History of pneumonia. COMPARISON: Prior exam dated 09/05/2020. FINDINGS: Bilateral air space disease, ET tube, gastric catheter, and midline sternotomy changes are stable. Le ft costophrenic angle is excluded. No pneumothorax is evident. Osseous structures are stable appearin g. IMPRESSION: 1. Stable bilateral air space disease. 2. Stable tubes and lines. 3. No definite pneumothorax demonstrated. POS: BH
[2020-09-06 08:50] LABS: Puncture Site RRA
[2020-09-06 09:26] LABS: Anion Gap 16 mmol/L (10-20); BUN (Urea Nitrogen) 53 mg/dL (8.4-25.7); CRP (Inflammatory) 4.59 mg/dL (= or < 0.5); Calc. Creatinine Clearance 53 mL/min (70-130); Carbon Dioxide 25 mmol/L (23-31); Chloride 111 mmol/L (98-107); Estimated GFR-MDRD 45; Glucose 318 mg/dL (83-110); Potassium 3.9 mmol/L (3.5-5.1); Sodium 148 mmol/L (136-145)
[2020-09-06] MEDS: Ascorbic Acid 500 mg Chewable Tablet PO SCH (09:40)
[2020-09-06] MEDS: Zinc Sulfate 220 MG CAP PO SCH (09:40)
[2020-09-06] MEDS: Montelukast Sodium 10 mg Tablet PO SCH (09:41)
[2020-09-06] MEDS: Aspirin 81 mg Enteric Coated Tablet PO SCH (09:41)
[2020-09-06] MEDS: Famotidine 20 MG TAB PO SCH ×2 (09:41→20:45)
[2020-09-06] MEDS: Tamsulosin HCl 0.4 MG CAP PO SCH (09:42)
[2020-09-06] MEDS: Cholecalciferol (Vitamin D3) 400 UNITS TAB PO SCH (09:42)
[2020-09-06] MEDS: Clopidogrel Bisulfate 75 MG TAB PO SCH (09:42)
[2020-09-06] MEDS: NPH, Human Insulin Isophane 300 UNIT/3 ML VIAL SC SCH ×2 (09:43→20:45)
[2020-09-06] MEDS: Enoxaparin Sodium 80 MG/0.8 ML SYRINGE SC SCH ×2 (09:43→20:44)
[2020-09-06] MEDS: Amlodipine 5 MG TAB PO SCH (09:43)
[2020-09-06] MEDS: Metoprolol Tartrate 50 MG TAB PO SCH ×2 (09:43→20:45)
[2020-09-06] MEDS: HumaLOG 300 UNITS/3 ML VIAL SC PRN ×2 (10:01→17:00)
--- NOTE | 2020-09-06 11:00 | PRG ---
DATE OF SERVICE: 09/06/2020 35 minutes of critical care time. SUBJECTIVE: The patient remains intubated on mechanical ventilation. There have been no acute changes overnight. OBJECTIVE: VITAL SIGNS: Temperature 97.4, pulse 63, blood pressure 159/66, O2 saturation 99%. He is sedated on propofol and fentanyl. 24-hour intake was 3306, output 900. HEENT: Unchanged. NECK: No JVD. LUNGS: Crackles bilaterally. CARDIAC: S1, S2. Regular. ABDOMEN: Soft. EXTREMITIES: No edema. LABORATORY DATA: White blood cell count 14.4, hematocrit 46.4, and platelet count 289. PH of 7.41, pCO2 of 41, pO2 of 72, on SIMV rate 24, tidal volume 500, PEEP 12, pressure support 10, FiO2 of 50%. Sodium 148, potassium 3.9, chloride 111, CO2 of 25, BUN 53, creatinine 1.7, glucose 318, ferritin 860. C-reactive protein 4.5. X-ray looks a little clear compared to yesterday. ASSESSMENT: 1. COVID-19 pneumonia. 2. Acute respiratory failure, requiring mechanical ventilation. 3. Hyperglycemia. 4. Hypernatremia. PLAN: 1. Continue steroids. 2. Increase insulin coverage. 3. Not weanable at the current time. Job ID: [id number]
[2020-09-06] MEDS: Azithromycin 500 MG in Sodium Chloride 0.9% 250 ML 250 ML IVPB SCH (11:40)
[2020-09-06] MEDS: Vecuronium 10 MG VIAL IVP PRN (15:00)
--- NOTE | 2020-09-06 15:17 | PDOC.HOSPP ---
- Subjective Encounter Date: 09/06/20 Encounter Time: 10:30 Subjective: His blood sugar is still requiring more insulin titration. Chest x-ray this morning shows bilateral infiltrate and no pneumothorax. He is currently on supine position in the vent. Since this 6:00 his urine output seems to be better at 375 mL so far. His sodium is slightly high at 148. He is getting free water. Will switch his IV infusions to D5 form. - Objective Vital Signs & Weight: Vital Signs (12 hours) Temp Pulse Resp BP Pulse Ox 09/06/20 10:00 24 H 09/06/20 09:43 66 148/75 H 09/06/20 08:00 24 H 100 09/06/20 06:00 24 H 09/06/20 04:00 97.4 F L 24 H Weight Admit Weight 234 lb 8 oz Weight 230 lb 6.129 oz Most Recent Monitor Data Heart Rate from ECG 59 NIBP 108/61 NIBP BP-Mean 76 Respiration from ECG 24 SpO2 99 I&O: 09/05/20 09/06/20 09/07/20 06:59 06:59 06:59 Intake Total 1665.2 3306.9 70 Output Total 990 900 375 Balance 675.2 2406.9 -305 Result Diagrams: 09/06/20 04:00 09/06/20 03:02 Additional Labs: Accuchecks 09/06/20 09/05/20 09:53 16:25 POC Glucose 278 H 244 H Hospitalist ROS - Medication Medications: Active Medications Generic Name Dose Route Start Last Admin Trade Name Freq PRN Reason Stop Dose Admin Acetaminophen 650 mg 08/29/20 16:11 09/02/20 21:39 Acetaminophen 325 Mg Tab PO 650 mg Q4H PRN Administration Headache/Fever/Mild Pain (1-3) Amlodipine Besylate 5 mg 08/31/20 09:00 09/06/20 09:43 Amlodipine 5 Mg Tab PO 5 mg DAILY MEREDITH Administration Ascorbic Acid 1,000 mg 09/03/20 09:00 09/06/20 09:40 Ascorbic Acid 500 Mg Chewable Tablet PO 1,000 mg DAILY MEREDITH Administration Aspirin 81 mg 08/30/20 09:00 09/06/20 09:41 Aspirin 81 Mg Enteric Coated Tablet PO 81 mg DAILY MEREDITH Administration Cholecalciferol 400 units 09/03/20 09:00 09/06/20 09:42 Cholecalciferol (Vitamin D3) 400 Units Tab PO 400 units DAILY MEREDITH Administration Clopidogrel Bisulfate 75 mg 08/30/20 09:00 09/06/20 09:42 Clopidogrel Bisulfate 75 Mg Tab PO 75 mg DAILY MEREDITH Administration Enoxaparin Sodium 70 mg 09/02/20 09:00 09/06/20 09:43 Enoxaparin Sodium 80 Mg/0.8 Ml Syringe SC 70 mg 0900,2100 MEREDITH Administration Famotidine 20 mg 08/29/20 21:00 09/06/20 09:41 Famotidine 20 Mg Tab PO 20 mg BID MEREDITH Administration Hydrocortisone Sodium Succinate 50 mg 09/06/20 10:45 09/06/20 11:41 Hydrocortisone Sod Succ/Pf 100 Mg/2 Ml Vial IVP 50 mg Q6HR MEREDITH Administration Ceftriaxone Sodium 1 gm/ 100 mls @ 200 mls/hr 08/31/20 21:00 09/05/20 20:10 Sodium Chloride IVPB 100 mls 2100 MEREDITH Administration Azithromycin 500 mg/ Sodium 250 mls @ 250 mls/hr 09/02/20 11:00 09/06/20 11:40 Chloride IVPB 250 mls Q24HR MEREDITH Administration Nicardipine HCl 50 mg/ Sodium 250 mls @ 0 mls/hr 09/03/20 09:15 09/04/20 03:17 Chloride IV 250 mls INF MEREDITH Administration Protocol As Directed Dexmedetomidine HCl 400 mcg/ 100 mls @ 0 mls/hr 09/03/20 15:00 09/04/20 06:01 Sodium Chloride IVPB 100 mls INF MEREDITH Administration Protocol Titrate Fentanyl Citrate 2,000 mcg/ 100 mls @ 0 mls/hr 09/04/20 10:30 09/05/20 06:03 Sodium Chloride IV 10/04/20 10:30 100 mls INF MEREDITH Administration Protocol Per Protocol Insulin Human Lispro 0 units 08/29/20 16:11 09/06/20 10:01 Humalog 300 Units/3 Ml Vial SC 6 unit .MODERATE SLIDING SC PRN Administration Moderate Correctional Scale Insulin Human Lispro 0 units 08/29/20 16:11 09/05/20 22:55 Humalog 300 Units/3 Ml Vial SC 3 unit .BEDTIME SLIDING SC PRN Administration Bedtime Correctional Scale Isosorbide Mononitrate 30 mg 08/30/20 09:00 09/06/20 09:43 Isosorbide Mononitrate Er 30 Mg Tab PO 30 mg DAILY MEREDITH Administration Labetalol HCl 20 mg 08/31/20 19:08 09/03/20 05:13 Labetalol Hcl 100 Mg/20 Ml Vial SLOW IVP 20 mg Q4H PRN Administration SBP Greater Than 180 Metoprolol Tartrate 50 mg 08/30/20 09:00 09/06/20 09:43 Metoprolol Tartrate 50 Mg Tab PO 50 mg BID MEREDITH Administration Montelukast Sodium 10 mg 08/30/20 09:00 09/06/20 09:41 Montelukast Sodium 10 Mg Tablet PO 10 mg DAILY MEREDITH Administration Propofol 1,000 mg 09/04/20 10:30 09/06/20 12:32 Propofol 1,000 Mg/100 Ml Vial IV 10/04/20 10:30 1,000 mg INF PRN Administration TO ACHIEVE GOAL RASS Protocol Sodium Chloride 10 ml 09/02/20 21:00 09/06/20 09:43 Flush - Normal Saline 10 Ml Syringe IVF 10 ml Q12HR MEREDITH Administration Tamsulosin HCl 0.4 mg 08/30/20 09:00 09/06/20 09:42 Tamsulosin Hcl 0.4 Mg Cap PO 0.4 mg DAILY MEREDITH Administration Vecuronium [place] 10 mg 09/04/20 10:01 09/04/20 14:20 Vecuronium 10 Mg Vial IVP 10 mg Q30MIN PRN Administration Agitation Zinc Sulfate 220 mg 09/03/20 09:00 09/06/20 09:40 Zinc Sulfate 220 Mg Cap PO 220 mg DAILY MEREDITH Administration - Exam General - other findings: On vent ENT: normocephalic atraumatic Neck: supple Hosp A/P - Plan Acute hypoxic respiratory failure likely from COVID pneumonia - chest x ray shows bilateral and interstitial alveolar opacities. Received home lasix 40 mg TID, will hold for now due to hypokalemia/hyponatremia. He is COVID+ -IV ceftriaxone and Zithromax. Since patient is quite confused and very low p.o. intake will put him on IV steroid once he is clinically stable then will switch him back to Decadron. -Ordered plasma infusion today. Metabolic encephalopathy -Acute stress of pneumonia and urinary tract infection -Correct underlying cause Syncope likely from Hypoglycemia - blood sugars improved. Now 160-200. He was taking NPH 60 units [address]ID at home. CT brain negative - will continue sliding scale insulin and consider restarting long acting insulin gradualy - last A1C 6.3 -troponin indeterminate, cancel ECHO since COVID+ , consider outpatient ECHO Hypertension - continue imdur, metoprolol Hyponatremia - sodium 132, worsening. Will hold lasix CAD - continue aspirin and plavix UTI -Already on antibiotic -Urine culture ordered to follow the result.>>>>>>>>>>>>>>>>> culture grew next damaris/contaminant hard of hearing 4th Type 2 diabetes Hyperglycemia, steroid-induced pre-existing diabetes --- Schedule low-dose insulin in addition to sliding scale -Follow-up on A1c Acute hypoxic respiratory failure; acute desats due to pulling his oxygen supplement. Metabolic encephalopathy probably due to COVID pneumonia and/or steroid-induced -Currently he is on BiPAP. -His IV steroid has been discontinued. Urine culture mixed skin damaris. 5th Ongoing hypoxic respiratory failure requiring BiPAP. COVID pneumonia -Inflammatory markers are high as CRP is 5.3 and ferritin is 979. Will check these markers intermittently and follow the clinical progression. Accelerated hypertension requiring Cardene drip Uncontrolled type 2 diabetes mellitus with A1c of 8.0. -Scheduled insulin as well as sliding scale given the blood glucose over 300 range 6th Worsening COVID pneumonia requiring intubation -Inflammatory markers persistently high. -Enoxaparin twice a day dose along with IV steroid zinc ceftriaxone and Zithromax Leukocytosis -Usually leukopenia with coVId -covered with antibiotics. -Urine culture grew mixed damaris Uncontrolled type 2 diabetes mellitus with A1c of 8.0. And steroid-induced hyperglycemia -Insulin dose switched from Lantus to NPH 20 units twice daily. Prognosis guarded. Patient full code Appreciate palliative care involvement. Consult placed. 7th today's chest x-ray shows bilateral infiltrate that is more extensive on the left side. Hyperglycemia with a type 2 diabetes mellitus He has uncontrolled blood glucose. Insulin dose is increased. Hypernatremia - will be starting on of tube feed soon. -free water along with tube feed to correct the sodium to 200 mL every 4 hours as D5 would exacerbate his blood glucose level. 8th blood sugar is still requiring more insulin titration. Chest x-ray this morning shows bilateral infiltrate and no pneumothorax. He is currently on supine position in the vent. Since this 6:00 his urine output seems to be better at 375 mL so far. His sodium is slightly high at 148. He is getting free water. Will switch his IV infusions to D5 form.
[2020-09-06] MEDS: cefTRIAXone\\ROCEPHIN 1 GM in Sodium Chloride 0.9% 100 ML IVPB SCH (20:44)
[2020-09-06] MEDS: fentaNYL Citrate/PF 2,000 MCG in Sodium Chloride 0.9% 60 ML IV SCH (20:46)
--- NOTE | 2020-09-06 21:10 | OP ---
DATE OF PROCEDURE: 09/06/2020 PROCEDURE PERFORMED: Central line placement. PREOPERATIVE DIAGNOSIS: Poor IV access. POSTOPERATIVE DIAGNOSIS: Successful left femoral central line placement. ANESTHESIA: None. DESCRIPTION OF PROCEDURE: An attempt was first made in the right IJ area, but I was unable to cannulate the vessel. Therefore, that site was aborted and the left femoral region was chosen. The vessel was located by ultrasound and marked. The site was cleansed with chlorhexidine and draped sterilely. On first attempt, the vessel was cannulated with a needle. A wire was passed through the needle and the needle was removed. Triple-lumen catheter was placed over the wire after the vessel been dilated. The line was sutured in position. Three ports flushed venous blood. Job ID: [id number]
[2020-09-07] MEDS: Hydrocortisone Sod Succ/PF 100 mg/2 ml Vial IVP SCH ×5 (00:28→22:47)
[2020-09-07] MEDS: Propofol 1,000 MG/100 ML VIAL IV PRN ×5 (02:17→20:56)
[2020-09-07 04:34] LABS: Anion Gap 12 mmol/L (10-20); BUN (Urea Nitrogen) 44 mg/dL (8.4-25.7); Calc. Creatinine Clearance 70 mL/min (70-130); Calcium 7.8 mg/dL (7.8-10.44); Carbon Dioxide 28 mmol/L (23-31); Chloride 112 mmol/L (98-107); Estimated GFR-MDRD 62; Glucose 201 mg/dL (83-110); Potassium 3.8 mmol/L (3.5-5.1); Sodium 148 mmol/L (136-145)
[2020-09-07 05:19] LABS: Band 2 % (5-11); Hemoglobin 13.3 g/dL (14.0-18.0); Lymphocytes 3 % (21-51); MDiff Complete? YES; Mean Corpuscular HGB CONC 32.6 g/dL (32.0-36.0); Mean Corpuscular Hemoglobin 28.6 pg (27.0-31.0); Mean Corpuscular Volume 87.6 fL (78.0-98.0); Mean Platelet Volume 9.9 fL (7.4-10.4); Monocytes 7 % (0-10); Neutrophil 88 % (42-75); Platelet Count 304 thou/uL (130-400); RBC Distribution Width 14.3 % (11.5-14.5); Red Blood Cell (RBC) Count 4.64 mill/uL (4.70-6.10); White Blood Cell (WBC) Count 11.9 thou/uL (4.8-10.8)
[2020-09-07 07:39] LABS: Actual Bicarbonate (HCO3a) 27.1 mEq/L (22-28); Base Excess (BEa) 3.3 mEq/L (-2.0 to +3.0); CO2 Tension 38.8 mmHg (35.0-45.0); Calcium, Ionized (arterial) 1.16 mmol/L (1.12-1.30); Carboxyhemoglobin (COHb) 0.4 gm% (0.0-3.0); Hemoglobin (Hb) 16.4 g/dL (14.0-18.0); O2 Tension (PaO2), arterial 75.7 mmHg (> 70.0); Potassium - ABG Lab 3.69 mmol/L (3.70-5.30); pH, Arterial 7.46 (7.35-7.45)
[2020-09-07 08:02] LABS: Puncture Site RRAD
[2020-09-07] MEDS: Ascorbic Acid 500 mg Chewable Tablet PO SCH (08:48)
[2020-09-07] MEDS: Cholecalciferol (Vitamin D3) 400 UNITS TAB PO SCH (08:48)
[2020-09-07] MEDS: Clopidogrel Bisulfate 75 MG TAB PO SCH (08:49)
[2020-09-07] MEDS: Tamsulosin HCl 0.4 MG CAP PO SCH (08:49)
[2020-09-07] MEDS: Zinc Sulfate 220 MG CAP PO SCH (08:49)
[2020-09-07] MEDS: Aspirin 81 mg Enteric Coated Tablet PO SCH (08:49)
[2020-09-07] MEDS: Amlodipine 5 MG TAB PO SCH (08:49)
[2020-09-07] MEDS: Montelukast Sodium 10 mg Tablet PO SCH (08:49)
[2020-09-07] MEDS: Famotidine 20 MG TAB PO SCH ×2 (08:49→20:54)
[2020-09-07] MEDS: Enoxaparin Sodium 80 MG/0.8 ML SYRINGE SC SCH ×2 (08:50→20:53)
[2020-09-07] MEDS: NPH, Human Insulin Isophane 300 UNIT/3 ML VIAL SC SCH ×3 (09:23→22:38)
--- NOTE | 2020-09-07 10:04 | PRG ---
DATE OF SERVICE: 09/07/2020 35 minutes critical care time. SUBJECTIVE: The patient remains intubated on mechanical ventilation for COVID-19 pneumonia. OBJECTIVE: VITAL SIGNS: Temperature 98, pulse 63, blood pressure 146/81, O2 saturation 100%. He is moving around in the bed. His intake has been 3441, output 1570. Weight 229 pounds. HEENT: Unremarkable except for oropharynx intubated. NECK: No adenopathy or JVD. LUNGS: Coarse breath sounds bilaterally. CARDIOVASCULAR: S1, S2. Regular. ABDOMEN: Soft and nontender to palpation. EXTREMITIES: No clubbing or cyanosis, but he has trace edema throughout. LABORATORY DATA: Sodium 148, potassium 3.8, chloride 112, CO2 of 28, BUN 44, creatinine 1.3, and glucose 201. White blood cell count 11.9, hematocrit 40.7, and platelet count 304. PH 7.46, pCO2 of 38, pO2 of 75 on SIMV rate 24, tidal volume 500, PEEP 12, pressure support 10, and FiO2 of 50%. ASSESSMENT AND PLAN: 1. COVID-19 pneumonia. 2. Acute respiratory failure, requiring mechanical ventilation-oxygenation somewhat better. 3. Hyperglycemia. 4. Mild hypernatremia. PLAN: 1. Continue steroids. 2. Reduce FiO2. 3. Continue insulin coverage. 4. Continue tube feeds. 5. Continue anticoagulation. 6. I would anticipate several more days before being able to proceed with more aggressive weaning. Job ID: [id number]
--- NOTE | 2020-09-07 10:05 | RAD ---
PORTABLE CHEST: COMPARISON: Prior day's exam. HISTORY: Pneumonia. FINDINGS: Endotracheal and NG tubes are in satisfactory position. Airspace changes are similar to the previous exam. IMPRESSION: Stable exam. POS: DENISE
[2020-09-07] MEDS: Metoprolol Tartrate 50 MG TAB PO SCH ×2 (10:13→20:54)
[2020-09-07] MEDS: Azithromycin 500 MG in Sodium Chloride 0.9% 250 ML 250 ML IVPB SCH (11:05)
[2020-09-07] MEDS: Lorazepam 2 MG/ML VIAL SLOW IVP PRN (15:42)
[2020-09-07] MEDS ORDERED: Dextrose 5% w/ 20 mEq KCl 1,000 ML IV SCH (15:45)
--- NOTE | 2020-09-07 15:46 | PDOC.HOSPP ---
- Subjective Encounter Date: 09/07/20 Encounter Time: 11:55 Subjective: Patient in a supine position. He is still on vent. Blood sugar is better. Urine output improved.Sodium trending up - Objective Vital Signs & Weight: Vital Signs (12 hours) Temp Pulse Resp BP Pulse Ox 09/07/20 14:53 60 09/07/20 14:00 24 H 09/07/20 12:20 78 09/07/20 12:00 96.8 F L 24 H 09/07/20 10:00 24 H 09/07/20 08:49 53 L 146/81 H 09/07/20 08:03 59 L 09/07/20 08:00 24 H 09/07/20 07:45 100 09/07/20 07:00 98 F 09/07/20 05:00 98.8 F Weight Admit Weight 234 lb 8 oz Weight 229 lb 0.964 oz Most Recent Monitor Data Heart Rate from ECG 62 NIBP 137/72 NIBP BP-Mean 93 Respiration from ECG 24 SpO2 98 I&O: 09/06/20 09/07/20 09/08/20 06:59 06:59 06:59 Intake Total 3306.9 3441.7 420 Output Total 900 1570 515 Balance 2406.9 1871.7 -95 Result Diagrams: 09/07/20 03:40 09/07/20 03:40 Additional Labs: Accuchecks 09/07/20 09/06/20 09/06/20 09:32 21:27 16:54 POC Glucose 142 H 167 H 189 H Hospitalist ROS - Medication Medications: Active Medications Generic Name Dose Route Start Last Admin Trade Name Yeyo PRN Reason Stop Dose Admin Acetaminophen 650 mg 08/29/20 16:11 09/02/20 21:39 Acetaminophen 325 Mg Tab PO 650 mg Q4H PRN Administration Headache/Fever/Mild Pain (1-3) Amlodipine Besylate 5 mg 08/31/20 09:00 09/07/20 08:49 Amlodipine 5 Mg Tab PO 5 mg DAILY [facility] Administration Ascorbic Acid 1,000 mg 09/03/20 09:00 09/07/20 08:48 Ascorbic Acid 500 Mg Chewable Tablet PO 1,000 mg DAILY MEREDITH Administration Aspirin 81 mg 08/30/20 09:00 09/07/20 08:49 Aspirin 81 Mg Enteric Coated Tablet PO 81 mg DAILY MERED[facility] Administration Cholecalciferol 400 units 09/03/20 09:00 09/07/20 08:48 Cholecalciferol (Vitamin D3) 400 Units Tab PO 400 units DAILY MERED[facility] Administration Clopidogrel Bisulfate 75 mg 08/30/20 09:00 09/07/20 08:49 Clopidogrel Bisulfate 75 Mg Tab PO 75 mg DAILY [facility] Administration Enoxaparin Sodium 70 mg 09/02/20 09:00 09/07/20 08:50 Enoxaparin Sodium 80 Mg/0.8 Ml Syringe SC 70 mg 899,2099 MEREDITH Administration Famotidine 20 mg 08/29/20 21:00 09/07/20 08:49 Famotidine 20 Mg Tab PO 20 mg BID MEREDITH Administration Hydrocortisone Sodium Succinate 50 mg 09/06/20 10:45 09/07/20 11:05 Hydrocortisone Sod Succ/Pf 100 Mg/2 Ml Vial IVP 50 mg Q6HR MEREDITH Administration Ceftriaxone Sodium 1 gm/ 100 mls @ 200 mls/hr 08/31/20 21:00 09/06/20 20:44 Sodium Chloride IVPB 100 mls 2100 MEREDITH Administration Azithromycin 500 mg/ Sodium 250 mls @ 250 mls/hr 09/02/20 11:00 09/07/20 11:05 Chloride IVPB 250 mls Q24HR MEREDITH Administration Nicardipine HCl 50 mg/ Sodium 250 mls @ 0 mls/hr 09/03/20 09:15 09/04/20 03:17 Chloride IV 250 mls INF MEREDITH Administration Protocol As Directed Dexmedetomidine HCl 400 mcg/ 100 mls @ 0 mls/hr 09/03/20 15:00 09/04/20 06:01 Sodium Chloride IVPB 100 mls INF MEREDITH Administration Protocol Titrate Fentanyl Citrate 2,000 mcg/ 100 mls @ 0 mls/hr 09/04/20 10:30 09/06/20 20:46 Sodium Chloride IV 10/04/20 10:30 100 mls INF MEREDITH Administration Protocol Per Protocol Insulin Human Lispro 0 units 08/29/20 16:11 09/06/20 17:00 Humalog 300 Units/3 Ml Vial SC 2 unit .MODERATE SLIDING SC PRN Administration Moderate Correctional Scale Insulin Human Lispro 0 units 08/29/20 16:11 09/05/20 22:55 Humalog 300 Units/3 Ml Vial SC 3 unit .BEDTIME SLIDING SC PRN Administration Bedtime Correctional Scale Insulin Human NPH 60 unit 09/06/20 10:45 09/07/20 09:23 Nph, Human Insulin Isophane 300 Unit/3 Ml Vial SC 60 unit BID MEREDITH Administration Isosorbide Mononitrate 30 mg 08/30/20 09:00 09/07/20 08:49 Isosorbide Mononitrate Er 30 Mg Tab PO 30 mg DAILY [facility] Administration Labetalol HCl 20 mg 08/31/20 19:08 09/03/20 05:13 Labetalol Hcl 100 Mg/20 Ml Vial SLOW IVP 20 mg Q4H PRN Administration SBP Greater Than 180 Lorazepam 2 mg 09/04/20 10:30 09/07/20 15:42 Lorazepam 2 Mg/Ml Vial SLOW IVP 10/04/20 10:30 2 mg Q1H PRN Administration Breakthrough agitation Metoprolol Tartrate 50 mg 08/30/20 09:00 09/07/20 10:13 Metoprolol Tartrate 50 Mg Tab PO Not Given BID MEREDITH Montelukast Sodium 10 mg 08/30/20 09:00 09/07/20 08:49 Montelukast Sodium 10 Mg Tablet PO 10 mg DAILY [facility] Administration Propofol 1,000 mg 09/04/20 10:30 09/07/20 15:41 Propofol 1,000 Mg/100 Ml Vial IV 10/04/20 10:30 1,000 mg INF PRN Administration TO ACHIEVE GOAL RASS Protocol Sodium Chloride 10 ml 09/02/20 21:00 09/07/20 11:05 Flush - Normal Saline 10 Ml Syringe IVF 10 ml Q12HR [facility] Administration Tamsulosin HCl 0.4 mg 08/30/20 09:00 09/07/20 08:49 Tamsulosin Hcl 0.4 Mg Cap PO 0.4 mg DAILY [facility] Administration Vecuronium [place] 10 mg 09/04/20 10:01 09/06/20 15:00 Vecuronium 10 Mg Vial IVP 10 mg Q30MIN PRN Administration Agitation Zinc Sulfate 220 mg 09/03/20 09:00 09/07/20 08:49 Zinc Sulfate 220 Mg Cap PO 220 mg DAILY [facility] Administration - Exam General Appearance: ill appearing General - other findings: on vent Gastrointestinal: normal bowel sounds Hosp A/P - Plan Acute hypoxic respiratory failure likely from COVID pneumonia - chest x ray shows bilateral and interstitial alveolar opacities. Received home lasix 40 mg TID, will hold for now due to hypokalemia/hyponatremia. He is COVID+ -IV ceftriaxone and Zithromax. Since patient is quite confused and very low p.o. intake will put him on IV steroid once he is clinically stable then will switch him back to Decadron. -Ordered plasma infusion today. Metabolic encephalopathy -Acute stress of pneumonia and urinary tract infection -Correct underlying cause Syncope likely from Hypoglycemia - blood sugars improved. Now 160-200. He was taking NPH [address] home[address] brain negative - will continue sliding scale insulin and consider restarting long acting insulin gradualy - last A1C 6.3 -troponin indeterminate, cancel ECHO since COVID+ , consider outpatient ECHO Hypertension - continue imdur, metoprolol Hyponatremia - sodium 132, worsening. Will hold lasix CAD - continue aspirin and plavix UTI -Already on antibiotic -Urine culture ordered to follow the result.>>>>>>>>>>>>>>>>> culture grew next damaris/contaminant hard of hearing 4th Type 2 diabetes Hyperglycemia, steroid-induced pre-existing diabetes --- Schedule low-dose insulin in addition to sliding scale -Follow-up on A1c Acute hypoxic respiratory failure; acute desats due to pulling his oxygen suppl ement. Metabolic encephalopathy probably due to COVID pneumonia and/or steroid-induced -Currently he is on BiPAP. -His IV steroid has been discontinued. Urine culture mixed skin damaris. 5th Ongoing hypoxic respiratory failure requiring BiPAP. COVID pneumonia -Inflammatory markers are high as CRP is 5.3 and ferritin is 979. Will check these markers intermittently and follow the clinical progression. Accelerated hypertension requiring Cardene drip Uncontrolled type 2 diabetes mellitus with A1c of 8.0. -Scheduled insulin as well as sliding scale given the blood glucose over 300 range 6th Worsening COVID pneumonia requiring intubation -Inflammatory markers persistently high. -Enoxaparin twice a day dose along with IV steroid zinc ceftriaxone and Zithromax Leukocytosis -Usually leukopenia with coVId -covered with antibiotics. -Urine culture grew mixed damaris Uncontrolled type 2 diabetes mellitus with A1c of 8.0. And steroid-induced hyperglycemia -Insulin dose switched from Lantus to NPH 20 units twice daily. Prognosis guarded. Patient full code Appreciate palliative care involvement. Consult placed. 7th today's chest x-ray shows bilateral infiltrate that is more extensive on the left side. Hyperglycemia with a type 2 diabetes mellitus He has uncontrolled blood glucose. Insulin dose is increased. Hypernatremia - will be starting on of tube feed soon. -free water along with tube feed to correct the sodium to 200 mL every 4 hours as D5 would exacerbate his blood glucose level. 8th blood sugar is still requiring more insulin titration. Chest x-ray this mornin g shows bilateral infiltrate and no pneumothorax. He is currently on supine position in the vent. Since this 6:00 his urine output seems to be better at 375 mL so far. His sodium is slightly high at 148. He is getting free water. Will switch his IV infusions to D5 form. 9th Hypernatremia Will give short course of D5 in addition to free water with tube feed Blood glucose controlled with NPH at 60 units twice a day. Acute kidney injury -Creatinine has slight improvement. Continue with IV hydration as above. - Improved urine output.
[2020-09-07] MEDS: fentaNYL Citrate/PF 2,000 MCG in Sodium Chloride 0.9% 60 ML IV SCH (17:18)
[2020-09-07] MEDS: cefTRIAXone\\ROCEPHIN 1 GM in Sodium Chloride 0.9% 100 ML IVPB SCH (20:52)
[2020-09-07] MEDS: Dextrose 50% Abboject 50 ML SYRINGE SLOW IVP PRN ×2 (21:15→23:07)
[2020-09-08] MEDS: Propofol 1,000 MG/100 ML VIAL IV PRN ×6 (01:32→22:02)
[2020-09-08 04:57] LABS: #Eosinphils 0.1 thou/uL (0.0-0.7); #Monocytes 0.8 thou/uL (0.11-0.59); #Neutrophils 11.7 thou/uL (1.40-6.50); %Basophils 0.2 % (0.0-1.0); %Eosinophils 0.8 % (0.0-10.0); %Monocytes 5.5 % (0.0-10.0); %Neutrophils 86.5 % (42.0-75.0); Hemoglobin 12.6 g/dL (14.0-18.0); Mean Corpuscular HGB CONC 32.1 g/dL (32.0-36.0); Mean Corpuscular Hemoglobin 28.4 pg (27.0-31.0); Mean Corpuscular Volume 88.5 fL (78.0-98.0); Mean Platelet Volume 9.6 fL (7.4-10.4); Platelet Count 289 thou/uL (130-400); RBC Distribution Width 14.1 % (11.5-14.5); Red Blood Cell (RBC) Count 4.46 mill/uL (4.70-6.10); White Blood Cell (WBC) Count 13.6 thou/uL (4.8-10.8)
[2020-09-08 05:30] LABS: Anion Gap 14 mmol/L (10-20); BUN (Urea Nitrogen) 37 mg/dL (8.4-25.7); Calc. Creatinine Clearance 87 mL/min (70-130); Calcium 7.8 mg/dL (7.8-10.44); Carbon Dioxide 27 mmol/L (23-31); Chloride 111 mmol/L (98-107); Estimated GFR-MDRD 81; Glucose 194 mg/dL (83-110); Potassium 3.8 mmol/L (3.5-5.1); Sodium 148 mmol/L (136-145)
[2020-09-08] MEDS: Hydrocortisone Sod Succ/PF 100 mg/2 ml Vial IVP SCH ×3 (06:11→17:48)
[2020-09-08] MEDS: HumaLOG 300 UNITS/3 ML VIAL SC PRN ×4 (06:52→17:45)
[2020-09-08 07:39] LABS: Actual Bicarbonate (HCO3a) 26.2 mEq/L (22-28); Base Excess (BEa) 2.5 mEq/L (-2.0 to +3.0); CO2 Tension 37.3 mmHg (35.0-45.0); Calcium, Ionized (arterial) 1.12 mmol/L (1.12-1.30); Carboxyhemoglobin (COHb) 0.8 gm% (0.0-3.0); Hemoglobin (Hb) 13.3 g/dL (14.0-18.0); O2 Tension (PaO2), arterial 60.7 mmHg (> 70.0); pH, Arterial 7.46 (7.35-7.45)
[2020-09-08] MEDS: Enoxaparin Sodium 80 MG/0.8 ML SYRINGE SC SCH ×2 (08:14→19:53)
[2020-09-08] MEDS: Metoprolol Tartrate 50 MG TAB PO SCH ×2 (08:14→19:53)
[2020-09-08] MEDS: Famotidine 20 MG TAB PO SCH ×2 (08:15→19:53)
[2020-09-08] MEDS: Zinc Sulfate 220 MG CAP PO SCH (08:15)
[2020-09-08] MEDS: Tamsulosin HCl 0.4 MG CAP PO SCH (08:15)
[2020-09-08] MEDS: Aspirin 81 mg Enteric Coated Tablet PO SCH (08:15)
[2020-09-08 08:18] LABS: ALV-art Gradient 249.175 mmHg (0-20); Puncture Site RRAD
[2020-09-08] MEDS: Ascorbic Acid 500 mg Chewable Tablet PO SCH (08:18)
[2020-09-08] MEDS: Amlodipine 5 MG TAB PO SCH (08:18)
[2020-09-08] MEDS: Montelukast Sodium 10 mg Tablet PO SCH (08:18)
[2020-09-08] MEDS: Clopidogrel Bisulfate 75 MG TAB PO SCH (08:18)
[2020-09-08] MEDS: Cholecalciferol (Vitamin D3) 400 UNITS TAB PO SCH (08:19)
--- NOTE | 2020-09-08 08:27 | RAD ---
Chest one view HISTORY: Pneumonia. COMPARISON: 09/07/2020. FINDINGS: Cardiac silhouette is magnified and upper limits of normal in size. Pulmonary vasculature i s slightly engorged with widespread reticulonodular interstitial prominence. Mediastinum is midline. Postoperative changes. Lines and tubes are unchanged in position. No evidence of pneumothorax. IMPRESSION : Pulmonary vascular congestion and other findings are stable.
[2020-09-08] MEDS: NPH, Human Insulin Isophane 300 UNIT/3 ML VIAL SC SCH ×2 (09:41→20:45)
--- NOTE | 2020-09-08 10:37 | PRG ---
DATE OF SERVICE: 09/08/2020 SUBJECTIVE: Harsha Rey is a 74-year-old gentleman, who is day #7 in the ICU, intubated in the vent, sales positive pneumonia. His x-ray looks relatively stable today. OBJECTIVE: VITAL SIGNS: Pulse 81, blood pressure 131/81, temperature 97, 50% FiO2, sats 93%, respiratory rate 18. CHEST: Decreased breath sounds. No wheezing. CARDIAC: Normal S1, S2. No gallops. ABDOMEN: No masses. LABORATORY DATA: White count 13,000, H and H 12 and 39, platelet count is good. PO2 of 60, pCO2 rate of 24, 50%, PEEP of 12. Creatinine 1, BUN 37. IMPRESSION: 1. Sales positive pneumonia, on steroids. 2. Diabetes. 3. Mild azotemia. PLAN: Continue steroids. Continue vent. Supportive care, PT. He is probably going to need a trach and PEG sometime next week. Job ID: [id number]
[2020-09-08] MEDS: Azithromycin 500 MG in Sodium Chloride 0.9% 250 ML 250 ML IVPB SCH (11:37)
[2020-09-08] MEDS: fentaNYL Citrate/PF 2,000 MCG in Sodium Chloride 0.9% 60 ML IV SCH (12:14)
[2020-09-08] MEDS: Lorazepam 2 MG/ML VIAL SLOW IVP PRN ×2 (13:53→18:15)
--- NOTE | 2020-09-08 14:59 | PDOC.HOSPP ---
- Subjective Encounter Date: 09/08/20 Encounter Time: 12:00 Subjective: Patient still on vent on supine position blood glucose seems to be improved. He is on tube feed. His white count is trending down as well as blood glucose. - Objective Vital Signs & Weight: Vital Signs (12 hours) Temp Pulse Resp BP Pulse Ox 09/08/20 12:00 97.7 F 25 H 09/08/20 10:13 81 09/08/20 10:00 23 H 09/08/20 08:18 60 139/81 09/08/20 08:17 60 09/08/20 08:00 97.1 F L 24 H 95 09/08/20 06:00 24 H 09/08/20 04:52 69 09/08/20 04:00 97.9 F 24 H Weight Admit Weight 234 lb 8 oz Weight 229 lb 4.492 oz Most Recent Monitor Data Heart Rate from ECG 91 NIBP 170/83 NIBP BP-Mean 112 Respiration from ECG 25 SpO2 93 I&O: 09/07/20 09/08/20 09/09/20 06:59 06:59 06:59 Intake Total 3441.7 4200.4 560 Output Total 1570 1405 425 Balance 1871.7 2795.4 135 Result Diagrams: 09/08/20 04:17 09/08/20 04:17 Additional Labs: Accuchecks 09/08/20 09/08/20 09/08/20 12:29 10:00 06:24 POC Glucose 238 H 174 H 155 H 09/08/20 09/08/20 09/08/20 03:41 01:43 00:04 POC Glucose 141 H 130 H 143 H 09/07/20 15:54 POC Glucose 85 Hospitalist ROS - Medication Medications: Active Medications Generic Name Dose Route Start Last Admin Trade Name Freq PRN Reason Stop Dose Admin Acetaminophen 650 mg 08/29/20 16:11 09/02/20 21:39 Acetaminophen 325 Mg Tab PO 650 mg Q4H PRN Administration Headache/Fever/Mild Pain (1-3) Amlodipine Besylate 5 mg 08/31/20 09:00 09/08/20 08:18 Amlodipine 5 Mg Tab PO 5 mg DAILY [facility] Administration Ascorbic Acid 1,000 mg 09/03/20 09:00 09/08/20 08:18 Ascorbic Acid 500 Mg Chewable Tablet PO 1,000 mg DAILY [facility] Administration Aspirin 81 mg 08/30/20 09:00 09/08/20 08:15 Aspirin 81 Mg Enteric Coated Tablet PO 81 mg DAILY [facility] Administration Cholecalciferol 400 units 09/03/20 09:00 09/08/20 08:19 Cholecalciferol (Vitamin D3) 400 Units Tab PO 400 units DAILY [facility]ED[facility] Administration Clopidogrel Bisulfate 75 mg 08/30/20 09:00 09/08/20 08:18 Clopidogrel Bisulfate 75 Mg Tab PO 75 mg DAILY [facility] Administration Dextrose/Water 25 gm 08/29/20 16:11 09/07/20 23:07 Dextrose 50% Abboject 50 Ml Syringe SLOW IVP 25 gm PRN PRN Administration Hypoglycemia Enoxaparin Sodium 70 mg 09/02/20 09:00 09/08/20 08:14 Enoxaparin Sodium 80 Mg/0.8 Ml Syringe SC 70 mg 09,2100 MERED[facility] Administration Famotidine 20 mg 08/29/20 21:00 09/08/20 08:15 Famotidine 20 Mg Tab PO 20 mg BID MEREDITH Administration Hydrocortisone Sodium Succinate 50 mg 09/06/20 10:45 09/08/20 12:14 Hydrocortisone Sod Succ/Pf 100 Mg/2 Ml Vial IVP 50 mg Q6HR MERED[facility] Administration Ceftriaxone Sodium 1 gm/ 100 mls @ 200 mls/hr 08/31/20 21:00 09/07/20 20:52 Sodium Chloride IVPB 100 mls 2100 MEREDITH Administration Azithromycin 500 mg/ Sodium 250 mls @ 250 mls/hr 09/02/20 11:00 09/08/20 11:37 Chloride IVPB 250 mls Q24HR [facility]ED[facility] Administration Nicardipine HCl 50 mg/ Sodium 250 mls @ 0 mls/hr 09/03/20 09:15 09/04/20 03:17 Chloride IV 250 mls INF MEREDITH Administration Protocol As Directed Dexmedetomidine HCl 400 mcg/ 100 mls @ 0 mls/hr 09/03/20 15:00 09/04/20 06:01 Sodium Chloride IVPB 100 mls INF MERED[facility] Administration Protocol Titrate Fentanyl Citrate 2,000 mcg/ 100 mls @ 0 mls/hr 09/04/20 10:30 09/08/20 12:14 Sodium Chloride IV 10/04/20 10:30 100 mls INF MERED[facility] Administration Protocol Per Protocol Insulin Human Lispro 0 units 08/29/20 16:11 09/08/20 12:56 Humalog 300 Units/3 Ml Vial SC 4 unit .MODERATE SLIDING SC PRN Administration Moderate Correctional Scale Insulin Human Lispro 0 units 08/29/20 16:11 09/05/20 22:55 Humalog 300 Units/3 Ml Vial SC 3 unit .BEDTIME SLIDING SC PRN Administration Bedtime Correctional Scale Insulin Human NPH 60 unit 09/06/20 10:45 09/08/20 09:41 Nph, Human Insulin Isophane 300 Unit/3 Ml Vial SC 60 unit BID MEREDITH Administration Isosorbide Mononitrate 30 mg 08/30/20 09:00 09/08/20 08:14 Isosorbide Mononitrate Er 30 Mg Tab PO 30 mg DAILY MERED[facility] Administration Labetalol HCl 20 mg 08/31/20 19:08 09/03/20 05:13 Labetalol Hcl 100 Mg/20 Ml Vial SLOW IVP 20 mg Q4H PRN Administration SBP Greater Than 180 Lorazepam 2 mg 09/04/20 10:30 09/08/20 13:53 Lorazepam 2 Mg/Ml Vial SLOW IVP 10/04/20 10:30 2 mg Q1H PRN Administration Breakthrough agitation Metoprolol Tartrate 50 mg 08/30/20 09:00 09/08/20 08:14 Metoprolol Tartrate 50 Mg Tab PO Not Given BID MEREDITH Montelukast Sodium 10 mg 08/30/20 09:00 09/08/20 08:18 Montelukast Sodium 10 Mg Tablet PO 10 mg DAILY [facility]ED[facility] Administration Propofol 1,000 mg 09/04/20 10:30 09/08/20 13:54 Propofol 1,000 Mg/100 Ml Vial IV 10/04/20 10:30 1,000 mg INF PRN Administration TO ACHIEVE GOAL RASS Protocol Sodium Chloride 10 ml 09/02/20 21:00 09/08/20 09:42 Flush - Normal Saline 10 Ml Syringe IVF 10 ml Q12HR MEREDITH Administration Tamsulosin HCl 0.4 mg 08/30/20 09:00 09/08/20 08:15 Tamsulosin Hcl 0.4 Mg Cap PO 0.4 mg DAILY MERED[facility] Administration Vecuronium [place] 10 mg 09/04/20 10:01 09/06/20 15:00 Vecuronium 10 Mg Vial IVP 10 mg Q30MIN PRN Administration Agitation Zinc Sulfate 220 mg 09/03/20 09:00 09/08/20 08:15 Zinc Sulfate 220 Mg Cap PO 220 mg DAILY MERED[facility] Administration - Exam General - other findings: On vent Eye: PERRL Hosp A/P - Plan Please see my previous progress notes for more details this is a consolidated 1. Acute hypoxic respiratory failure likely from COVID pneumonia On vent - chest x ray shows bilateral and interstitial alveolar opacities. Received home lasix 40 mg TID, will hold for now due to hypokalemia/hyponatremia. He is COVID+ -IV ceftriaxone and Zithromax. Metabolic encephalopathy -Acute stress of pneumonia and urinary tract infection -Correct underlying cause UTI -Already on antibiotic -Urine culture ordered to follow the result.>>>>>>>>>>>>>>>>> culture grew next damaris/contaminant Acute hypoxic respiratory failure; acute desats due to pulling his oxygen supplement. Metabolic encephalopathy probably due to COVID pneumonia and/or steroid-induced -Currently he is on BiPAP. -His IV steroid has been discontinued. Hypernatremia - tube feed -free water along with tube feed to correct the sodium to 200 mL every 4 hours as D5 would exacerbate his blood glucose level. Acute kidney injury -Creatinine has slight improvement. Continue with IV hydration as above. - Improved urine output. Hyperglycemia Type 2 diabetes mellitus and A1c of 8.0 -On scheduled insulin as well as sliding scale. -Possible evaluation for PEG and trach next week per pulmonary.
[2020-09-08] MEDS: cefTRIAXone\\ROCEPHIN 1 GM in Sodium Chloride 0.9% 100 ML IVPB SCH (19:51)
[2020-09-08] MEDS: Vecuronium 10 MG VIAL IVP PRN (19:52)
[2020-09-08] MEDS: Labetalol HCl 100 MG/20 ML VIAL SLOW IVP PRN (21:15)
[2020-09-08 21:30] LABS: Actual Bicarbonate (HCO3a) 27.3 mEq/L (22-28); Base Excess (BEa) 1.7 mEq/L (-2.0 to +3.0); CO2 Tension 46.6 mmHg (35.0-45.0); Calcium, Ionized (arterial) 1.14 mmol/L (1.12-1.30); Carboxyhemoglobin (COHb) 0.8 gm% (0.0-3.0); Hemoglobin (Hb) 13.2 g/dL (14.0-18.0); Potassium - ABG Lab 3.69 mmol/L (3.70-5.30); pH, Arterial 7.39 (7.35-7.45)
[2020-09-08 21:32] LABS: O2 Tension (PaO2), arterial 38.9 mmHg (> 70.0); Puncture Site R RADIAL
--- NOTE | 2020-09-08 22:21 | RAD ---
XR Chest 1 View Portable History: Ventilated patient Comparison: Radiograph same day Findings: Extensive airspace opacities throughout the lungs. Large effusions. Endotracheal tube tip a shanda the jaylyn 3.1 cm. Enteric tube tip below diaphragm although out of field of view. Impression: Slight worsening airspace opacities and enlarging pleural effusions.
[2020-09-09] MEDS: Propofol 1,000 MG/100 ML VIAL IV PRN ×6 (02:19→21:51)
[2020-09-09] MEDS: HumaLOG 300 UNITS/3 ML VIAL SC PRN ×2 (04:10→17:26)
[2020-09-09 04:54] LABS: Anion Gap 12 mmol/L (10-20); BUN (Urea Nitrogen) 30 mg/dL (8.4-25.7); Calc. Creatinine Clearance 92 mL/min (70-130); Calcium 7.6 mg/dL (7.8-10.44); Carbon Dioxide 28 mmol/L (23-31); Chloride 107 mmol/L (98-107); Estimated GFR-MDRD 86; Glucose 202 mg/dL (83-110); Sodium 143 mmol/L (136-145)
[2020-09-09 05:04] LABS: Band 7 % (5-11); Hemoglobin 11.7 g/dL (14.0-18.0); Lymphocytes 6 % (21-51); MDiff Complete? YES; Mean Corpuscular HGB CONC 31.7 g/dL (32.0-36.0); Mean Corpuscular Volume 88.1 fL (78.0-98.0); Mean Platelet Volume 9.9 fL (7.4-10.4); Monocytes 2 % (0-10); Neutrophil 85 % (42-75); Nucleated RBC 1 % (0); Platelet Count 285 thou/uL (130-400); RBC Distribution Width 14.1 % (11.5-14.5); Red Blood Cell (RBC) Count 4.19 mill/uL (4.70-6.10); White Blood Cell (WBC) Count 14.8 thou/uL (4.8-10.8)
[2020-09-09] MEDS: Hydrocortisone Sod Succ/PF 100 mg/2 ml Vial IVP SCH ×4 (05:22→16:45)
[2020-09-09] MEDS: Vecuronium 10 MG VIAL IVP PRN ×5 (05:22→22:16)
[2020-09-09 07:28] LABS: Actual Bicarbonate (HCO3a) 29.1 mEq/L (22-28); Base Excess (BEa) 2.1 mEq/L (-2.0 to +3.0); CO2 Tension 54.5 mmHg (35.0-45.0); Calcium, Ionized (arterial) 1.17 mmol/L (1.12-1.30); Carboxyhemoglobin (COHb) 1.3 gm% (0.0-3.0); Hemoglobin (Hb) 15.7 g/dL (14.0-18.0); Potassium - ABG Lab 3.88 mmol/L (3.70-5.30); pH, Arterial 7.35 (7.35-7.45)
[2020-09-09] MEDS: fentaNYL Citrate/PF 2,000 MCG in Sodium Chloride 0.9% 60 ML IV SCH (07:50)
[2020-09-09] MEDS: Enoxaparin Sodium 80 MG/0.8 ML SYRINGE SC SCH ×2 (07:51→21:05)
[2020-09-09] MEDS: Tamsulosin HCl 0.4 MG CAP PO SCH (07:52)
[2020-09-09] MEDS: Ascorbic Acid 500 mg Chewable Tablet PO SCH (07:52)
[2020-09-09] MEDS: Amlodipine 5 MG TAB PO SCH (07:53)
[2020-09-09] MEDS: Metoprolol Tartrate 50 MG TAB PO SCH ×2 (07:53→21:06)
[2020-09-09] MEDS: Famotidine 20 MG TAB PO SCH ×2 (07:53→21:05)
[2020-09-09] MEDS: Zinc Sulfate 220 MG CAP PO SCH (07:53)
[2020-09-09] MEDS: Montelukast Sodium 10 mg Tablet PO SCH (07:53)
[2020-09-09] MEDS: Clopidogrel Bisulfate 75 MG TAB PO SCH (07:53)
[2020-09-09] MEDS: Aspirin 81 mg Enteric Coated Tablet PO SCH (07:53)
[2020-09-09 07:54] LABS: O2 Tension (PaO2), arterial 47.9 mmHg (> 70.0)
[2020-09-09] MEDS: Cholecalciferol (Vitamin D3) 400 UNITS TAB PO SCH (07:54)
[2020-09-09 07:55] LABS: ALV-art Gradient 454.375 mmHg (0-20); Puncture Site RRAD
--- NOTE | 2020-09-09 07:55 | RAD ---
Chest one view HISTORY: Pneumonia. Follow-up. COMPARISON: 09/08/2020. FINDINGS: Cardiac silhouette is magnified and partially obscured by confluent airspace disease throug hout each lung that is similar in appearance to the prior study. Patient is rotated rightward. Hazy opacity at each base has the appearance of pleural fluid. Lines and tubes are unchanged in position. No evidence of pneumothorax. IMPRESSION : Diffuse airspace disease and other findings are stable.
[2020-09-09] MEDS: NPH, Human Insulin Isophane 300 UNIT/3 ML VIAL SC SCH ×2 (08:02→21:06)
--- NOTE | 2020-09-09 10:20 | PRG ---
DATE OF SERVICE: 09/09/2020 SUBJECTIVE: Harsha Rey is a 74-year-old gentleman, who had an episode of severe hypoxemia last night. Emergency chest x-ray taken showed no pneumothorax, diffuse infiltrates. He is sedated and intubated. OBJECTIVE: VITAL SIGNS: His blood pressure is 136/54, pulse 84, his saturations are 90% on 80% FiO2 and 13 of PEEP. His temperature is 98. CHEST: Bilateral rhonchi, crackles. CARDIAC: Sinus tach. ABDOMEN: Soft. LABORATORY DATA: His white count is 14,000, H and H 11 and 36. PO2 is 47, pCO2 is 54, pH on a bilevel. BUN and creatinine, otherwise unremarkable. ASSESSMENT AND PLAN: 1. Acute respiratory distress syndrome, respiratory failure, sales positive pneumonia. 2. Diabetes . He is clearly not weanable at this stage. He is probably going to require trach and a PEG. He is on antibiotic, ceftriaxone empirically. So far cultures are negative. He is on steroids, neb treatments, supportive care. TIME SPENT: One-half hour of critical time. Job ID: [id number]
[2020-09-09] MEDS: Lorazepam 2 MG/ML VIAL SLOW IVP PRN ×4 (10:40→18:32)
--- NOTE | 2020-09-09 12:23 | PDOC.HOSPP ---
- Objective Vital Signs & Weight: Vital Signs (12 hours) Temp Pulse Resp BP Pulse Ox 09/09/20 12:00 30 H 09/09/20 11:00 99.5 F 09/09/20 10:24 88 09/09/20 10:00 29 H 09/09/20 08:00 98.1 F 27 H 94 L 09/09/20 07:55 96 09/09/20 07:53 81 193/102 H 09/09/20 06:00 18 09/09/20 04:26 81 09/09/20 04:00 99.4 F 25 H 09/09/20 02:00 25 H 09/09/20 01:21 82 132/66 Weight Admit Weight 234 lb 8 oz Weight 229 lb 4.492 oz Most Recent Monitor Data Heart Rate from ECG 87 NIBP 136/70 NIBP BP-Mean 92 Respiration from ECG 30 SpO2 92 I&O: 09/08/20 09/09/20 09/10/20 06:59 06:59 06:59 Intake Total 4200.4 4336.1 180 Output Total 1405 1840 425 Balance 2795.4 2496.1 -245 Result Diagrams: 09/09/20 03:57 09/09/20 03:57 Additional Labs: Accuchecks 09/09/20 09/09/20 09/08/20 11:12 04:04 20:34 POC Glucose 164 H 194 H 184 H 09/08/20 12:29 POC Glucose 238 H Hospitalist ROS - Medication Medications: Active Medications Generic Name Dose Route Start Last Admin Trade Name Freq PRN Reason Stop Dose Admin Acetaminophen 650 mg 08/29/20 16:11 09/02/20 21:39 Acetaminophen 325 Mg Tab PO 650 mg Q4H PRN Administration Headache/Fever/Mild Pain (1-3) Amlodipine Besylate 5 mg 08/31/20 09:00 09/09/20 07:53 Amlodipine 5 Mg Tab PO 5 mg DAILY [facility] Administration Ascorbic Acid 1,000 mg 09/03/20 09:00 09/09/20 07:52 Ascorbic Acid 500 Mg Chewable Tablet PO 1,000 mg DAILY MERED[facility] Administration Aspirin 81 mg 08/30/20 09:00 09/09/20 07:53 Aspirin 81 Mg Enteric Coated Tablet PO 81 mg DAILY MEREDITH Administration Cholecalciferol 400 units 09/03/20 09:00 09/09/20 07:54 Cholecalciferol (Vitamin D3) 400 Units Tab PO 400 units DAILY MEREDITH Administration Clopidogrel Bisulfate 75 mg 08/30/20 09:00 09/09/20 07:53 Clopidogrel Bisulfate 75 Mg Tab PO 75 mg DAILY MEREDITH Administration Dextrose/Water 25 gm 08/29/20 16:11 09/07/20 23:07 Dextrose 50% Abboject 50 Ml Syringe SLOW IVP 25 gm PRN PRN Administration Hypoglycemia Enoxaparin Sodium 70 mg 09/02/20 09:00 09/09/20 07:51 Enoxaparin Sodium 80 Mg/0.8 Ml Syringe SC 70 mg 0900,2100 MEERDITH Administration Famotidine 20 mg 08/29/20 21:00 09/09/20 07:53 Famotidine 20 Mg Tab PO 20 mg BID MEREDITH Administration Hydrocortisone Sodium Succinate 50 mg 09/06/20 10:45 09/09/20 05:22 Hydrocortisone Sod Succ/Pf 100 Mg/2 Ml Vial IVP 50 mg Q6HR MEREDITH Administration Ceftriaxone Sodium 1 gm/ 100 mls @ 200 mls/hr 08/31/20 21:00 09/08/20 19:51 Sodium Chloride IVPB 100 mls 2100 MEREDITH Administration Nicardipine HCl 50 mg/ Sodium 250 mls @ 0 mls/hr 09/03/20 09:15 09/04/20 03:17 Chloride IV 250 mls INF MEREDITH Administration Protocol As Directed Dexmedetomidine HCl 400 mcg/ 100 mls @ 0 mls/hr 09/03/20 15:00 09/04/20 06:01 Sodium Chloride IVPB 100 mls INF MEREDITH Administration Protocol Titrate Fentanyl Citrate 2,000 mcg/ 100 mls @ 0 mls/hr 09/04/20 10:30 09/09/20 07:50 Sodium Chloride IV 10/04/20 10:30 100 mls INF MEREDITH Administration Protocol Per Protocol Insulin Human Lispro 0 units 08/29/20 16:11 09/09/20 04:10 Humalog 300 Units/3 Ml Vial SC 2 unit .MODERATE SLIDING SC PRN Administration Moderate Correctional Scale Insulin Human Lispro 0 units 08/29/20 16:11 09/05/20 22:55 Humalog 300 Units/3 Ml Vial SC 3 unit .BEDTIME SLIDING SC PRN Administration Bedtime Correctional Scale Insulin Human NPH 60 unit 09/06/20 10:45 09/09/20 08:02 Nph, Human Insulin Isophane 300 Unit/3 Ml Vial SC 60 unit BID MEREDITH Administration Isosorbide Mononitrate 30 mg 08/30/20 09:00 09/09/20 07:52 Isosorbide Mononitrate Er 30 Mg Tab PO 30 mg DAILY [facility] Administration Labetalol HCl 20 mg 08/31/20 19:08 09/08/20 21:15 Labetalol Hcl 100 Mg/20 Ml Vial SLOW IVP 20 mg Q4H PRN Administration SBP Greater Than 180 Lorazepam 2 mg 09/04/20 10:30 09/09/20 10:40 Lorazepam 2 Mg/Ml Vial SLOW IVP 10/04/20 10:30 2 mg Q1H PRN Administration Breakthrough agitation Metoprolol Tartrate 50 mg 08/30/20 09:00 09/09/20 07:53 Metoprolol Tartrate 50 Mg Tab PO 50 mg BID MERED[facility] Administration Montelukast Sodium 10 mg 08/30/20 09:00 09/09/20 07:53 Montelukast Sodium 10 Mg Tablet PO 10 mg DAILY [facility] Administration Propofol 1,000 mg 09/04/20 10:30 09/09/20 07:52 Propofol 1,000 Mg/100 Ml Vial IV 10/04/20 10:30 1,000 mg INF PRN Administration TO ACHIEVE GOAL RASS Protocol Sodium Chloride 10 ml 09/02/20 21:00 09/09/20 07:55 Flush - Normal Saline 10 Ml Syringe IVF 10 ml Q12HR [facility]ED[facility] Administration Tamsulosin HCl 0.4 mg 08/30/20 09:00 09/09/20 07:52 Tamsulosin Hcl 0.4 Mg Cap PO 0.4 mg DAILY [facility] Administration Vecuronium [place] 10 mg 09/04/20 10:01 09/09/20 05:22 Vecuronium 10 Mg Vial IVP 10 mg Q30MIN PRN Administration Agitation Zinc Sulfate 220 mg 09/03/20 09:00 09/09/20 07:53 Zinc Sulfate 220 Mg Cap PO 220 mg DAILY [facility] Administration
--- NOTE | 2020-09-09 12:29 | PDOC.HOSPP ---
- Subjective Encounter Date: 09/09/20 Encounter Time: 10:00 Subjective: Patient seen and examined. No overnight events - Objective Vital Signs & Weight: Vital Signs (12 hours) Temp Pulse Resp BP Pulse Ox 09/09/20 12:00 30 H 09/09/20 11:00 99.5 F 09/09/20 10:24 88 09/09/20 10:00 29 H 09/09/20 08:00 98.1 F 27 H 94 L 09/09/20 07:55 96 09/09/20 07:53 81 193/102 H 09/09/20 06:00 18 09/09/20 04:26 81 09/09/20 04:00 99.4 F 25 H 09/09/20 02:00 25 H 09/09/20 01:21 82 132/66 Weight Admit Weight 234 lb 8 oz Weight 229 lb 4.492 oz Most Recent Monitor Data Heart Rate from ECG 87 NIBP 136/70 NIBP BP-Mean 92 Respiration from ECG 30 SpO2 92 I&O: 09/08/20 09/09/20 09/10/20 06:59 06:59 06:59 Intake Total 4200.4 4336.1 180 Output Total 1405 1840 425 Balance 2795.4 2496.1 -245 Result Diagrams: 09/09/20 03:57 09/09/20 03:57 Additional Labs: Accuchecks 09/08/20 04:17: Sodium 148 H, Chloride 111 H, BUN 37 H 09/08/20 04:17: WBC 13.6 H, RBC 4.46 L, Hgb 12.6 L, Hct 39.5 L, Neutrophils % 86.5 H, Lymphocytes % 7.0 L, Neutrophils # 11.7 H, Lymphocytes # 1.0 L, Monocytes # 0.8 H 09/08/20 07:32: ABG pH 7.46 H, ABG O2 Sat (Measured) 92.3 L, ABG O2 Content 17.1 L, ABG Hematocrit 39.0 L, ABG Hemoglobin 13.3 L, ABG Oxyhemoglobin 91.3 L, ABG Deoxyhemoglobin 7.6 H, A-a O2 Gradient 249.175 H, Chloride 113 H 09/08/20 21:22: ABG pCO2 46.6 H, ABG pO2 38.9 L*, ABG O2 Sat (Measured) 71.3 L*, ABG O2 Content 13.1 L, ABG Hematocrit 39.0 L, ABG Hemoglobin 13.2 L, ABG Oxyh emoglobin 70.5 L, ABG Deoxyhemoglobin 28.4 H, A-a O2 Gradient 330.650 H, Potassium 3.69 L, Chloride 110 H 09/09/20 03:57: BUN 30 H, Calcium 7.6 L 09/09/20 03:57: WBC 14.8 H, RBC 4.19 L, Hgb 11.7 L, Hct 36.9 L, MCHC 31.7 L, Neutrophils % (Manual) 85 H, Lymphocytes % (Manual) 6 L, Nucleated RBCs # (Man) 1 H 09/09/20 07:19: Bicarbonate Actual 29.1 H, ABG pCO2 54.5 H, ABG pO2 47.9 L*, ABG O2 Sat (Measured) 81.9 L*, ABG O2 Content 17.8 L, ABG Oxyhemoglobin 80.8 L, ABG Methemoglobin 0.00 L, ABG Deoxyhemoglobin 17.9 H, A-a O2 Gradient 454.375 H, Chloride 107 H Microbiology - Entire Visit 09/01/20 17:05 Urine voided Urine Culture - Final Radiology Reviewed by me: Yes EKG Reviewed by me: Yes Hospitalist ROS - Review of Systems ROS unobtainable: due to endotracheal tube - Medication Medications: Active Medications Generic Name Dose Route Start Last Admin Trade Name Freq PRN Reason Stop Dose Admin Acetaminophen 650 mg 08/29/20 16:11 09/02/20 21:39 Acetaminophen 325 Mg Tab PO 650 mg Q4H PRN Administration Headache/Fever/Mild Pain (1-3) Amlodipine Besylate 5 mg 08/31/20 09:00 09/09/20 07:53 Amlodipine 5 Mg Tab PO 5 mg DAILY MEREDITH Administration Ascorbic Acid 1,000 mg 09/03/20 09:00 09/09/20 07:52 Ascorbic Acid 500 Mg Chewable Tablet PO 1,000 mg DAILY MEREDITH Administration Aspirin 81 mg 08/30/20 09:00 09/09/20 07:53 Aspirin 81 Mg Enteric Coated Tablet PO 81 mg DAILY MEREDITH Administration Cholecalciferol 400 units 09/03/20 09:00 09/09/20 07:54 Cholecalciferol (Vitamin D3) 400 Units Tab PO 400 units DAILY MEREDITH Administration Clopidogrel Bisulfate 75 mg 08/30/20 09:00 09/09/20 07:53 Clopidogrel Bisulfate 75 Mg Tab PO 75 mg DAILY MEREDITH Administration Dextrose/Water 25 gm 08/29/20 16:11 09/07/20 23:07 Dextrose 50% Abboject 50 Ml Syringe SLOW IVP 25 gm PRN PRN Administration Hypoglycemia Enoxaparin Sodium 70 mg 09/02/20 09:00 09/09/20 07:51 Enoxaparin Sodium 80 Mg/0.8 Ml Syringe SC 70 mg 09,2099 MEREDITH Administration Famotidine 20 mg 08/29/20 21:00 09/09/20 07:53 Famotidine 20 Mg Tab PO 20 mg BID MEREDITH Administration Hydrocortisone Sodium Succinate 50 mg 09/06/20 10:45 09/09/20 05:22 Hydrocortisone Sod Succ/Pf 100 Mg/2 Ml Vial IVP 50 mg Q6HR MEREDITH Administration Ceftriaxone Sodium 1 gm/ 100 mls @ 200 mls/hr 08/31/20 21:00 09/08/20 19:51 Sodium Chloride IVPB 100 mls 2100 MEREDITH Administration Nicardipine HCl 50 mg/ Sodium 250 mls @ 0 mls/hr 09/03/20 09:15 09/04/20 03:17 Chloride IV 250 mls INF MEREDITH Administration Protocol As Directed Dexmedetomidine HCl 400 mcg/ 100 mls @ 0 mls/hr 09/03/20 15:00 09/04/20 06:01 Sodium Chloride IVPB 100 mls INF MEREDITH Administration Protocol Titrate Fentanyl Citrate 2,000 mcg/ 100 mls @ 0 mls/hr 09/04/20 10:30 09/09/20 07:50 Sodium Chloride IV 10/04/20 10:30 100 mls INF MEREDITH Administration Protocol Per Protocol Insulin Human Lispro 0 units 08/29/20 16:11 09/09/20 04:10 Humalog 300 Units/3 Ml Vial SC 2 unit .MODERATE SLIDING SC PRN Administration Moderate Correctional Scale Insulin Human Lispro 0 units 08/29/20 16:11 09/05/20 22:55 Humalog 300 Units/3 Ml Vial SC 3 unit .BEDTIME SLIDING SC PRN Administration Bedtime Correctional Scale Insulin Human NPH 60 unit 09/06/20 10:45 09/09/20 08:02 Nph, Human Insulin Isophane 300 Unit/3 Ml Vial SC 60 unit BID MEREDITH Administration Isosorbide Mononitrate 30 mg 08/30/20 09:00 09/09/20 07:52 Isosorbide Mononitrate Er 30 Mg Tab PO 30 mg DAILY MEREDITH Administration Labetalol HCl 20 mg 08/31/20 19:08 09/08/20 21:15 Labetalol Hcl 100 Mg/20 Ml Vial SLOW IVP 20 mg Q4H PRN Administration SBP Greater Than 180 Lorazepam 2 mg 09/04/20 10:30 09/09/20 10:40 Lorazepam 2 Mg/Ml Vial SLOW IVP 10/04/20 10:30 2 mg Q1H PRN Administration Breakthrough agitation Metoprolol Tartrate 50 mg 08/30/20 09:00 09/09/20 07:53 Metoprolol Tartrate 50 Mg Tab PO 50 mg BID MEREDITH Administration Montelukast Sodium 10 mg 08/30/20 09:00 09/09/20 07:53 Montelukast Sodium 10 Mg Tablet PO 10 mg DAILY MEREDITH Administration Propofol 1,000 mg 09/04/20 10:30 09/09/20 07:52 Propofol 1,000 Mg/100 Ml Vial IV 10/04/20 10:30 1,000 mg INF PRN Administration TO ACHIEVE GOAL RASS Protocol Sodium Chloride 10 ml 09/02/20 21:00 09/09/20 07:55 Flush - Normal Saline 10 Ml Syringe IVF 10 ml Q12HR MEREDITH Administration Tamsulosin HCl 0.4 mg 08/30/20 09:00 09/09/20 07:52 Tamsulosin Hcl 0.4 Mg Cap PO 0.4 mg DAILY MEREDITH Administration Vecuronium [place] 10 mg 09/04/20 10:01 09/09/20 05:22 Vecuronium 10 Mg Vial IVP 10 mg Q30MIN PRN Administration Agitation Zinc Sulfate 220 mg 09/03/20 09:00 09/09/20 07:53 Zinc Sulfate 220 Mg Cap PO 220 mg DAILY MEREDITH Administration - Exam General Appearance: NAD, ill appearing Eye: PERRL, anicteric sclera ENT: normocephalic atraumatic Heart: RRR, no murmur, no gallops Respiratory: no wheezes, no rales, no ronchi Gastrointestinal: soft, non-distended, normal bowel sounds Extremities: 2+ LE edema Skin: normal turgor, no lesions Hosp A/P (1) Acute hypoxemic respiratory failure due to COVID-19 Code(s): U07.1 - COVID-19; J96.01 - ACUTE RESPIRATORY FAILURE WITH HYPOXIA Status: Acute (2) Obesity (BMI 30-39.9) Code(s): E66.9 - OBESITY, UNSPECIFIED Status: Chronic (3) Diabetes mellitus Code(s): E11.9 - TYPE 2 DIABETES MELLITUS WITHOUT COMPLICATIONS Status: Chronic Qualifiers: Diabetes mellitus type: type 2 (4) Hypertension Code(s): I10 - ESSENTIAL (PRIMARY) HYPERTENSION Status: Chronic Qualifiers: Hypertension type: essential hypertension Qualified Code(s): I10 - Essential (primary) hypertension - Plan old records reviewed/req, continue antibiotics Continue ventilatory management as per pulmonology Medications reviewed and continued by symptomatic and supportive care
--- NOTE | 2020-09-09 20:59 | PDOC.EVN ---
Event Note - Event Note Event Note: Notified by RN, patient with temp of 101. Has not spiked a temp in a few days. Currently on Rocephin. Otherwise has been stable. He has had issues with bleeding from central line, requiring frequent dressing changes. Blood cultures ordered as well as UA/UCx. Tylenol will be given.
[2020-09-09] MEDS ORDERED: Acetaminophen 650 MG/20.3 ML UDCUP PO PRN (21:00)
[2020-09-09] MEDS: cefTRIAXone\\ROCEPHIN 1 GM in Sodium Chloride 0.9% 100 ML IVPB SCH (21:05)
[2020-09-09 22:08] LABS: Bilirubin Negative (Negative); Blood, Urine 2+ (Negative); Clarity Turbid (Clear); Glucose, Urine (Dipstick) Normal (Negative); Ketone, Urine Negative (Negative); Leukocyte 250 Leu/uL (Negative); Nitrite Negative (Negative); Protein, Urine (Dipstick) 70 mg/dL (Neg-Trace); RBC/HPF 21-50 HPF (0-3); Specific Gravity, Urine 1.023 (1.002-1.036); Squamous Epithelial 0-3 HPF (0-3); Urobilinogen Normal mg/dL (Less than 2); WBC/HPF 21-50 HPF (0-3); Yeast-Budding 2+ HPF (None Seen); Yeast-Hyphae 1+ HPF (None Seen); pH, Urine 5.5 (5.0-9.0)
[2020-09-09 22:19] LABS: Bacteria/HPF Rare-Few HPF (None Seen)
[2020-09-09 22:20] LABS: Urine Culture Reflex Yes Yes
[2020-09-09 22:36] LABS: Actual Bicarbonate (HCO3a) 28.5 mEq/L (22-28); Base Excess (BEa) 1.4 mEq/L (-2.0 to +3.0); CO2 Tension 56.9 mmHg (35.0-45.0); Calcium, Ionized (arterial) 1.11 mmol/L (1.12-1.30); Carboxyhemoglobin (COHb) 0.8 gm% (0.0-3.0); Hemoglobin (Hb) 12.4 g/dL (14.0-18.0); Potassium - ABG Lab 4.02 mmol/L (3.70-5.30); pH, Arterial 7.32 (7.35-7.45)
[2020-09-09 22:38] LABS: ALV-art Gradient 594.875 mmHg (0-20); Puncture Site L RADIAL
[2020-09-10] MEDS: Hydrocortisone Sod Succ/PF 100 mg/2 ml Vial IVP SCH ×5 (00:08→23:06)
[2020-09-10] MEDS: Propofol 1,000 MG/100 ML VIAL IV PRN ×5 (01:49→21:42)
[2020-09-10] MEDS: fentaNYL Citrate/PF 2,000 MCG in Sodium Chloride 0.9% 60 ML IV SCH ×2 (03:11→23:06)
[2020-09-10] MEDS: HumaLOG 300 UNITS/3 ML VIAL SC PRN ×3 (03:38→22:01)
[2020-09-10 04:57] LABS: Anion Gap 15 mmol/L (10-20); BUN (Urea Nitrogen) 33 mg/dL (8.4-25.7); Calc. Creatinine Clearance 67 mL/min (70-130); Calcium 7.8 mg/dL (7.8-10.44); Carbon Dioxide 28 mmol/L (23-31); Chloride 106 mmol/L (98-107); Estimated GFR-MDRD 60; Glucose 172 mg/dL (83-110); Sodium 144 mmol/L (136-145)
[2020-09-10 05:07] LABS: Band 23 % (5-11); Hemoglobin 11.3 g/dL (14.0-18.0); Lymphocytes 3 % (21-51); MDiff Complete? YES; Mean Corpuscular HGB CONC 31.7 g/dL (32.0-36.0); Mean Corpuscular Hemoglobin 28.2 pg (27.0-31.0); Mean Platelet Volume 10.1 fL (7.4-10.4); Monocytes 3 % (0-10); Neutrophil 71 % (42-75); Platelet Count 301 thou/uL (130-400); RBC Distribution Width 14.3 % (11.5-14.5); Red Blood Cell (RBC) Count 3.99 mill/uL (4.70-6.10); White Blood Cell (WBC) Count 22.5 thou/uL (4.8-10.8)
[2020-09-10 08:07] LABS: Actual Bicarbonate (HCO3a) 30.5 mEq/L (22-28); CO2 Tension 54.3 mmHg (35.0-45.0); Calcium, Ionized (arterial) 1.13 mmol/L (1.12-1.30); Carboxyhemoglobin (COHb) 0.7 gm% (0.0-3.0); Hemoglobin (Hb) 12.4 g/dL (14.0-18.0); pH, Arterial 7.37 (7.35-7.45)
[2020-09-10 08:08] LABS: O2 Tension (PaO2), arterial 52.4 mmHg (> 70.0); Puncture Site RRA
[2020-09-10 08:09] LABS: ALV-art Gradient 557.075 mmHg (0-20)
[2020-09-10] MEDS: Zinc Sulfate 220 MG CAP PO SCH (08:42)
[2020-09-10] MEDS: Tamsulosin HCl 0.4 MG CAP PO SCH (08:42)
[2020-09-10] MEDS: Famotidine 20 MG TAB PO SCH ×2 (08:42→21:41)
[2020-09-10] MEDS: Montelukast Sodium 10 mg Tablet PO SCH (08:42)
[2020-09-10] MEDS: Clopidogrel Bisulfate 75 MG TAB PO SCH (08:42)
[2020-09-10] MEDS: Metoprolol Tartrate 50 MG TAB PO SCH ×2 (08:42→21:41)
[2020-09-10] MEDS: Amlodipine 5 MG TAB PO SCH (08:42)
[2020-09-10] MEDS: Aspirin 81 mg Enteric Coated Tablet PO SCH (08:42)
[2020-09-10] MEDS: Cholecalciferol (Vitamin D3) 400 UNITS TAB PO SCH (08:42)
[2020-09-10] MEDS: Ascorbic Acid 500 mg Chewable Tablet PO SCH (08:43)
--- NOTE | 2020-09-10 08:49 | RAD ---
PORTABLE CHEST: Date: 09/10/2020 HISTORY: Pneumonia follow-up. COMPARISON: 09/09/2020. FINDINGS: Diffuse interstitial and alveolar infiltrates throughout both lungs again noted. Patient is rotated, which distorts the mediastinum. Postop sternotomy change. ET tube and NG tube in place. No significan t interval change apparent. IMPRESSION: Diffuse bilateral infiltrates without significant interval change. POS: OFF
[2020-09-10] MEDS: NPH, Human Insulin Isophane 300 UNIT/3 ML VIAL SC SCH ×2 (09:40→21:41)
--- NOTE | 2020-09-10 12:09 | PDOC.HOSPP ---
- Subjective Encounter Date: 09/10/20 Encounter Time: 10:30 Subjective: Patient seen and examined. No new complaints. No overnight events - Objective Vital Signs & Weight: Vital Signs (12 hours) Temp Pulse Resp BP 09/10/20 10:56 87 101/58 L 09/10/20 10:00 28 H 09/10/20 08:42 99 132/69 09/10/20 08:00 99.3 F 22 H 09/10/20 06:00 23 H 09/10/20 04:30 99 130/68 09/10/20 04:00 99.6 F 24 H 09/10/20 02:00 23 H 09/10/20 00:13 106 H 09/10/20 00:00 99.7 F H 18 Weight Admit Weight 234 lb 8 oz Weight 240 lb 15.444 oz Most Recent Monitor Data Heart Rate from ECG 88 NIBP 106/55 NIBP BP-Mean 72 Respiration from ECG 27 SpO2 96 I&O: 09/09/20 09/10/20 09/11/20 06:59 06:59 06:59 Intake Total 4336.1 2624.9 200 Output Total 1840 1655 425 Balance 2496.1 969.9 -225 Result Diagrams: 09/10/20 03:17 09/10/20 03:17 Additional Labs: Accuchecks 09/10/20 09/10/20 09/09/20 09:34 03:27 21:19 POC Glucose 168 H 172 H 179 H 09/09/20 09/07/20 09/07/20 17:09 22:58 21:20 POC Glucose 219 H 57 L* 33 L* EKG Reviewed by me: Yes Hospitalist ROS - Review of Systems Constitutional: denies: fever, chills, sweats, weakness, malaise, other ENT: denies: ear pain, ear discharge, nose pain, nose discharge, nose congestion, mouth pain, mouth swelling, throat pain, throat swelling, other Respiratory: denies: cough, dry, shortness of breath, hemoptysis, SOB with excertion, pleuritic pain, sputum, wheezing, other Cardiovascular: denies: chest pain, palpitations, orthopnea, paroxysmal noc. dyspnea, edema, light headedness, other Gastrointestinal: denies: nausea, vomiting, abdominal pain, diarrhea, constipation, melena, hematochezia, other Genitourinary: denies: dysuria, frequency, incontinence, hematuria, retention, other Musculoskeletal: denies: neck pain, shoulder pain, arm pain, back pain, hand pain, leg pain, foot pain, other Skin: denies: rash, lesions, nitesh, bruising, other - Medication Medications: Active Medications Generic Name Dose Route Start Last Admin Trade Name Freq PRN Reason Stop Dose Admin Acetaminophen 650 mg 09/09/20 21:00 09/09/20 21:05 Acetaminophen 650 Mg/20.3 Ml Udcup PO 650 mg Q4H PRN Administration Headache/Fever/Mild Pain (1-3) Amlodipine Besylate 5 mg 08/31/20 09:00 09/10/20 08:42 Amlodipine 5 Mg Tab PO 5 mg DAILY MEREDITH Administration Ascorbic Acid 1,000 mg 09/03/20 09:00 09/10/20 08:43 Ascorbic Acid 500 Mg Chewable Tablet PO 1,000 mg DAILY MEREDITH Administration Aspirin 81 mg 08/30/20 09:00 09/10/20 08:42 Aspirin 81 Mg Enteric Coated Tablet PO 81 mg DAILY MEREDITH Administration Cholecalciferol 400 units 09/03/20 09:00 09/10/20 08:42 Cholecalciferol (Vitamin D3) 400 Units Tab PO 400 units DAILY MEREDITH Administration Clopidogrel Bisulfate 75 mg 08/30/20 09:00 09/10/20 08:42 Clopidogrel Bisulfate 75 Mg Tab PO 75 mg DAILY MEREDITH Administration Dextrose/Water 25 gm 08/29/20 16:11 09/07/20 23:07 Dextrose 50% Abboject 50 Ml Syringe SLOW IVP 25 gm PRN PRN Administration Hypoglycemia Famotidine 20 mg 08/29/20 21:00 09/10/20 08:42 Famotidine 20 Mg Tab PO 20 mg BID MEREDITH Administration Hydrocortisone Sodium Succinate 50 mg 09/06/20 10:45 09/10/20 11:06 Hydrocortisone Sod Succ/Pf 100 Mg/2 Ml Vial IVP 50 mg Q6HR MEREDITH Administration Ceftriaxone Sodium 1 gm/ 100 mls @ 200 mls/hr 08/31/20 21:00 09/09/20 21:05 Sodium Chloride IVPB 100 mls 2100 MEREDITH Administration Nicardipine HCl 50 mg/ Sodium 250 mls @ 0 mls/hr 09/03/20 09:15 09/04/20 03:17 Chloride IV 250 mls INF MEREDITH Administration Protocol As Directed Dexmedetomidine HCl 400 mcg/ 100 mls @ 0 mls/hr 09/03/20 15:00 09/04/20 06:01 Sodium Chloride IVPB 100 mls INF MEREDITH Administration Protocol Titrate Fentanyl Citrate 2,000 mcg/ 100 mls @ 0 mls/hr 09/04/20 10:30 09/10/20 03:11 Sodium Chloride IV 10/04/20 10:30 100 mls INF MEREDITH Administration Protocol Per Protocol Insulin Human Lispro 0 units 08/29/20 16:11 09/10/20 03:38 Humalog 300 Units/3 Ml Vial SC 2 unit .MODERATE SLIDING SC PRN Administration Moderate Correctional Scale Insulin Human Lispro 0 units 08/29/20 16:11 09/05/20 22:55 Humalog 300 Units/3 Ml Vial SC 3 unit .BEDTIME SLIDING SC PRN Administration Bedtime Correctional Scale Insulin Human NPH 60 unit 09/06/20 10:45 09/09/20 21:06 Nph, Human Insulin Isophane 300 Unit/3 Ml Vial SC 60 unit BID MEREDITH Administration Isosorbide Mononitrate 30 mg 08/30/20 09:00 09/10/20 08:42 Isosorbide Mononitrate Er 30 Mg Tab PO 30 mg DAILY MEREDITH Administration Labetalol HCl 20 mg 08/31/20 19:08 09/08/20 21:15 Labetalol Hcl 100 Mg/20 Ml Vial SLOW IVP 20 mg Q4H PRN Administration SBP Greater Than 180 Lorazepam 2 mg 09/04/20 10:30 09/09/20 18:32 Lorazepam 2 Mg/Ml Vial SLOW IVP 10/04/20 10:30 2 mg Q1H PRN Administration Breakthrough agitation Metoprolol Tartrate 50 mg 08/30/20 09:00 09/10/20 08:42 Metoprolol Tartrate 50 Mg Tab PO 50 mg BID MEREDITH Administration Montelukast Sodium 10 mg 08/30/20 09:00 09/10/20 08:42 Montelukast Sodium 10 Mg Tablet PO 10 mg DAILY MEREDITH Administration Propofol 1,000 mg 09/04/20 10:30 09/10/20 08:56 Propofol 1,000 Mg/100 Ml Vial IV 10/04/20 10:30 1,000 mg INF PRN Administration TO ACHIEVE GOAL RASS Protocol Sodium Chloride 10 ml 09/02/20 21:00 09/10/20 08:43 Flush - Normal Saline 10 Ml Syringe IVF 10 ml Q12HR MEREDITH Administration Tamsulosin HCl 0.4 mg 08/30/20 09:00 09/10/20 08:42 Tamsulosin Hcl 0.4 Mg Cap PO 0.4 mg DAILY MEREDITH Administration Vecuronium [place] 10 mg 09/04/20 10:01 09/09/20 22:16 Vecuronium 10 Mg Vial IVP 10 mg Q30MIN PRN Administration Agitation Zinc Sulfate 220 mg 09/03/20 09:00 09/10/20 08:42 Zinc Sulfate 220 Mg Cap PO 220 mg DAILY MEREDITH Administration - Exam Eye: PERRL, anicteric sclera ENT: normocephalic atraumatic Neck: supple, symmetric, no JVD, no thyromegaly Heart: RRR, no murmur, no gallops, no rubs, normal peripheral pulses Respiratory: no wheezes, no rales, no ronchi Gastrointestinal: soft, non-distended, normal bowel sounds, no palpable masses, no hepatomegaly, no splenomegaly, no bruit Extremities: 1+ LE edema Skin: normal turgor, no lesions Psychiatric: normal behavior Hosp A/P (1) Acute hypoxemic respiratory failure due to COVID-19 Code(s): U07.1 - COVID-19; J96.01 - ACUTE RESPIRATORY FAILURE WITH HYPOXIA Status: Acute (2) Obesity (BMI 30-39.9) Code(s): E66.9 - OBESITY, UNSPECIFIED Status: Chronic (3) Diabetes mellitus Code(s): E11.9 - TYPE 2 DIABETES MELLITUS WITHOUT COMPLICATIONS Status: Chronic Qualifiers: Diabetes mellitus type: type 2 (4) Hypertension Code(s): I10 - ESSENTIAL (PRIMARY) HYPERTENSION Status: Chronic Qualifiers: Hypertension type: essential hypertension Qualified Code(s): I10 - Essential (primary) hypertension - Plan old records reviewed/req, continue antibiotics, respiratory therapy No overall change Continue ventilatory management as per pulmonology Medications reviewed and continued by symptomatic and supportive care
[2020-09-10] MEDS: Lorazepam 2 MG/ML VIAL SLOW IVP PRN (17:40)
--- NOTE | 2020-09-10 20:27 | PRG ---
DATE OF SERVICE: 09/10/2020 SUBJECTIVE: Mr. Rey remains mechanically ventilated. He started up today on 95% FiO2, but this was decreased slightly during the day. His hemodynamics have been stable. OBJECTIVE: VITAL SIGNS: Heart rate is 106, blood pressure is 133/69, respiratory rates in the teens. LUNGS: Unchanged. HEART: Unchanged. ABDOMEN: Unchanged. LABORATORY DATA: White count is 22.5, hemoglobin 11.3, platelets 301. Sodium 144, potassium 5, chloride 106, bicarb 28, BUN 33, creatinine 1.4. The pH is 7.37, pCO2 is 54, and pO2 is 52. IMPRESSION: Respiratory failure associated with COVID. PLAN: I had a long discussion with his son, Harsha, about end-of-life issues. He does not want his dad to have CPR should he succumb, but want to continue with aggressive care, sort of chest compressions and a code. I feel that this is perfectly reasonable at this time. It is unclear whether or not he will make a turn around, but hopefully we will start seeing slowly daily improvement. Today is day #12 of his hospitalization and his COVID apparently was an incidental finding when he presented to his family doctor with hypoglycemia. His insulin has been adjusted today. His insulin was actually held last night. We will continue with the critical care. CRITICAL CARE TIME: 30 minutes. Job ID: [id number]
[2020-09-10] MEDS: cefTRIAXone\\ROCEPHIN 1 GM in Sodium Chloride 0.9% 100 ML IVPB SCH (21:40)
[2020-09-11] MEDS: Propofol 1,000 MG/100 ML VIAL IV PRN ×6 (01:53→21:44)
[2020-09-11] MEDS: HumaLOG 300 UNITS/3 ML VIAL SC PRN ×2 (03:55→09:45)
[2020-09-11 04:29] LABS: Anion Gap 14 mmol/L (10-20); BUN (Urea Nitrogen) 55 mg/dL (8.4-25.7); Calc. Creatinine Clearance 50 mL/min (70-130); Calcium 8.1 mg/dL (7.8-10.44); Carbon Dioxide 28 mmol/L (23-31); Chloride 106 mmol/L (98-107); Estimated GFR-MDRD 40; Glucose 223 mg/dL (83-110); Sodium 144 mmol/L (136-145)
[2020-09-11 05:14] LABS: Band 16 % (5-11); Hemoglobin 10.1 g/dL (14.0-18.0); MDiff Complete? YES; Mean Corpuscular Hemoglobin 26.7 pg (27.0-31.0); Mean Platelet Volume 10.2 fL (7.4-10.4); Metamyelocyte 1 % (0-0); Monocytes 5 % (0-10); Myelocyte 1 % (0-0); Neutrophil 77 % (42-75); Platelet Count 303 thou/uL (130-400); RBC Distribution Width 14.2 % (11.5-14.5); Red Blood Cell (RBC) Count 3.78 mill/uL (4.70-6.10); White Blood Cell (WBC) Count 21.5 thou/uL (4.8-10.8)
[2020-09-11] MEDS: Hydrocortisone Sod Succ/PF 100 mg/2 ml Vial IVP SCH ×3 (06:18→19:45)
[2020-09-11] MEDS: Montelukast Sodium 10 mg Tablet PO SCH (08:00)
[2020-09-11] MEDS: Aspirin 81 mg Enteric Coated Tablet PO SCH (08:00)
[2020-09-11] MEDS: Ascorbic Acid 500 mg Chewable Tablet PO SCH (08:00)
[2020-09-11] MEDS: Lorazepam 2 MG/ML VIAL SLOW IVP PRN ×3 (08:00→14:37)
[2020-09-11] MEDS: Tamsulosin HCl 0.4 MG CAP PO SCH (08:01)
[2020-09-11] MEDS: Cholecalciferol (Vitamin D3) 400 UNITS TAB PO SCH (08:01)
[2020-09-11] MEDS: Clopidogrel Bisulfate 75 MG TAB PO SCH (08:01)
[2020-09-11] MEDS: Zinc Sulfate 220 MG CAP PO SCH (08:01)
[2020-09-11] MEDS: Amlodipine 5 MG TAB PO SCH (08:01)
[2020-09-11] MEDS: Metoprolol Tartrate 50 MG TAB PO SCH ×2 (08:01→19:45)
[2020-09-11] MEDS: Famotidine 20 MG TAB PO SCH (08:01)
[2020-09-11 08:31] LABS: Actual Bicarbonate (HCO3a) 26.3 mEq/L (22-28); CO2 Tension 44.8 mmHg (35.0-45.0); Calcium, Ionized (arterial) 1.12 mmol/L (1.12-1.30); Carboxyhemoglobin (COHb) 0.4 gm% (0.0-3.0); Hemoglobin (Hb) 11.4 g/dL (14.0-18.0); Potassium - ABG Lab 3.71 mmol/L (3.70-5.30); pH, Arterial 7.39 (7.35-7.45)
[2020-09-11 08:32] LABS: O2 Tension (PaO2), arterial 48.5 mmHg (> 70.0)
[2020-09-11 08:33] LABS: Puncture Site RRA
--- NOTE | 2020-09-11 09:14 | RAD ---
PORTABLE CHEST: HISTORY: Pneumonia followup. CCU followup. COMPARISON: 09/10/2020. FINDINGS: Diffuse bilateral alveolar infiltrates are again noted. Small bilateral effusions. ET tube remains in place. IMPRESSION: No significant interval change apparent. POS: AGW
[2020-09-11] MEDS: NPH, Human Insulin Isophane 300 UNIT/3 ML VIAL SC SCH ×2 (09:46→21:45)
[2020-09-11 10:30] LABS: INR-International Normal Ratio 1.1; Prothrombin Time 14.4 sec (12.0-14.7)
--- NOTE | 2020-09-11 10:47 | PDOC.HOSPP ---
- Subjective Encounter Date: 09/11/20 Encounter Time: 10:20 Subjective: Patient is on ventilator, no overnight event, - Objective Vital Signs & Weight: Vital Signs (12 hours) Temp Pulse Resp BP Pulse Ox 09/11/20 10:44 93 09/11/20 10:00 29 H 09/11/20 08:23 98 160/56 H 09/11/20 08:01 95 160/86 H 09/11/20 08:00 98.1 F 27 H 93 L 09/11/20 06:00 25 H 09/11/20 04:00 100.1 F H 25 H 09/11/20 03:00 99.6 F 09/11/20 02:28 95 167/69 H 09/11/20 02:00 99.6 F 25 H 09/11/20 00:00 99.6 F 27 H Weight Admit Weight 234 lb 8 oz Weight 250 lb 3.594 oz Most Recent Monitor Data Heart Rate from ECG 93 NIBP 138/70 NIBP BP-Mean 92 Respiration from ECG 28 SpO2 90 I&O: 09/10/20 09/11/20 09/12/20 06:59 06:59 06:59 Intake Total 2624.9 2758.8 300 Output Total 1655 1670 175 Balance 969.9 1088.8 125 Result Diagrams: 09/11/20 03:47 09/11/20 03:47 Additional Labs: Accuchecks 09/11/20 09/10/20 09/08/20 03:52 21:57 16:27 POC Glucose 211 H 189 H 239 H 09/08/20 08:53 POC Glucose 189 H Radiology Reviewed by me: Yes EKG Reviewed by me: Yes Hospitalist ROS - Review of Systems ROS unobtainable: due to endotracheal tube - Medication Medications: Active Medications Generic Name Dose Route Start Last Admin Trade Name Freq PRN Reason Stop Dose Admin Acetaminophen 650 mg 09/09/20 21:00 09/09/20 21:05 Acetaminophen 650 Mg/20.3 Ml Udcup PO 650 mg Q4H PRN Administration Headache/Fever/Mild Pain (1-3) Amlodipine Besylate 5 mg 08/31/20 09:00 09/11/20 08:01 Amlodipine 5 Mg Tab PO 5 mg DAILY MEREDITH Administration Ascorbic Acid 1,000 mg 09/03/20 09:00 09/11/20 08:00 Ascorbic Acid 500 Mg Chewable Tablet PO 1,000 mg DAILY MEREDITH Administration Aspirin 81 mg 08/30/20 09:00 09/11/20 08:00 Aspirin 81 Mg Enteric Coated Tablet PO 81 mg DAILY MEREDITH Administration Cholecalciferol 400 units 09/03/20 09:00 09/11/20 08:01 Cholecalciferol (Vitamin D3) 400 Units Tab PO 400 units DAILY MEREDITH Administration Clopidogrel Bisulfate 75 mg 08/30/20 09:00 09/11/20 08:01 Clopidogrel Bisulfate 75 Mg Tab PO 75 mg DAILY MEREDITH Administration Dextrose/Water 25 gm 08/29/20 16:11 09/07/20 23:07 Dextrose 50% Abboject 50 Ml Syringe SLOW IVP 25 gm PRN PRN Administration Hypoglycemia Famotidine 20 mg 08/29/20 21:00 09/11/20 08:01 Famotidine 20 Mg Tab PO 20 mg BID MEREDITH Administration Hydrocortisone Sodium Succinate 50 mg 09/06/20 10:45 09/11/20 06:18 Hydrocortisone Sod Succ/Pf 100 Mg/2 Ml Vial IVP 50 mg Q6HR MEREDITH Administration Nicardipine HCl 50 mg/ Sodium 250 mls @ 0 mls/hr 09/03/20 09:15 09/04/20 03:17 Chloride IV 250 mls INF MEREDITH Administration Protocol As Directed Dexmedetomidine HCl 400 mcg/ 100 mls @ 0 mls/hr 09/03/20 15:00 09/04/20 06:01 Sodium Chloride IVPB 100 mls INF MEREDITH Administration Protocol Titrate Fentanyl Citrate 2,000 mcg/ 100 mls @ 0 mls/hr 09/04/20 10:30 09/10/20 23:06 Sodium Chloride IV 10/04/20 10:30 100 mls INF MEREDITH Administration Protocol Per Protocol Insulin Human Lispro 0 units 08/29/20 16:11 09/11/20 09:45 Humalog 300 Units/3 Ml Vial SC 2 unit .MODERATE SLIDING SC PRN Administration Moderate Correctional Scale Insulin Human Lispro 0 units 08/29/20 16:11 09/05/20 22:55 Humalog 300 Units/3 Ml Vial SC 3 unit .BEDTIME SLIDING SC PRN Administration Bedtime Correctional Scale Insulin Human NPH 60 unit 09/06/20 10:45 09/11/20 09:46 Nph, Human Insulin Isophane 300 Unit/3 Ml Vial SC 60 unit BID MEREDITH Administration Isosorbide Mononitrate 30 mg 08/30/20 09:00 09/11/20 08:01 Isosorbide Mononitrate Er 30 Mg Tab PO 30 mg DAILY MEREDITH Administration Labetalol HCl 20 mg 08/31/20 19:08 09/08/20 21:15 Labetalol Hcl 100 Mg/20 Ml Vial SLOW IVP 20 mg Q4H PRN Administration SBP Greater Than 180 Lorazepam 2 mg 09/04/20 10:30 09/11/20 08:00 Lorazepam 2 Mg/Ml Vial SLOW IVP 10/04/20 10:30 2 mg Q1H PRN Administration Breakthrough agitation Metoprolol Tartrate 50 mg 08/30/20 09:00 09/11/20 08:01 Metoprolol Tartrate 50 Mg Tab PO 50 mg BID MEREDITH Administration Montelukast Sodium 10 mg 08/30/20 09:00 09/11/20 08:00 Montelukast Sodium 10 Mg Tablet PO 10 mg DAILY MEREDITH Administration Propofol 1,000 mg 09/04/20 10:30 09/11/20 08:04 Propofol 1,000 Mg/100 Ml Vial IV 10/04/20 10:30 1,000 mg INF PRN Administration TO ACHIEVE GOAL RASS Protocol Sodium Chloride 10 ml 09/02/20 21:00 09/11/20 08:02 Flush - Normal Saline 10 Ml Syringe IVF 10 ml Q12HR MEREDITH Administration Tamsulosin HCl 0.4 mg 08/30/20 09:00 09/11/20 08:01 Tamsulosin Hcl 0.4 Mg Cap PO 0.4 mg DAILY MEREDITH Administration Vecuronium [place] 10 mg 09/04/20 10:01 09/09/20 22:16 Vecuronium 10 Mg Vial IVP 10 mg Q30MIN PRN Administration Agitation Zinc Sulfate 220 mg 09/03/20 09:00 09/11/20 08:01 Zinc Sulfate 220 Mg Cap PO 220 mg DAILY MEREDITH Administration - Exam General Appearance: NAD, ill appearing Eye: PERRL ENT: normocephalic atraumatic Neck: supple, symmetric Heart: RRR, no murmur, no gallops Respiratory: no wheezes, no rales, no ronchi Gastrointestinal: soft, non-distended, normal bowel sounds Extremities: no cyanosis, 1+ LE edema Hosp A/P (1) Acute hypoxemic respiratory failure due to COVID-19 Code(s): U07.1 - COVID-19; J96.01 - ACUTE RESPIRATORY FAILURE WITH HYPOXIA Status: Acute (2) Obesity (BMI 30-39.9) Code(s): E66.9 - OBESITY, UNSPECIFIED Status: Chronic (3) Diabetes mellitus Code(s): E11.9 - TYPE 2 DIABETES MELLITUS WITHOUT COMPLICATIONS Status: Chronic Qualifiers: Diabetes mellitus type: type 2 (4) Hypertension Code(s): I10 - ESSENTIAL (PRIMARY) HYPERTENSION Status: Chronic Qualifiers: Hypertension type: essential hypertension Qualified Code(s): I10 - Essential (primary) hypertension - Plan old records reviewed/req, continue antibiotics, respiratory therapy Now patient is DNR Pulmonary managing ventilator Medications reviewed Prognosis poor
[2020-09-11] MEDS: Albuterol 200 PUFF (6.7GM INHALER) INH SCH (19:08)
[2020-09-11] MEDS: fentaNYL Citrate/PF 2,000 MCG in Sodium Chloride 0.9% 60 ML IV SCH (19:43)
--- NOTE | 2020-09-11 20:27 | PRG ---
DATE OF SERVICE: 09/11/2020 Harsha Rey remains mechanically ventilated. He is still requiring high-flow oxygen. OBJECTIVE: VITAL SIGNS: Heart rate is 106, respiratory rate is 30. FiO2 has been in the high 80s to low 90s today and this evening is up to 100%. Blood pressure 160/73. LUNGS: Unchanged. HEART: Unchanged. ABDOMEN: Unchanged. LABORATORY DATA: White count 21.5, hemoglobin 10.1, platelets 303. Sodium 144, potassium 4, chloride 106, bicarb 28, BUN 55, creatinine 1.9. PH 7.39, CO2 of 44, PO2 of 48. Apparently, his gas exchange has deteriorated this evening. I was hesitant to give him Lasix earlier because of his renal insufficiency, but he has been in positive fluid balance for several days, would probably benefit from some diuresis, although this may push him into renal failure. He will receive 80 of Lasix this evening. We will see how he does. Critical care time, 30 minutes. Job ID: [id number]
[2020-09-11] MEDS ORDERED: Furosemide 100 MG/10 ML VIAL SLOW IVP SCH (20:45)
[2020-09-12] MEDS: Hydrocortisone Sod Succ/PF 100 mg/2 ml Vial IVP SCH ×5 (00:12→23:25)
[2020-09-12] MEDS: Propofol 1,000 MG/100 ML VIAL IV PRN ×6 (00:54→23:25)
[2020-09-12] MEDS: Albuterol 200 PUFF (6.7GM INHALER) INH SCH ×4 (01:41→19:09)
[2020-09-12 05:12] LABS: Anion Gap 15 mmol/L (10-20); BUN (Urea Nitrogen) 76 mg/dL (8.4-25.7); Calc. Creatinine Clearance 44 mL/min (70-130); Calcium 8.2 mg/dL (7.8-10.44); Carbon Dioxide 30 mmol/L (23-31); Chloride 105 mmol/L (98-107); Estimated GFR-MDRD 33; Glucose 223 mg/dL (83-110); Potassium 3.9 mmol/L (3.5-5.1); Sodium 146 mmol/L (136-145)
[2020-09-12] MEDS: HumaLOG 300 UNITS/3 ML VIAL SC PRN (05:42)
[2020-09-12 06:48] LABS: #Lymphocytes 0.8 thou/uL (1.20-3.40); #Monocytes 0.7 thou/uL (0.11-0.59); #Neutrophils 17.2 thou/uL (1.40-6.50); %Basophils 0.1 % (0.0-1.0); %Eosinophils 0.1 % (0.0-10.0); %Lymphocytes 4.3 % (21.0-51.0); %Monocytes 3.5 % (0.0-10.0); Hemoglobin 9.7 g/dL (14.0-18.0); Mean Corpuscular HGB CONC 31.9 g/dL (32.0-36.0); Mean Corpuscular Hemoglobin 28.3 pg (27.0-31.0); Mean Corpuscular Volume 88.7 fL (78.0-98.0); Mean Platelet Volume 9.8 fL (7.4-10.4); Platelet Count 283 thou/uL (130-400); RBC Distribution Width 14.2 % (11.5-14.5); RBC Morphology Normal; Red Blood Cell (RBC) Count 3.41 mill/uL (4.70-6.10); White Blood Cell (WBC) Count 18.7 thou/uL (4.8-10.8)
--- NOTE | 2020-09-12 08:10 | RAD ---
Portable frontal chest radiograph: 09/12/2020 COMPARISON: 09/11/2020 HISTORY: Pneumonia FINDINGS: Stable endotracheal tube and nasogastric tube. Midline sternotomy wires are present. There is extensive interstitial and alveolar opacity throughout both lungs with a perihilar/bibasilar predominance. Probable small associated bilateral pleural effusions. No significant interval change. IMPRESSION: Stable appearance of the chest as detailed above.
[2020-09-12 08:25] LABS: Actual Bicarbonate (HCO3a) 28.9 mEq/L (22-28); Base Excess (BEa) 2.2 mEq/L (-2.0 to +3.0); CO2 Tension 55.3 mmHg (35.0-45.0); Calcium, Ionized (arterial) 1.07 mmol/L (1.12-1.30); Carboxyhemoglobin (COHb) 0.5 gm% (0.0-3.0); Hemoglobin (Hb) 11.3 g/dL (14.0-18.0); Potassium - ABG Lab 3.78 mmol/L (3.70-5.30); pH, Arterial 7.34 (7.35-7.45)
[2020-09-12 08:30] LABS: O2 Tension (PaO2), arterial 54.1 mmHg (> 70.0)
[2020-09-12 08:31] LABS: ALV-art Gradient 589.775 mmHg (0-20); Puncture Site RR
[2020-09-12] MEDS: Cholecalciferol (Vitamin D3) 400 UNITS TAB PO SCH (09:32)
[2020-09-12] MEDS: Aspirin 81 mg Enteric Coated Tablet PO SCH (09:33)
[2020-09-12] MEDS: Famotidine 20 MG TAB PO SCH (09:33)
[2020-09-12] MEDS: Ascorbic Acid 500 mg Chewable Tablet PO SCH (09:33)
[2020-09-12] MEDS: Amlodipine 5 MG TAB PO SCH (09:34)
[2020-09-12] MEDS: Tamsulosin HCl 0.4 MG CAP PO SCH (09:34)
[2020-09-12] MEDS: Zinc Sulfate 220 MG CAP PO SCH (09:34)
[2020-09-12] MEDS: Clopidogrel Bisulfate 75 MG TAB PO SCH (09:34)
[2020-09-12] MEDS: Montelukast Sodium 10 mg Tablet PO SCH (09:35)
[2020-09-12] MEDS: Metoprolol Tartrate 50 MG TAB PO SCH ×2 (09:35→20:53)
[2020-09-12] MEDS: NPH, Human Insulin Isophane 300 UNIT/3 ML VIAL SC SCH ×2 (09:36→20:54)
[2020-09-12 13:15] VITALS: BMI 37.3
[2020-09-12] MEDS ORDERED: Furosemide 100 MG/10 ML VIAL SLOW IVP SCH (13:30)
[2020-09-12] MEDS: Vecuronium 10 MG VIAL IVP PRN ×2 (14:30→19:23)
[2020-09-12] MEDS: Labetalol HCl 100 MG/20 ML VIAL SLOW IVP PRN (15:12)
[2020-09-12] MEDS: Lorazepam 2 MG/ML VIAL SLOW IVP PRN ×2 (15:13→19:23)
[2020-09-12] MEDS: fentaNYL Citrate/PF 2,000 MCG in Sodium Chloride 0.9% 60 ML IV SCH (16:35)
--- NOTE | 2020-09-12 17:42 | PRG ---
DATE OF SERVICE: 09/12/2020 SUBJECTIVE: Mr. Rey remains mechanically ventilated. OBJECTIVE: VITAL SIGNS: Blood pressure this afternoon is 169/88; heart rate is 103, it transiently went up to 100% of oxygen, had gone back down to 90%. LUNGS: Remarkable for coarse equal breath sounds. HEART: Regular rhythm. ABDOMEN: Soft. LABORATORY DATA: White count 18.7, hemoglobin 9.7, and platelets 283. Sodium 146, potassium 3.9, chloride 105, bicarb 30, BUN 76, and creatinine 2.34. Intake and output with Lasix last night was positive 625. We will continue to diurese him understanding that he may develop renal failure. Cannot afford to have any pulmonary edema next with this. Unfortunately, his prognosis remains extremely guarded. Job ID: [id number] [facility]
[2020-09-13] MEDS: Albuterol 200 PUFF (6.7GM INHALER) INH SCH ×4 (02:10→19:14)
[2020-09-13] MEDS: Propofol 1,000 MG/100 ML VIAL IV PRN ×4 (03:04→19:35)
[2020-09-13 04:54] LABS: Anion Gap 21 mmol/L (10-20); BUN (Urea Nitrogen) 112 mg/dL (8.4-25.7); Calc. Creatinine Clearance 29 mL/min (70-130); Calcium 7.8 mg/dL (7.8-10.44); Carbon Dioxide 27 mmol/L (23-31); Chloride 102 mmol/L (98-107); Estimated GFR-MDRD 22; Glucose 309 mg/dL (83-110); Potassium 4.7 mmol/L (3.5-5.1); Sodium 145 mmol/L (136-145)
[2020-09-13] MEDS: HumaLOG 300 UNITS/3 ML VIAL SC PRN ×3 (04:56→18:50)
[2020-09-13 05:34] LABS: Band 22 % (5-11); Hemoglobin 10.1 g/dL (14.0-18.0); Lymphocytes 3 % (21-51); MDiff Complete? YES; Mean Corpuscular Hemoglobin 28.1 pg (27.0-31.0); Mean Corpuscular Volume 90.5 fL (78.0-98.0); Mean Platelet Volume 9.8 fL (7.4-10.4); Monocytes 3 % (0-10); Myelocyte 1 % (0-0); Neutrophil 71 % (42-75); Platelet Count 260 thou/uL (130-400); RBC Distribution Width 14.7 % (11.5-14.5); Red Blood Cell (RBC) Count 3.59 mill/uL (4.70-6.10); White Blood Cell (WBC) Count 18.9 thou/uL (4.8-10.8)
[2020-09-13] MEDS: Hydrocortisone Sod Succ/PF 100 mg/2 ml Vial IVP SCH ×3 (06:16→18:20)
--- NOTE | 2020-09-13 07:58 | RAD ---
EXAM: Chest one view: HISTORY: Follow-up pneumonia COMPARISON: 09/12/2020 FINDINGS: Endotracheal tube and NG tube remain in place. Monitor leads overlie and somewhat obscure the chest. Postop midline sternotomy. Heart size: Within normal limits. Lungs: Extensive bilateral alveolar and groundglass opacity changes throughout both lungs No evidence for confluent lobar pneumonia, pleural effusion, acute edema, or pneumothorax, or other s ignificant acute process. IMPRESSION: Stable extensive bilateral alveolar groundglass opacity changes.
[2020-09-13 08:06] LABS: Actual Bicarbonate (HCO3a) 26.5 mEq/L (22-28); Base Excess (BEa) -2.3 mEq/L (-2.0 to +3.0); Calcium, Ionized (arterial) 1.02 mmol/L (1.12-1.30); Carboxyhemoglobin (COHb) 0.9 gm% (0.0-3.0); Hemoglobin (Hb) 10.4 g/dL (14.0-18.0); Potassium - ABG Lab 4.31 mmol/L (3.70-5.30)
[2020-09-13 08:15] LABS: CO2 Tension 68.3 mmHg (35.0-45.0); O2 Tension (PaO2), arterial 49.8 mmHg (> 70.0); pH, Arterial 7.21 (7.35-7.45)
[2020-09-13 08:16] LABS: ALV-art Gradient 506.525 mmHg (0-20); Puncture Site RR
--- NOTE | 2020-09-13 08:26 | PDOC.HOSPP ---
- Subjective Encounter Date: 09/12/20 Encounter Time: 11:45 Subjective: pt intubated - Objective Vital Signs & Weight: Vital Signs (12 hours) Temp Pulse Resp BP 09/13/20 07:40 98 138/74 09/13/20 06:00 20 09/13/20 04:00 97.2 F L 19 09/13/20 02:07 88 09/13/20 02:00 18 09/13/20 00:00 97.7 F 18 09/12/20 22:04 90 09/12/20 22:00 18 Weight Admit Weight 234 lb 8 oz Weight 238 lb 1.588 oz Most Recent Monitor Data Heart Rate from ECG 93 NIBP 138/77 NIBP BP-Mean 97 Respiration from ECG 18 SpO2 91 I&O: 09/12/20 09/13/20 09/14/20 06:59 06:59 06:59 Intake Total 2835 1634 Output Total 2210 2876 Balance 625 -1242 Result Diagrams: 09/13/20 03:50 09/13/20 03:50 Additional Labs: Accuchecks 09/12/20 09/12/20 21:18 10:32 POC Glucose 252 H 208 H Hospitalist ROS - Review of Systems Other: unable to obtain - Medication Medications: Active Medications Generic Name Dose Route Start Last Admin Trade Name Yeyo PRN Reason Stop Dose Admin Acetaminophen 650 mg 09/09/20 21:00 09/09/20 21:05 Acetaminophen 650 Mg/20.3 Ml Udcup PO 650 mg Q4H PRN Administration Headache/Fever/Mild Pain (1-3) Albuterol Sulfate 2 puff 09/11/20 19:00 09/13/20 07:42 Albuterol 200 Puff (6.7gm Inhaler) INH 2 puff [id number] MEREDITH Administration Amlodipine Besylate 5 mg 08/31/20 09:00 09/12/20 09:34 Amlodipine 5 Mg Tab PO 5 mg DAILY MEREDITH Administration Ascorbic Acid 1,000 mg 09/03/20 09:00 09/12/20 09:33 Ascorbic Acid 500 Mg Chewable Tablet PO 1,000 mg DAILY MEREDITH Administration Aspirin 81 mg 08/30/20 09:00 09/12/20 09:33 Aspirin 81 Mg Enteric Coated Tablet PO 81 mg DAILY MEREDITH Administration Cholecalciferol 400 units 09/03/20 09:00 09/12/20 09:32 Cholecalciferol (Vitamin D3) 400 Units Tab PO 400 units DAILY MEREDITH Administration Clopidogrel Bisulfate 75 mg 08/30/20 09:00 09/12/20 09:34 Clopidogrel Bisulfate 75 Mg Tab PO 75 mg DAILY MEREDITH Administration Dextrose/Water 25 gm 08/29/20 16:11 09/07/20 23:07 Dextrose 50% Abboject 50 Ml Syringe SLOW IVP 25 gm PRN PRN Administration Hypoglycemia Famotidine 20 mg 09/12/20 09:00 09/12/20 09:33 Famotidine 20 Mg Tab PO 20 mg 0900 MEREDITH Administration Hydrocortisone Sodium Succinate 50 mg 09/06/20 10:45 09/13/20 06:16 Hydrocortisone Sod Succ/Pf 100 Mg/2 Ml Vial IVP 50 mg Q6HR MEREDITH Administration Nicardipine HCl 50 mg/ Sodium 250 mls @ 0 mls/hr 09/03/20 09:15 09/04/20 03:17 Chloride IV 250 mls INF MEREDITH Administration Protocol As Directed Fentanyl Citrate 2,000 mcg/ 100 mls @ 0 mls/hr 09/04/20 10:30 09/12/20 16:35 Sodium Chloride IV 10/04/20 10:30 100 mls INF MEREDITH Administration Protocol Per Protocol Insulin Human Lispro 0 units 08/29/20 16:11 09/13/20 04:56 Humalog 300 Units/3 Ml Vial SC 8 unit .MODERATE SLIDING SC PRN Administration Moderate Correctional Scale Insulin Human Lispro 0 units 08/29/20 16:11 09/05/20 22:55 Humalog 300 Units/3 Ml Vial SC 3 unit .BEDTIME SLIDING SC PRN Administration Bedtime Correctional Scale Insulin Human NPH 60 unit 09/06/20 10:45 09/12/20 20:54 Nph, Human Insulin Isophane 300 Unit/3 Ml Vial SC 60 unit BID MEREDITH Administration Isosorbide Mononitrate 30 mg 08/30/20 09:00 09/12/20 09:34 Isosorbide Mononitrate Er 30 Mg Tab PO 30 mg DAILY MEREDITH Administration Labetalol HCl 20 mg 08/31/20 19:08 09/12/20 15:12 Labetalol Hcl 100 Mg/20 Ml Vial SLOW IVP 20 mg Q4H PRN Administration SBP Greater Than 180 Lorazepam 2 mg 09/04/20 10:30 09/12/20 19:23 Lorazepam 2 Mg/Ml Vial SLOW IVP 10/04/20 10:30 2 mg Q1H PRN Administration Breakthrough agitation Metoprolol Tartrate 50 mg 08/30/20 09:00 09/12/20 20:53 Metoprolol Tartrate 50 Mg Tab PO 50 mg BID MEREDITH Administration Montelukast Sodium 10 mg 08/30/20 09:00 09/12/20 09:35 Montelukast Sodium 10 Mg Tablet PO 10 mg DAILY MEREDITH Administration Propofol 1,000 mg 09/04/20 10:30 09/13/20 03:04 Propofol 1,000 Mg/100 Ml Vial IV 10/04/20 10:30 1,000 mg INF PRN Administration TO ACHIEVE GOAL RASS Protocol Sodium Chloride 10 ml 09/02/20 21:00 09/12/20 20:53 Flush - Normal Saline 10 Ml Syringe IVF 10 ml Q12HR MEREDITH Administration Tamsulosin HCl 0.4 mg 08/30/20 09:00 09/12/20 09:34 Tamsulosin Hcl 0.4 Mg Cap PO 0.4 mg DAILY MEREDITH Administration Vecuronium Santa 10 mg 09/04/20 10:01 09/12/20 19:23 Vecuronium 10 Mg Vial IVP 10 mg Q30MIN PRN Administration Agitation Zinc Sulfate 220 mg 09/03/20 09:00 09/12/20 09:34 Zinc Sulfate 220 Mg Cap PO 220 mg DAILY MEREDITH Administration - Exam Neck: negative: supple, symmetric, no JVD, no thyromegaly, no lymphadenopathy, no carotid bruit, JVD Heart: negative: RRR, no murmur, no gallops, no rubs, normal peripheral pulses, irregular, diminshed peripheral pulses, murmur present, II/IV, III/IV Respiratory: negative: CTAB, no wheezes, no rales, no ronchi, normal chest expansion, no tachypnea, normal percussion, rales, rhonchi, tachypneic, wheezes Gastrointestinal: negative: soft, non-tender, non-distended, normal bowel sounds, no palpable masses, no hepatomegaly, no splenomegaly, no bruit, no guarding, no rigidity, tender to palpation, distended, diminished bowl sounds, voluntary guarding Hosp A/P (1) Acute hypoxemic respiratory failure due to COVID-19 Code(s): U07.1 - COVID-19; J96.01 - ACUTE RESPIRATORY FAILURE WITH HYPOXIA Status: Acute (2) Obesity (BMI 30-39.9) Code(s): E66.9 - OBESITY, UNSPECIFIED Status: Chronic (3) Diabetes mellitus Code(s): E11.9 - TYPE 2 DIABETES MELLITUS WITHOUT COMPLICATIONS Status: Chronic Qualifiers: Diabetes mellitus type: type 2 (4) Hypertension Code(s): I10 - ESSENTIAL (PRIMARY) HYPERTENSION Status: Chronic Qualifiers: Hypertension type: essential hypertension Qualified Code(s): I10 - Essential (primary) hypertension (5) JANE (acute kidney injury) Code(s): N17.9 - ACUTE KIDNEY FAILURE, UNSPECIFIED Status: Acute (6) Syncope and collapse Code(s): R55 - SYNCOPE AND COLLAPSE Status: Acute Plan: Most likely secondary to hypoglycemia. - Plan Patient is a 74-year-old male with history of diabetes, CAD, hypertension who was at his pain doctor for scheduled appointment and became unresponsive. EMS was called there is a possible concern for seizures at this time glucose was checked which was 53. After appropriate resuscitation with glucose patient was able to communicate. Patient spiked a fever on August 30. Covid was checked which was positive.. Patient underwent EEG which was negative. His unresponsiveness was noted to be most likely secondary to hypoglycemia. Patient was initially put on high flow and then was subsequently intubated. He was intubated on September 04. 09/13 patient continues to be intubated him started on IV diuretics. Patient has been made a DNR.
[2020-09-13] MEDS: Furosemide 100 MG/10 ML VIAL SLOW IVP SCH (08:47)
[2020-09-13] MEDS: Clopidogrel Bisulfate 75 MG TAB PO SCH (08:47)
[2020-09-13] MEDS: Famotidine 20 MG TAB PO SCH (08:47)
[2020-09-13] MEDS: Tamsulosin HCl 0.4 MG CAP PO SCH (08:47)
[2020-09-13] MEDS: Montelukast Sodium 10 mg Tablet PO SCH (08:48)
[2020-09-13] MEDS: Ascorbic Acid 500 mg Chewable Tablet PO SCH (08:48)
[2020-09-13] MEDS: Aspirin 81 mg Enteric Coated Tablet PO SCH (08:53)
[2020-09-13] MEDS: Zinc Sulfate 220 MG CAP PO SCH (08:53)
[2020-09-13] MEDS: Metoprolol Tartrate 50 MG TAB PO SCH ×2 (08:53→20:22)
[2020-09-13] MEDS: Amlodipine 5 MG TAB PO SCH (08:53)
[2020-09-13] MEDS: NPH, Human Insulin Isophane 300 UNIT/3 ML VIAL SC SCH ×2 (08:54→21:34)
[2020-09-13] MEDS: Cholecalciferol (Vitamin D3) 400 UNITS TAB PO SCH (08:54)
[2020-09-13] MEDS: Lorazepam 2 MG/ML VIAL SLOW IVP PRN (12:25)
--- NOTE | 2020-09-13 13:19 | PRG ---
DATE OF SERVICE: 09/13/2020 SUBJECTIVE: Harsha Rey is 13 days into his hospitalization, so he is probably 2 or more weeks into his illness. His son wants to come see him and I have asked the son to come up. He is developing more of an acid-base disorder, which I am sure is related to his renal insufficiency that is progressing. His ABG this morning showed a pH of 7.21, pCO2 of 68, and pO2 of 49. Some of this is respiratory related, but some of it is metabolic as well. His respiratory rate has been increased to 30. OBJECTIVE: LUNGS: He still has coarse equal breath sounds. HEART: Regular rhythm. ABDOMEN: Soft. LABORATORY DATA: Creatinine is up to 3.35. White count is 18.9, hemoglobin 10.1, platelets 260. ASSESSMENT AND RECOMMENDATIONS: I have asked his son to spend some time today thinking about whether or not he wants to have his dad go for the dialysis. His dad at 74 with multiorgan failure becomes less likely at this age that he can survive this, but it is certainly not hopeless at this point. With dialysis, if we can successfully remove some volume, his gas exchange may improve. I cannot tell him at this point that I would advise against it or for it. He just asked to be in my opinion in accordance of what he thinks his dad would want to put up with. We are looking at probably 1 to 2 months of recovery if he survives this, probably an inability to recover to a functional level or maybe some more months after that. He will come up and will be thinking about this. CRITICAL CARE TIME: 30 minutes. Job ID: [id number]
[2020-09-13] MEDS: fentaNYL Citrate/PF 2,000 MCG in Sodium Chloride 0.9% 60 ML IV SCH (13:42)
[2020-09-13 16:38] LABS: Bilirubin Negative (Negative); Blood, Urine Large (Negative); Glucose, Urine (Dipstick) Negative (Negative); Ketone, Urine Negative (Negative); Leukocyte Trace (Negative); Nitrite Negative (Negative); Protein, Urine (Dipstick) Trace mg/dL (Neg-Trace); Urobilinogen 0.2 mg/dL (Less than 2); pH, Urine 5.5 (5.0-9.0)
[2020-09-13 16:44] LABS: Clarity Cloudy (Clear)
[2020-09-13 16:46] LABS: Bacteria/HPF Rare-Few HPF (None Seen); Squamous Epithelial 0-3 HPF (0-3); Transitional Epithelial 0-3 HPF (None Seen); Yeast-Budding 2+ HPF (None Seen); Yeast-Hyphae 1+ HPF (None Seen)
[2020-09-13 16:59] LABS: Creatinine, Urine 30.06 mg/dL (63-166); Protein, Urine Random Quant 33 mg/dL (1-14); Sodium, Urine Less than 20 mmol/L (Not Available); Urea Nitrogen, Random Urine 640 mg/dl
[2020-09-13 17:35] LABS: Albumin 2.4 g/dL (3.4-4.8); Anion Gap 23 mmol/L (10-20); BUN (Urea Nitrogen) 120 mg/dL (8.4-25.7); BUN/Creatinine Ratio 38.34; Calc. Creatinine Clearance 31 mL/min (70-130); Calcium 7.5 mg/dL (7.8-10.44); Carbon Dioxide 22 mmol/L (23-31); Chloride 105 mmol/L (98-107); Estimated GFR-MDRD 24; Glucose 297 mg/dL (83-110); Phosphorus 7.3 mg/dL (2.3-4.7); Potassium 4.5 mmol/L (3.5-5.1); Sodium 145 mmol/L (136-145)
[2020-09-13] MEDS: Albumin 25% 25 GM/100 ML BOT IVPB SCH (18:41)
[2020-09-14] MEDS: Propofol 1,000 MG/100 ML VIAL IV PRN ×6 (00:15→20:04)
[2020-09-14] MEDS: Hydrocortisone Sod Succ/PF 100 mg/2 ml Vial IVP SCH ×4 (00:16→17:19)
[2020-09-14] MEDS: Albumin 25% 25 GM/100 ML BOT IVPB SCH (00:18)
[2020-09-14] MEDS: Lorazepam 2 MG/ML VIAL SLOW IVP PRN (01:49)
[2020-09-14] MEDS: Albuterol 200 PUFF (6.7GM INHALER) INH SCH ×4 (02:17→18:28)
[2020-09-14 05:01] LABS: Anion Gap 20 mmol/L (10-20); BUN (Urea Nitrogen) 120 mg/dL (8.4-25.7); Calc. Creatinine Clearance 33 mL/min (70-130); Carbon Dioxide 29 mmol/L (23-31); Chloride 107 mmol/L (98-107); Estimated GFR-MDRD 25; Glucose 204 mg/dL (83-110); Potassium 3.5 mmol/L (3.5-5.1); Sodium 152 mmol/L (136-145)
[2020-09-14] MEDS: HumaLOG 300 UNITS/3 ML VIAL SC PRN (05:17)
[2020-09-14 05:38] LABS: Band 21 % (5-11); Hemoglobin 9.1 g/dL (14.0-18.0); Lymphocytes 5 % (21-51); MDiff Complete? YES; Mean Corpuscular HGB CONC 32.4 g/dL (32.0-36.0); Mean Corpuscular Hemoglobin 28.1 pg (27.0-31.0); Mean Corpuscular Volume 86.9 fL (78.0-98.0); Metamyelocyte 3 % (0-0); Monocytes 2 % (0-10); Neutrophil 69 % (42-75); Nucleated RBC 2 % (0); Platelet Count 237 thou/uL (130-400); Platelet Morphology Comment Appears Adequate; RBC Distribution Width 14.5 % (11.5-14.5); Red Blood Cell (RBC) Count 3.22 mill/uL (4.70-6.10); White Blood Cell (WBC) Count 18.9 thou/uL (4.8-10.8)
[2020-09-14 07:00] LABS: Actual Bicarbonate (HCO3a) 28.5 mEq/L (22-28); Base Excess (BEa) 1.6 mEq/L (-2.0 to +3.0); CO2 Tension 56.1 mmHg (35.0-45.0); Calcium, Ionized (arterial) 1.05 mmol/L (1.12-1.30); Carboxyhemoglobin (COHb) 0.5 gm% (0.0-3.0); Potassium - ABG Lab 3.33 mmol/L (3.70-5.30); pH, Arterial 7.32 (7.35-7.45)
[2020-09-14 07:34] LABS: O2 Tension (PaO2), arterial 48.6 mmHg (> 70.0); Puncture Site RBRACH
[2020-09-14 07:35] LABS: ALV-art Gradient 558.625 mmHg (0-20)
[2020-09-14] MEDS: Vecuronium 10 MG VIAL IVP PRN ×2 (07:47→21:59)
--- NOTE | 2020-09-14 08:07 | RAD ---
XR Chest 1 View Portable History: Pneumonia Comparison: Radiograph prior day Findings: Endotracheal tube tip above the jaylyn 2.5 cm. Enteric tube tip below diaphragm although ou t of field of view. Slight worsening upper lobe lung aeration. Small effusions. No pneumothorax. Heart size upper limits of normal. Impression: Slight worsening upper lobe lung aeration.
[2020-09-14] MEDS: Famotidine 20 MG TAB PO SCH (09:09)
[2020-09-14] MEDS: Clopidogrel Bisulfate 75 MG TAB PO SCH (09:10)
[2020-09-14] MEDS: Furosemide 100 MG/10 ML VIAL SLOW IVP SCH (09:10)
[2020-09-14] MEDS: Aspirin 81 mg Enteric Coated Tablet PO SCH (09:10)
[2020-09-14] MEDS: Ascorbic Acid 500 mg Chewable Tablet PO SCH (09:10)
[2020-09-14] MEDS: Amlodipine 5 MG TAB PO SCH (09:10)
[2020-09-14] MEDS: Montelukast Sodium 10 mg Tablet PO SCH (09:10)
[2020-09-14] MEDS: Tamsulosin HCl 0.4 MG CAP PO SCH (09:10)
[2020-09-14] MEDS: Metoprolol Tartrate 50 MG TAB PO SCH ×2 (09:10→20:04)
[2020-09-14] MEDS: Cholecalciferol (Vitamin D3) 400 UNITS TAB PO SCH (09:11)
[2020-09-14] MEDS: Zinc Sulfate 220 MG CAP PO SCH (09:11)
[2020-09-14] MEDS: NPH, Human Insulin Isophane 300 UNIT/3 ML VIAL SC SCH ×3 (09:12→22:35)
[2020-09-14] MEDS ORDERED: Heparin 10,000 UNITS/ 10 ML VIAL ONE (09:31)
--- NOTE | 2020-09-14 10:51 | CON ---
DATE OF CONSULTATION: 09/13/2020 SERVICE: Nephrology. REASON FOR CONSULTATION: Acute renal failure. REQUESTING PHYSICIAN: Dr. Irby. HISTORY OF PRESENT ILLNESS: A 74-year-old male with past medical history significant for hypertension, diabetes mellitus, and chronic back pain, who was initially admitted on August 29, 2020, after he was found to have [facility]. This was felt initially to be due to hypoglycemia, which was treated with improvement. While discharge is being contemplated, the patient had a febrile episode following which evaluation was positive for COVID. He subsequently developed worsening hypoxia and was admitted to the ICU and subsequently intubated. Creatinine on presentation was 1.44. The patient had an initial acute kidney injury with creatinine increasing to a peak of 1.79 before improving to a celeste of 1.02 on September 09. However, from September 10, creatinine progressively has been trending up to a peak of 3.35 today necessitating Nephrology consult. BUN, however, has been trending up since September 04 with commencement of steroid therapy to a peak of 112 today. Of note, the patient was started on diuretic therapy yesterday. The patient is currently intubated and unable to provide any history. Above history was obtained from review of medical record. PAST MEDICAL HISTORY: 1. Obesity. 2. Diabetes mellitus, on insulin. 3. Hypertension. 4. Hyperlipidemia. 5. Chronic low back pain. 6. BPH. PAST SURGICAL HISTORY: 1. CABG. 2. Total knee replacement. 3. Left femoral endarterectomy. FAMILY HISTORY: Could not be obtained due to the patient's condition. SOCIAL HISTORY: The patient lives alone currently. He reportedly ambulates with a cane and walker. He is a never smoker and denied alcohol use or drug use when he was awake. ALLERGIES: NO KNOWN DRUG ALLERGIES REPORTED. MEDICATIONS: Prior to hospital medications are as follows; 1. Doxycycline 100 mg b.i.d. 2. Insulin 55 units b.i.d. 3. Montelukast 10 mg daily. 4. Metoprolol 50 mg p.o. b.i.d. 5. Plavix 75 mg p.o. daily. 6. Flomax 0.4 mg daily. 7. Aspirin 81 mg p.o. daily. Current hospital medications are as follows; 1. Fentanyl infusion. 2. Hydrocortisone 50 mg IV push q.6 hours. 3. Amlodipine 5 mg p.o. daily. 4. Ascorbic acid per tube daily. 5. Aspirin per tube daily. 6. Cholecalciferol 400 units per tube daily. 7. Plavix 75 mg per tube daily. 8. Pepcid 20 mg per tube daily. 9. Lasix 80 mg daily. 10. Isosorbide mononitrate. 11. Montelukast 10 mg daily. 12. Metoprolol 50 mg b.i.d. 13. NPH insulin 60 units subcutaneously b.i.d. 14. Flomax 0.4 mg per tube daily. 15. Zinc sulfate 220 mg per tube daily. 16. Propofol infusion. REVIEW OF SYSTEMS: Could not be performed due to the patient's condition. PHYSICAL EXAMINATION: VITAL SIGNS: Temperature 98.3, heart rate 89, respiratory rate 30, blood pressure 128/70, SpO2 91 on 90% FiO2. I and O in the last 24 hours showed total intake of 1634 with total output of 2876. Admission weight was 234, but it went up to a peak of 250 before trending down to 238. GENERAL: Somnolent/sedated elderly male, in no obvious distress. Afebrile. HEENT: Normocephalic, atraumatic. ET tube is in place. CARDIOVASCULAR: Regular rhythm and rate with normal heart sounds 1 and 2. RESPIRATORY: Coarse ventilator transmitted breath sounds noted. GI: Obese, soft, with hypoactive bowel sounds. UROGENITAL: Jovel catheter is in place draining some urine. EXTREMITIES: Mild to moderate edema of the extremities noted. 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 Nonresponsive. DIAGNOSTIC DATA: CBC today showed WBC count of 18.9, hemoglobin of 10.1, MCV of 90.5, platelet of 260. Hemoglobin has dropped down from 16.6 on admission to 10.1 currently. Arterial blood gas earlier today showed pH of 7.2, pCO2 of 68.3, pO2 of 49.8 with ionized calcium of 1.02. Chemistry earlier today showed sodium 145, potassium 4.7, chloride 102, CO2 of 27, BUN 112, creatinine 3.35, glucose 309, calcium 7.8. Chest x-ray performed earlier today showed extensive bilateral alveolar and ground-glass opacity throughout both lungs with no evidence of confluent lobar pneumonia, pleural effusion or pneumothorax. Urinalysis performed on September 09 showed yellow turbid urine with pH of 5.5, specific gravity of 1.023, positive protein and blood but negative ketone, nitrite. Leukocyte esterase is positive. Microscopy showed 21 to 50 wbc's and 21 to 50 rbc's. Some budding yeast also noticed on the urine. ASSESSMENT: 1. Acute on chronic renal failure: This is most likely due to hemodynamic factors related to intravascular contraction and sepsis. The patient has not been on any nephrotoxic agent and has not received any contrast. Of note, BUN went up from 70 to 112 following diuretic therapy, making a case for intravascular contraction despite generalized swelling. 2. 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 3. Volume overload. 4. Acute respiratory failure requiring intubation due to COVID pneumonia. 5. Marked azotemia: Seems to be multifactorial from renal insufficiency, volume depletion, diuretic therapy and steroids. 6. Diabetes mellitus with hyperglycemia. 7. Hypertensive urgency. Improved with Cardene. Currently on oral antihypertensives. 8. Hypoalbuminemia. 9. Pulmonary congestion/infiltrate: Due to fluid overload, congestion as well as COVID pneumonia. PLAN: 1. We will get urinalysis as well as urine electrolytes. We will also get current albumin level. 2. Agree with diuretic therapy. 3. We will add albumin if indicated. 4. Given that BUN is already 117 with diuretic therapy alone, we have little or no room to escalate diuretic therapy. Despite diuretic therapy, the patient is still volume overloaded. We are looking at dialytic therapy in the next day or so to help with fluid and metabolic management. We discussed with primary attending and the patient's next of kin about dialytic therapy. We will review other diagnostic tests. Further treatment to follow depending on hospital course. We will follow renal function. Many thanks for involving us in the care of this patient. We will follow along with you. Job ID: [id number] [facility]
[2020-09-14] MEDS ORDERED: Lorazepam 2 MG/ML VIAL SLOW IVP PRN (12:35)
[2020-09-14] MEDS ORDERED: Morphine 2 MG/ML VIAL SLOW IVP PRN (12:35)
[2020-09-14] MEDS ORDERED: Fentanyl BOLUS 250 ML IVPB PRN (12:36)
[2020-09-14] MEDS: fentaNYL Citrate/PF 2,000 MCG in Sodium Chloride 0.9% 60 ML IV SCH (12:55)
[2020-09-14 13:01] LABS: HBSAg Index 0.13 S/CO (0-0.99); Hep B Surf Ag Non-Reactive S/CO (NonReactive)
[2020-09-14 13:04] LABS: Hep C IgG Ab Reflex HepC Qnt (NonReactive)
[2020-09-14 13:05] LABS: Hep B Surf AB Reactive (NonReactive)
[2020-09-14 14:20] LABS: Hep B Core Total Index 1.13 S/CO (0-0.79)
[2020-09-14 14:21] LABS: Hep C Index 2.79 S/CO (0-0.79)
--- NOTE | 2020-09-14 14:47 | ULT ---
ULTRASOUND VENOUS MAPPING UPPER EXTREMITIES BILATERAL: DATE: 09/14/2020 HISTORY: 74-year-old male with End-stage renal disease. Surgical planning study for creation of arteriovenous fistula for hemodialysis. The electronics assembler notified nurse Jeannette of the venous thrombosis shortly prior to this dictation. FINDINGS: Technically difficult exam because of bandages in the upper extremities, patient restrained, and intu bation. RIGHT: Brachial artery:5 mm Radial artery:3 mm Ulnar artery:2 mm Cephalic vein: Proximal arm: 3 mm Mid arm: 1.5 mm Distal arm: 1 mm Antecubital: 1 mm Proximal forearm: 0.5 mm Mid forearm: 1 mm Distal forearm: 0.5 mm There is short segment thrombus in the right brachial vein, with noncompressibility and decreased tobi w, at the right antecubital fossa. Basilic vein: Proximal arm: Not visualized Mid arm: Not visualized. Distal arm: Not visualized Antecubital: 2.5 mm. Noncompressible due to thrombus. Proximal forearm: Not visualized Mid forearm: Not visualized Distal forearm: Not visualized LEFT: There is a short segment thrombus in the left mid brachial vein at IV site, with noncompressibility a nd absence of flow. Brachial artery:6 mm Radial artery:3.5 mm Ulnar artery:3 mm Cephalic vein: Proximal arm: 2 mm Mid arm: 1 mm Distal arm: 1.5 mm Antecubital: 0.5 mm Proximal forearm: 0.5 mm Mid forearm: 1 mm Distal forearm: 1 mm Basilic vein: Proximal arm: Not visualized Mid arm: Not visualized Distal arm: 2 mm Antecubital: 1.5 mm Proximal forearm: 1 mm Mid forearm: 1 mm Distal forearm: 0.5 mm IMPRESSION: 1) thrombosis involving short segments of bilateral brachial veins. The one on the left is occlusive. 2) basilic veins of bilateral arms are not visualized, except for the distal portion of the left arm proximal to the elbow. 3) no veins are consistently larger than 3 mm. 4) bilateral upper extremity soft tissue edema
--- NOTE | 2020-09-14 16:11 | PDOC.HOSPP ---
- Subjective Encounter Date: 09/13/20 Encounter Time: 10:30 Subjective: pt intubated - Objective Vital Signs & Weight: Vital Signs (12 hours) Temp Pulse Resp Pulse Ox 09/14/20 14:00 30 H 09/14/20 12:00 98.1 F 30 H 09/14/20 10:08 100 09/14/20 10:00 30 H 09/14/20 09:10 96 09/14/20 08:00 98.2 F 30 H 93 L 09/14/20 07:32 96 09/14/20 06:00 30 H Weight Admit Weight 234 lb 8 oz Weight 225 lb 4.999 oz Most Recent Monitor Data Heart Rate from ECG 92 NIBP 158/72 NIBP BP-Mean 100 Respiration from ECG 30 SpO2 90 I&O: 09/13/20 09/14/20 09/15/20 06:59 06:59 06:59 Intake Total 1634 1135.1 Output Total 2876 2965 950 [facility], [place] -1242 -1829.9 -950 Result Diagrams: 09/14/20 04:00 09/14/20 04:00 Additional Labs: Accuchecks 09/14/20 09/14/20 09/13/20 15:20 09:43 21:39 POC Glucose 109 H 134 H 226 H 09/13/20 09/12/20 18:36 16:40 POC Glucose 265 H 251 H Hospitalist ROS - Review of Systems Other: pt intubated - Medication Medications: Active Medications Generic Name Dose Route Start Last Admin Trade Name Freq PRN Reason Stop Dose Admin Acetaminophen 650 mg 09/09/20 21:00 09/09/20 21:05 Acetaminophen 650 Mg/20.3 Ml Udcup PO 650 mg Q4H PRN Administration Headache/Fever/Mild Pain (1-3) Albuterol Sulfate 2 puff 09/11/20 19:00 09/14/20 13:19 Albuterol 200 Puff (6.7gm Inhaler) INH 2 puff [id number] MEREDITH Administration Amlodipine Besylate 5 mg 08/31/20 09:00 09/14/20 09:10 Amlodipine 5 Mg Tab PO 5 mg DAILY MEREDITH Administration Ascorbic Acid 1,000 mg 09/03/20 09:00 09/14/20 09:10 Ascorbic Acid 500 Mg Chewable Tablet PO 1,000 mg DAILY MEREDITH Administration Aspirin 81 mg 08/30/20 09:00 09/14/20 09:10 Aspirin 81 Mg Enteric Coated Tablet PO 81 mg DAILY MEREDITH Administration Cholecalciferol 400 units 09/03/20 09:00 09/14/20 09:11 Cholecalciferol (Vitamin D3) 400 Units Tab PO 400 units DAILY MEREDITH Administration Clopidogrel Bisulfate 75 mg 08/30/20 09:00 09/14/20 09:10 Clopidogrel Bisulfate 75 Mg Tab PO 75 mg DAILY MEREDITH Administration Dextrose/Water 25 gm 08/29/20 16:11 09/07/20 23:07 Dextrose 50% Abboject 50 Ml Syringe SLOW IVP 25 gm PRN PRN Administration Hypoglycemia Famotidine 20 mg 09/12/20 09:00 09/14/20 09:09 Famotidine 20 Mg Tab PO 20 mg 0900 MEREDITH Administration Hydrocortisone Sodium Succinate 50 mg 09/06/20 10:45 09/14/20 12:59 Hydrocortisone Sod Succ/Pf 100 Mg/2 Ml Vial IVP 50 mg Q6HR MEREDITH Administration Nicardipine HCl 50 mg/ Sodium 250 mls @ 0 mls/hr 09/03/20 09:15 09/04/20 03:1 7 Chloride IV 250 mls INF MEREDITH Administration Protocol As Directed Fentanyl Citrate 2,000 mcg/ 100 mls @ 0 mls/hr 09/14/20 12:45 09/14/20 12:55 Sodium Chloride IV 100 mls INF MEREDITH Administration Protocol Per Protocol Insulin Human Lispro 0 units 08/29/20 16:11 09/14/20 05:17 Humalog 300 Units/3 Ml Vial SC 4 unit .MODERATE SLIDING SC PRN Administration Moderate Correctional Scale Insulin Human Lispro 0 units 08/29/20 16:11 09/05/20 22:55 Humalog 300 Units/3 Ml Vial SC 3 unit .BEDTIME SLIDING SC PRN Administration Bedtime Correctional Scale Insulin Human NPH 60 unit 09/06/20 10:45 09/14/20 09:12 Nph, Human Insulin Isophane 300 Unit/3 Ml Vial SC 60 unit BID MEREDITH Administration Isosorbide Mononitrate 30 mg 08/30/20 09:00 09/14/20 09:10 Isosorbide Mononitrate Er 30 Mg Tab PO 30 mg DAILY MEREDITH Administration Labetalol HCl 20 mg 08/31/20 19:08 09/12/20 15:12 Labetalol Hcl 100 Mg/20 Ml Vial SLOW IVP 20 mg Q4H PRN Administration SBP Greater Than 180 Metoprolol Tartrate 50 mg 08/30/20 09:00 09/14/20 09:10 Metoprolol Tartrate 50 Mg Tab PO 50 mg BID MEREDITH Administration Montelukast Sodium 10 mg 08/30/20 09:00 09/14/20 09:10 Montelukast Sodium 10 Mg Tablet PO 10 mg DAILY MEREDITH Administration Propofol 1,000 mg 09/04/20 10:30 09/14/20 12:59 Propofol 1,000 Mg/100 Ml Vial IV 10/04/20 10:30 1,000 mg INF PRN Administration TO ACHIEVE GOAL RASS Protocol Sodium Chloride 10 ml 09/02/20 21:00 09/14/20 09:18 Flush - Normal Saline 10 Ml Syringe IVF 10 ml Q12HR MEREDITH Administration Tamsulosin HCl 0.4 mg 08/30/20 09:00 09/14/20 09:10 Tamsulosin Hcl 0.4 Mg Cap PO 0.4 mg DAILY MEREDITH Administration Vecuronium [place] 10 mg 09/04/20 10:01 09/14/20 07:47 Vecuronium 10 Mg Vial IVP 10 mg Q30MIN PRN Administration Agitation Zinc Sulfate 220 mg 09/03/20 09:00 09/14/20 09:11 Zinc Sulfate 220 Mg Cap PO 220 mg DAILY MEREDITH Administration - Exam Neck: negative: supple, symmetric, no JVD, no thyromegaly, no lymphadenopathy, no carotid bruit, JVD Heart: negative: RRR, no murmur, no gallops, no rubs, normal peripheral pulses, irregular, diminshed peripheral pulses, murmur present, II/IV, III/IV Respiratory: negative: CTAB, no wheezes, no rales, no ronchi, normal chest expansion, no tachypnea, normal percussion, rales, rhonchi, tachypneic, wheezes Gastrointestinal: negative: soft, non-tender, non-distended, normal bowel sounds, no palpable masses, no hepatomegaly, no splenomegaly, no bruit, no guarding, no rigidity, tender to palpation, distended, diminished bowl sounds, voluntary guarding Hosp A/P (1) Acute hypoxemic respiratory failure due to COVID-19 Code(s): U07.1 - COVID-19; J96.01 - ACUTE RESPIRATORY FAILURE WITH HYPOXIA Status: Acute (2) Obesity (BMI 30-39.9) Code(s): E66.9 - OBESITY, UNSPECIFIED Status: Chronic (3) Diabetes mellitus Code(s): E11.9 - TYPE 2 DIABETES MELLITUS WITHOUT COMPLICATIONS Status: Chronic Qualifiers: Diabetes mellitus type: type 2 (4) Hypertension Code(s): I10 - ESSENTIAL (PRIMARY) HYPERTENSION Status: Chronic Qualifiers: Hypertension type: essential hypertension Qualified Code(s): I10 - Essential (primary) hypertension (5) JANE (acute kidney injury) Code(s): N17.9 - ACUTE KIDNEY FAILURE, UNSPECIFIED Status: Acute (6) Syncope and collapse Code(s): R55 - SYNCOPE AND COLLAPSE Status: Acute - Plan Patient is a 74-year-old male with history of diabetes, CAD, hypertension who was at his pain doctor for scheduled appointment and became unresponsive. EMS was called there is a possible concern for seizures at this time glucose was checked which was 53. After appropriate resuscitation with glucose patient was able to communicate. Patient spiked a fever on August 30. Covid was checked which was positive.. Patient underwent EEG which was negative. His unresponsiveness was noted to be most likely secondary to hypoglycemia. Patient was initially put on high flow and then was subsequently intubated. He was intubated on September 04. 09/13 patient continues to be intubated him started on IV diuretics. Patient has been made a DNR. 09/14 will get nephrology to come see pt for possible dialysis. Pulmonary discussed dialysis with pt's son. His overall prognosis is guarded.
--- NOTE | 2020-09-14 16:20 | PRG ---
DATE OF SERVICE: 09/14/2020 SUBJECTIVE: Harsha Rey remains mechanically ventilated. He is tolerating decrease in ventilatory support. OBJECTIVE: LUNGS: Clear. HEART: Regular rhythm. ABDOMEN: Soft. LABORATORY DATA: White count 18.9, hemoglobin 9.1, platelets 237. Sodium 152, potassium 3.5, chloride 107, bicarb 29, BUN 120, creatinine 2.98. IMPRESSION: COVID pneumonia with renal insufficiency. No indication for dialysis at this time. Job ID: [id number]
--- NOTE | 2020-09-14 17:40 | PDOC.HOSPP ---
- Subjective Encounter Date: 09/14/20 Encounter Time: 11:30 Subjective: pt intubated - Objective Vital Signs & Weight: Vital Signs (12 hours) Temp Pulse Resp Pulse Ox 09/14/20 16:00 98.3 F 30 H 09/14/20 14:00 30 H 09/14/20 12:00 98.1 F 30 H 09/14/20 10:08 100 09/14/20 10:00 30 H 09/14/20 09:10 96 09/14/20 08:00 98.2 F 30 H 93 L 09/14/20 07:32 96 09/14/20 06:00 30 H Weight Admit Weight 234 lb 8 oz Weight 225 lb 4.999 oz Most Recent Monitor Data Heart Rate from ECG 102 NIBP 125/68 NIBP BP-Mean 87 Respiration from ECG 30 SpO2 89 I&O: 09/13/20 09/14/20 09/15/20 06:59 06:59 06:59 Intake Total 1634 1135.1 Output Total 2876 2965 1130 [facility]1242 -1829.9 -1130 Result Diagrams: 09/14/20 04:00 09/14/20 04:00 Additional Labs: Accuchecks 09/14/20 09/14/20 09/13/20 15:20 09:43 21:39 POC Glucose 109 H 134 H 226 H 09/13/20 09/12/20 18:36 16:40 POC Glucose 265 H 251 H Hospitalist ROS - Review of Systems Other: intubated - Medication Medications: Active Medications Generic Name Dose Route Start Last Admin Trade Name Freq PRN Reason Stop Dose Admin Acetaminophen 650 mg 09/09/20 21:00 09/09/20 21:05 Acetaminophen 650 Mg/20.3 Ml Udcup PO 650 mg Q4H PRN Administration Headache/Fever/Mild Pain (1-3) Albuterol Sulfate 2 puff 09/11/20 19:00 09/14/20 13:19 Albuterol 200 Puff (6.7gm Inhaler) INH 2 puff [id number] MEREDITH Administration Amlodipine Besylate 5 mg 08/31/20 09:00 09/14/20 09:10 Amlodipine 5 Mg Tab PO 5 mg DAILY MEREDITH Administration Ascorbic Acid 1,000 mg 09/03/20 09:00 09/14/20 09:10 Ascorbic Acid 500 Mg Chewable Tablet PO 1,000 mg DAILY MEREDITH Administration Aspirin 81 mg 08/30/20 09:00 09/14/20 09:10 Aspirin 81 Mg Enteric Coated Tablet PO 81 mg DAILY MEREDITH Administration Cholecalciferol 400 units 09/03/20 09:00 09/14/20 09:11 Cholecalciferol (Vitamin D3) 400 Units Tab PO 400 units DAILY MEREDITH Administration Clopidogrel Bisulfate 75 mg 08/30/20 09:00 09/14/20 09:10 Clopidogrel Bisulfate 75 Mg Tab PO 75 mg DAILY MEREDITH Administration Dextrose/Water 25 gm 08/29/20 16:11 09/07/20 23:07 Dextrose 50% Abboject 50 Ml Syringe SLOW IVP 25 gm PRN PRN Administration Hypoglycemia Famotidine 20 mg 09/12/20 09:00 09/14/20 09:09 Famotidine 20 Mg Tab PO 20 mg 0900 MEREDITH Administration Hydrocortisone Sodium Succinate 50 mg 09/06/20 10:45 09/14/20 17:19 Hydrocortisone Sod Succ/Pf 100 Mg/2 Ml Vial IVP 50 mg Q6HR MEREDITH Administration Nicardipine HCl 50 mg/ Sodium 250 mls @ 0 mls/hr 09/03/20 09:15 09/04/20 03:17 Chloride IV 250 mls INF MEREDITH Administration Protocol As Directed Fentanyl Citrate 2,000 mcg/ 100 mls @ 0 mls/hr 09/14/20 12:45 09/14/20 12:55 Sodium Chloride IV 100 mls INF MEREDITH Administration Protocol Per Protocol Insulin Human Lispro 0 units 08/29/20 16:11 09/14/20 05:17 Humalog 300 Units/3 Ml Vial SC 4 unit .MODERATE SLIDING SC PRN Administration Moderate Correctional Scale Insulin Human Lispro 0 units 08/29/20 16:11 09/05/20 22:55 Humalog 300 Units/3 Ml Vial SC 3 unit .BEDTIME SLIDING SC PRN Administration Bedtime Correctional Scale Insulin Human NPH 60 unit 09/06/20 10:45 09/14/20 09:12 Nph, Human Insulin Isophane 300 Unit/3 Ml Vial SC 60 unit BID MEREDITH Administration Isosorbide Mononitrate 30 mg 08/30/20 09:00 09/14/20 09:10 Isosorbide Mononitrate Er 30 Mg Tab PO 30 mg DAILY MEREDITH Administration Labetalol HCl 20 mg 08/31/20 19:08 09/12/20 15:12 Labetalol Hcl 100 Mg/20 Ml Vial SLOW IVP 20 mg Q4H PRN Administration SBP Greater Than 180 Metoprolol Tartrate 50 mg 08/30/20 09:00 09/14/20 09:10 Metoprolol Tartrate 50 Mg Tab PO 50 mg BID MEREDITH Administration Montelukast Sodium 10 mg 08/30/20 09:00 09/14/20 09:10 Montelukast Sodium 10 Mg Tablet PO 10 mg DAILY MEREDITH Administration Propofol 1,000 mg 09/04/20 10:30 09/14/20 16:12 Propofol 1,000 Mg/100 Ml Vial IV 10/04/20 10:30 1,000 mg INF PRN Administration TO ACHIEVE GOAL RASS Protocol Sodium Chloride 10 ml 09/02/20 21:00 09/14/20 09:18 Flush - Normal Saline 10 Ml Syringe IVF 10 ml Q12HR MEREDITH Administration Tamsulosin HCl 0.4 mg 08/30/20 09:00 09/14/20 09:10 Tamsulosin Hcl 0.4 Mg Cap PO 0.4 mg DAILY MEREDITH Administration Vecuronium [place] 10 mg 09/04/20 10:01 09/14/20 07:47 Vecuronium 10 Mg Vial IVP 10 mg Q30MIN PRN Administration Agitation Zinc Sulfate 220 mg 09/03/20 09:00 09/14/20 09:11 Zinc Sulfate 220 Mg Cap PO 220 mg DAILY MEREDITH Administration - Exam Neck: negative: supple, symmetric, no JVD, no thyromegaly, no lymphadenopathy, no carotid bruit, JVD Heart: negative: RRR, no murmur, no gallops, no rubs, normal peripheral pulses, irregular, diminshed peripheral pulses, murmur present, II/IV, III/IV Respiratory: negative: CTAB, no wheezes, no rales, no ronchi, normal chest expansion, no tachypnea, normal percussion, rales, rhonchi, tachypneic, wheezes Gastrointestinal: negative: soft, non-tender, non-distended, normal bowel sounds, no palpable masses, no hepatomegaly, no splenomegaly, no bruit, no guar ding, no rigidity, tender to palpation, distended, diminished bowl sounds, voluntary guarding Extremities: 2+ LE edema Hosp A/P (1) Acute hypoxemic respiratory failure due to COVID-19 Code(s): U07.1 - COVID-19; J96.01 - ACUTE RESPIRATORY FAILURE WITH HYPOXIA Status: Acute (2) Obesity (BMI 30-39.9) Code(s): E66.9 - OBESITY, UNSPECIFIED Status: Chronic (3) Diabetes mellitus Code(s): E11.9 - TYPE 2 DIABETES MELLITUS WITHOUT COMPLICATIONS Status: Chronic (4) Hypertension Code(s): I10 - ESSENTIAL (PRIMARY) HYPERTENSION Status: Chronic Qualifiers: Qualified Code(s): I10 - Essential (primary) hypertension (5) JANE (acute kidney injury) Code(s): N17.9 - ACUTE KIDNEY FAILURE, UNSPECIFIED Status: Acute (6) Syncope and collapse Code(s): R55 - SYNCOPE AND COLLAPSE Status: Acute - Plan Patient is a 74-year-old male with history of diabetes, CAD, hypertension who was at his pain doctor for scheduled appointment and became unresponsive. EMS was called there is a possible concern for seizures at this time glucose was checked which was 53. After appropriate resuscitation with glucose patient was able to communicate. Patient spiked a fever on August 30. Covid was checked which was positive.. Patient underwent EEG which was negative. His unresponsiveness was noted to be most likely secondary to hypoglycemia. Patient was initially put on high flow and then was subsequently intubated. He was intubated on September 04. 09/13 patient continues to be intubated him started on IV diuretics. Patient has been made a DNR. 09/14 pt to start dialysis today. will stop lasix for now. He has significant elevated wbc with bandemia but no fever. He is on steroids but has been on them since 09/06 will get abd xray.
--- NOTE | 2020-09-14 17:40 | PDOC.NEPPN ---
- Subjective Encounter Date: 09/14/20 Encounter Time: 08:45 Subjective: Seen in follow up for JANE associated with anasarca in the context of acute respiratory failure with hypoxia due to covid pneumonia requiring intubation. Still making urine. Intubated and sedated still. - Objective Vital Signs & Weight: Vital Signs (12 hours) Temp Pulse Resp Pulse Ox 09/14/20 16:00 98.3 F 30 H 09/14/20 14:00 30 H 09/14/20 12:00 98.1 F 30 H 09/14/20 10:08 100 09/14/20 10:00 30 H 09/14/20 09:10 96 09/14/20 08:00 98.2 F 30 H 93 L 09/14/20 07:32 96 09/14/20 06:00 30 H Weight Admit Weight 234 lb 8 oz Weight 225 lb 4.999 oz Most Recent Monitor Data Heart Rate from ECG 102 NIBP 125/68 NIBP BP-Mean 87 Respiration from ECG 30 SpO2 89 I&O: 09/13/20 09/14/20 09/15/20 06:59 06:59 06:59 Intake Total 1634 1135.1 Output Total 2876 2965 1130 [facility] -1242 -1829.9 -1130 Result Diagrams: 09/14/20 04:00 09/14/20 04:00 Additional Labs: Accuchecks 09/14/20 09/14/20 09/13/20 15:20 09:43 21:39 POC Glucose 109 H 134 H 226 H 09/13/20 09/12/20 18:36 16:40 POC Glucose 265 H 251 H Nephrology ROS - Medication Medications: Active Medications Generic Name Dose Route Start Last Admin Trade Name Freq PRN Reason Stop Dose Admin Acetaminophen 650 mg 09/09/20 21:00 09/09/20 21:05 Acetaminophen 650 Mg/20.3 Ml Udcup PO 650 mg Q4H PRN Administration Headache/Fever/Mild Pain (1-3) Albuterol Sulfate 2 puff 09/11/20 19:00 09/14/20 13:19 Albuterol 200 Puff (6.7gm Inhaler) INH 2 puff [id number] MEREDITH Administration Amlodipine Besylate 5 mg 08/31/20 09:00 09/14/20 09:10 Amlodipine 5 Mg Tab PO 5 mg DAILY MEREDITH Administration Ascorbic Acid 1,000 mg 09/03/20 09:00 09/14/20 09:10 Ascorbic Acid 500 Mg Chewable Tablet PO 1,000 mg DAILY MEREDITH Administration Aspirin 81 mg 08/30/20 09:00 09/14/20 09:10 Aspirin 81 Mg Enteric Coated Tablet PO 81 mg DAILY MEREDITH Administration Cholecalciferol 400 units 09/03/20 09:00 09/14/20 09:11 Cholecalciferol (Vitamin D3) 400 Units Tab PO 400 units DAILY MEREDITH Administration Clopidogrel Bisulfate 75 mg 08/30/20 09:00 09/14/20 09:10 Clopidogrel Bisulfate 75 Mg Tab PO 75 mg DAILY MEREDITH Administration Dextrose/Water 25 gm 08/29/20 16:11 09/07/20 23:07 Dextrose 50% Abboject 50 Ml Syringe SLOW IVP 25 gm PRN PRN Administration Hypoglycemia Famotidine 20 mg 09/12/20 09:00 09/14/20 09:09 Famotidine 20 Mg Tab PO 20 mg 0900 MEREDITH Administration Hydrocortisone Sodium Succinate 50 mg 09/06/20 10:45 09/14/20 17:19 Hydrocortisone Sod Succ/Pf 100 Mg/2 Ml Vial IVP 50 mg Q6HR MEREDITH Administration Nicardipine HCl 50 mg/ Sodium 250 mls @ 0 mls/hr 09/03/20 09:15 09/04/20 03:17 Chloride IV 250 mls INF MEREDITH Administration Protocol As Directed Fentanyl Citrate 2,000 mcg/ 100 mls @ 0 mls/hr 09/14/20 12:45 09/14/20 12:55 Sodium Chloride IV 100 mls INF MEREDITH Administration Protocol Per Protocol Insulin Human Lispro 0 units 08/29/20 16:11 09/14/20 05:17 Humalog 300 Units/3 Ml Vial SC 4 unit .MODERATE SLIDING SC PRN Administration Moderate Correctional Scale Insulin Human Lispro 0 units 08/29/20 16:11 09/05/20 22:55 Humalog 300 Units/3 Ml Vial SC 3 unit .BEDTIME SLIDING SC PRN Administration Bedtime Correctional Scale Insulin Human NPH 60 unit 09/06/20 10:45 09/14/20 09:12 Nph, Human Insulin Isophane 300 Unit/3 Ml Vial SC 60 unit BID MEREDITH Administration Isosorbide Mononitrate 30 mg 08/30/20 09:00 09/14/20 09:10 Isosorbide Mononitrate Er 30 Mg Tab PO 30 mg DAILY MEREDITH Administration Labetalol HCl 20 mg 08/31/20 19:08 09/12/20 15:12 Labetalol Hcl 100 Mg/20 Ml Vial SLOW IVP 20 mg Q4H PRN Administration SBP Greater Than 180 Metoprolol Tartrate 50 mg 08/30/20 09:00 09/14/20 09:10 Metoprolol Tartrate 50 Mg Tab PO 50 mg BID MEREDITH Administration Montelukast Sodium 10 mg 08/30/20 09:00 09/14/20 09:10 Montelukast Sodium 10 Mg Tablet PO 10 mg DAILY MEREDITH Administration Propofol 1,000 mg 09/04/20 10:30 09/14/20 16:12 Propofol 1,000 Mg/100 Ml Vial IV 10/04/20 10:30 1,000 mg INF PRN Administration TO ACHIEVE GOAL RASS Protocol Sodium Chloride 10 ml 09/02/20 21:00 09/14/20 09:18 Flush - Normal Saline 10 Ml Syringe IVF 10 ml Q12HR MEREDITH Administration Tamsulosin HCl 0.4 mg 08/30/20 09:00 09/14/20 09:10 Tamsulosin Hcl 0.4 Mg Cap PO 0.4 mg DAILY MEREDITH Administration Vecuronium [place] 10 mg 09/04/20 10:01 09/14/20 07:47 Vecuronium 10 Mg Vial IVP 10 mg Q30MIN PRN Administration Agitation Zinc Sulfate 220 mg 09/03/20 09:00 09/14/20 09:11 Zinc Sulfate 220 Mg Cap PO 220 mg DAILY MEREDITH Administration - Exam General - other findings: sedated. Obese ENT: normocephalic atraumatic ENT - other findings: Et tube in place Respiratory - other findings: Coarse ventilator transmitted breat sound Cardiovascular: RRR Gastrointestinal - other findings: Obese and soft. Bowel sound is diminished Extremities - other findings: Edema of the extremities noted Neurological - other findings: Sedated Nephrology Results - Labs Result Diagrams: 09/14/20 04:00 09/14/20 04:00 Lab results: WBC 18.9 thou/uL (4.8-10.8) H 09/14/20 04:00 Hgb 9.1 g/dL (14.0-18.0) L 09/14/20 04:00 Hct 28.0 % (42.0-52.0) L 09/14/20 04:00 MCV 86.9 fL (78.0-98.0) 09/14/20 04:00 Plt Count 237 thou/uL (130-400) 09/14/20 04:00 Neutrophils % 92.0 % (42.0-75.0) H 09/12/20 03:55 Band Neuts % (Manual) 21 % (5-11) H 09/14/20 04:00 ABG pH 7.32 (7.35-7.45) L 09/14/20 06:53 ABG pCO2 56.1 mmHg (35.0-45.0) H 09/14/20 06:53 ABG pO2 48.6 mmHg (> 70.0) L* 09/14/20 06:53 Sodium 152 mmol/L (136-145) H 09/14/20 04:00 Potassium 3.5 mmol/L (3.5-5.1) 09/14/20 04:00 Chloride 107 mmol/L (98-107) 09/14/20 04:00 Carbon Dioxide 29 mmol/L (23-31) 09/14/20 04:00 BUN 120 mg/dL (8.4-25.7) H 09/14/20 04:00 Creatinine 2.98 mg/dL (0.7-1.3) H 09/14/20 04:00 Glucose 204 mg/dL (83-110) H 09/14/20 04:00 Lactic Acid 2.0 mmol/L (0.5-2.2) 09/10/20 03:17 Calcium 8.0 mg/dL (7.8-10.44) 09/14/20 04:00 Total Bilirubin 0.8 mg/dL (0.2-1.2) 08/30/20 04:55 AST 54 U/L (5-34) H 08/30/20 04:55 ALT 22 U/L (8-55) 08/30/20 04:55 Alkaline Phosphatase 95 U/L (40-110) 08/30/20 04:55 CK-MB (CK-2) 3.5 ng/mL (0-6.6) 08/29/20 12:53 Troponin I 0.049 ng/mL (< 0.028) H 08/29/20 19:45 C-Reactive Protein 4.59 mg/dL (= or < 0.5) H 09/06/20 03:02 Serum Total Protein 7.8 g/dL (5.8-8.1) 08/30/20 04:55 Albumin 3.1 g/dL (3.4-4.8) L 09/14/20 04:00 Urine Ketones Negative mg/dL (Negative) 09/13/20 15:45 Urine Blood Large (Negative) A 09/13/20 15:45 Urine Nitrite Negative (Negative) 09/13/20 15:45 Ur Leukocyte Esterase Trace (Negative) H 09/13/20 15:45 Urine RBC 7-10 HPF (0-3) A 09/13/20 15:45 Urine WBC 4-6 HPF (0-3) A 09/13/20 15:45 Ur Squamous Epith Cells 0-3 HPF (0-3) 09/13/20 15:45 Urine Bacteria Rare-Few HPF (None Seen) 09/13/20 15:45 Sodium 152 mmol/L (136-145) H 09/14/20 04:00 Potassium 3.5 mmol/L (3.5-5.1) 09/14/20 04:00 Chloride 107 mmol/L (98-107) 09/14/20 04:00 Carbon Dioxide 29 mmol/L (23-31) 09/14/20 04:00 Anion Gap 20 mmol/L (10-20) 09/14/20 04:00 BUN 120 mg/dL (8.4-25.7) H 09/14/20 04:00 Creatinine 2.98 mg/dL (0.7-1.3) H 09/14/20 04:00 Glucose 204 mg/dL (83-110) H 09/14/20 04:00 Calcium 8.0 mg/dL (7.8-10.44) 09/14/20 04:00 Phosphorus 7.3 mg/dL (2.3-4.7) H 09/13/20 16:56 Albumin 3.1 g/dL (3.4-4.8) L 09/14/20 04:00 Nephrology AP PN - Plan ASSESSMENT: Acute on chronic renal failure: Due to hemodynamic factors related to intravascular contraction and sepsis. Marked azotemia: Seems to be multifactorial from renal insufficiency, intravascular contraction, diuretic therapy and steroids. 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 Volume overload. Acute respiratory failure requiring intubation due to COVID pneumonia. Diabetes mellitus with hyperglycemia. Hypertensive urgency. Improved with Cardene. Currently on oral antihypertensives. Hypoalbuminemia.Improved with albumin infusion. Pulmonary congestion/infiltrate: Due to fluid overload, congestion as well as COVID pneumonia. PLAN: Due to marked//worsening azotemia and persistent generalized edema despite diuretic and albumin, we will initiate hemodialys to help with metabolic and volume management. See EMR for order. Hd today for 2 hours with UF as tolerated. Monitor electrolyte and I/O. Other treatments to continue.
--- NOTE | 2020-09-14 18:27 | RAD ---
SUPINE ABDOMEN: 09/14/20 HISTORY: Elevated white count. The bowel gas pattern is unremarkable. There are scattered stool and gas seen in the colon. Small bow el gas pattern is unremarkable. Tip of NG tube overlies the upper right abdomen. Bilateral femoral li parish are noted. IMPRESSION: Unremarkable bowel gas pattern. POS: AGW
[2020-09-15] MEDS: Hydrocortisone Sod Succ/PF 100 mg/2 ml Vial IVP SCH ×2 (00:03→05:04)
[2020-09-15] MEDS: Albuterol 200 PUFF (6.7GM INHALER) INH SCH ×2 (00:10→07:08)
[2020-09-15] MEDS: Propofol 1,000 MG/100 ML VIAL IV PRN ×2 (02:00→06:50)
[2020-09-15] MEDS: Vecuronium 10 MG VIAL IVP PRN (03:42)
[2020-09-15 05:20] LABS: Anion Gap 20 mmol/L (10-20); BUN (Urea Nitrogen) 99 mg/dL (8.4-25.7); Calc. Creatinine Clearance 37 mL/min (70-130); Calcium 7.9 mg/dL (7.8-10.44); Carbon Dioxide 28 mmol/L (23-31); Chloride 104 mmol/L (98-107); Estimated GFR-MDRD 31; Glucose 222 mg/dL (83-110); Potassium 4.2 mmol/L (3.5-5.1); Sodium 148 mmol/L (136-145)
[2020-09-15] MEDS: HumaLOG 300 UNITS/3 ML VIAL SC PRN ×2 (05:21→09:58)
[2020-09-15 05:39] LABS: Band 6 % (5-11); Hemoglobin 9.4 g/dL (14.0-18.0); Hypochromia MODERATE=16-30 cells (100X) (0-5/hpf); Lymphocytes 4 % (21-51); MDiff Complete? YES; Mean Corpuscular HGB CONC 30.6 g/dL (32.0-36.0); Mean Corpuscular Hemoglobin 26.9 pg (27.0-31.0); Mean Corpuscular Volume 87.9 fL (78.0-98.0); Mean Platelet Volume 10.1 fL (7.4-10.4); Metamyelocyte 1 % (0-0); Monocytes 6 % (0-10); Neutrophil 83 % (42-75); Nucleated RBC 1 % (0); Platelet Count 218 thou/uL (130-400); Platelet Morphology Comment Appears Adequate; RBC Distribution Width 14.9 % (11.5-14.5); Red Blood Cell (RBC) Count 3.49 mill/uL (4.70-6.10); White Blood Cell (WBC) Count 22.4 thou/uL (4.8-10.8)
[2020-09-15] MEDS: fentaNYL Citrate/PF 2,000 MCG in Sodium Chloride 0.9% 60 ML IV SCH (06:22)
[2020-09-15 07:19] LABS: Actual Bicarbonate (HCO3a) 27.7 mEq/L (22-28); Base Excess (BEa) -0.2 mEq/L (-2.0 to +3.0); Calcium, Ionized (arterial) 1.07 mmol/L (1.12-1.30); Carboxyhemoglobin (COHb) 0.8 gm% (0.0-3.0); Hemoglobin (Hb) 11.7 g/dL (14.0-18.0); Potassium - ABG Lab 4.08 mmol/L (3.70-5.30); pH, Arterial 7.27 (7.35-7.45)
[2020-09-15 07:34] LABS: CO2 Tension 61.8 mmHg (35.0-45.0)
[2020-09-15 07:35] LABS: Puncture Site RRAD
[2020-09-15 08:14] VITALS: TEMP 98.4
[2020-09-15] MEDS ORDERED: Bisacodyl 10 MG SUPP PR SCH (08:15)
--- NOTE | 2020-09-15 08:33 | RAD ---
PORTABLE CHEST: HISTORY: Pneumonia followup. COMPARISON: 09/14/2020. FINDINGS: ET tube and NG tube remain in place. Diffuse bilateral infiltrates are again noted slightly more pronounced on the left. These show no si gnificant change from yesterday. IMPRESSION: No significant interval change. POS: AGW
[2020-09-15] MEDS: Cholecalciferol (Vitamin D3) 400 UNITS TAB PO SCH (08:49)
[2020-09-15] MEDS: Amlodipine 5 MG TAB PO SCH (08:50)
[2020-09-15] MEDS: Aspirin 81 mg Enteric Coated Tablet PO SCH (08:50)
[2020-09-15] MEDS: Famotidine 20 MG TAB PO SCH (08:50)
[2020-09-15] MEDS: Zinc Sulfate 220 MG CAP PO SCH (08:50)
[2020-09-15 08:51] VITALS: BP 142/76
[2020-09-15] MEDS: Montelukast Sodium 10 mg Tablet PO SCH (08:51)
[2020-09-15] MEDS: Clopidogrel Bisulfate 75 MG TAB PO SCH (08:51)
[2020-09-15] MEDS: Metoprolol Tartrate 50 MG TAB PO SCH (08:51)
[2020-09-15] MEDS: Ascorbic Acid 500 mg Chewable Tablet PO SCH (08:51)
[2020-09-15] MEDS: Tamsulosin HCl 0.4 MG CAP PO SCH (08:51)
[2020-09-15] MEDS: NPH, Human Insulin Isophane 300 UNIT/3 ML VIAL SC SCH (08:53)
[2020-09-15] MEDS ORDERED: Polyethylene Glycol 3350 17 GM Packet PO SCH (09:00)
[2020-09-15] MEDS ORDERED: Docusate 100 MG CAP PO SCH (09:00)
--- NOTE | 2020-09-15 20:07 | DIS ---
DATE OF ADMISSION: 08/31/2020 DATE OF DISCHARGE: 09/15/2020 SUMMARY: DATE OF : 09/15/2020. DISCHARGE DIAGNOSES: As of the following; 1. Acute hypoxic respiratory failure secondary to COVID. 2. COVID pneumonia. 3. Obesity. 4. Diabetes. 5. Hypertension. 6. Acute kidney injury requiring dialysis. 7. Syncope. HOSPITAL COURSE: The patient is a 74-year-old male with history of diabetes, CAD, and hypertension, who initially was at his pain doctor's office for scheduled appointment, became unresponsive. At this time, EMS was called. There was a concern for possible seizure. However, his blood sugars were 53. He was appropriately resuscitated and admitted to the hospital for observation. However, on August 30, he spiked a fever. At this time, COVID was checked, the patient was positive. The patient also had an EEG, which was negative for seizure. Throughout the hospital stay, the patient continued to deteriorate respiratory joel. There was a rapid response that was called on 09/02. At this time, patient was taken to the IMCU, was initially put on BiPAP and then, high-flow and then subsequently underwent intubation. He was intubated actually on September 04. The patient was made DNAR by the patient's son. The patient continued to worsen, becoming very agitated when trying to wean off the vent. The patient was on steroids and on DVT prophylaxis. The patient underwent dialysis x1. I was notified by the nurse that the patient blood pressure trended downward and he . The patient's family was notified. Job ID: [id number]
--- NOTE | 2020-09-15 20:36 | PRG ---
DATE OF SERVICE: 09/15/2020 Harsha Rey did not do well today. Required continued high-flow oxygen requirements. He dropped his pressure this morning. He was given volume resuscitation. His son was contacted. His son was informed that it is highly likely he will pass away today. Lungs, heart, and abdomen exam are unchanged. There is no new significant lab abnormality. The son arrived and he succumbed of the illness. Unfortunately, he did not survive this. Job ID: [id number]
[2020-09-16 13:37] LABS: Hep C PCR-Quant HCV Not Detected IU/mL (.)
--- NOTE | 2020-09-17 21:36 | PQF ---
CLINICAL DOCUMENTATION CLARIFICATION FORM: Dear : Rosario Irby Date / Time: 09/17/20 1618 Please exercise your independent, professional judgment in responding to the clarification form. Clinical indicators are provided on the bottom of this form for your review Diagnosis: Sepsis Present on Admission (POA): [ x ] Yes [ ] No [ ] Unable to determine Physician Signature: Date/Time: For continuity of documentation, please document condition throughout progress notes and discharge summary. Thank You To be completed by CDI/Coding staff for physician review: Present Clinical Indicators - Signs / Symptoms / Labs Results and Location in Medical Record [X] BP 127/73, pulse 70, Resp 33, Temp 98.3 Vital signs 08/31 [X] Blood culture: No growth in 5 days Microbiology 09/09 [X] WBC 7.4, Neutrophils 78.7, Plt count 160, Band 4, Procalcitonin 0.23 Laboratory 08/31 [X] Acute hypoxic respiratory failure likely from Covid Pneumonia HPN p4 Dr Khalif Martinez 09/01 [X] Fever likely from Covid HPN p5 Dr Khalif Martinez 09/01 [X] Metabolic Encephlaopathy PN p7 Dr Dove 09/14 [X] Acute on Chronic Renal failure due to hemodynamic factors related to intravascular contraction and Sepsis PN p7 Dr Dove 09/14 Present Risk Factors Results and Location in Medical Record [X] 74 year-old Male HPN p1 Dr Khalif Martinez 09/01 [X] HTN HPN p1 Dr Khalif Martinez 09/01 [X] CAD HPN p1 Dr Khalif Martinez 09/01 [X] Obesity HPN p1 Dr Khalif Martinez 09/01 [X] DM HPN p1 Dr Khalif Martinez 09/01 [X] Covid Pneumonia HPN p4 Dr Khalif Martinez 09/01 [X] UTI HPN p4 Dr Khalif Martinez 09/01 Present Treatments Results and Location in Medical Record [X] IVF NS 1L JAN 10 [X] IV Ceftriaxone 1 gm JAN 10 [X] IV Azithromycin 500 mg JAN 10 [X] Azithromycin 500 gm oral FEB 06 [X] Omnicef 300 mg oral JAN 10 [X] BiPAP Respiratory Panel 10/ [X] Mechanical Ventilator Respiratory Panel 10 [X] Blood culture Microbiology 09/09 [X] Convalescent plasma Blood bank 09/01 [X] Isolation Order 08/31 [X] Pulmonary consult Consult Victoriano Knott 09/02 CDS/Water Attendant Signature: Rhina Reynoso Jose Phone #: [phone] Date/Time: 09/17/2020 2621 This is a permanent part of the Medical Record [facility]
== END 2020-09-15 11:15 | disposition expired | DRG 870 ==
LOC: ERS 11:59 → 2SW 14:32 → OBSVTOIN 08-31 11:44 → 2SW 08-31 12:45 → CCU 09-02 04:17
PROVIDERS: ADMIT Internal Medicine; ATTEND Internal Medicine
PROC: XW13325 Transfusion of Convalescent Plasma (Nonautologous) into Peripheral Vein, Percutaneous Approach, New Technology Group 5 (ICD-10-PCS; principal; 2020-08-31)
PROC: 8E0ZXY6 Isolation (ICD-10-PCS; 2020-08-31)
PROC: 5A09457 Assistance with Respiratory Ventilation, 24-96 Consecutive Hours, Continuous Positive Airway Pressure (ICD-10-PCS; 2020-09-02)
PROC: 5A1955Z Respiratory Ventilation, Greater than 96 Consecutive Hours (ICD-10-PCS; 2020-09-04)
PROC: 0BH17EZ Insertion of Endotracheal Airway into Trachea, Via Natural or Artificial Opening (ICD-10-PCS; 2020-09-04)
PROC: 06HY33Z Insertion of Infusion Device into Lower Vein, Percutaneous Approach (ICD-10-PCS; 2020-09-06)
PROC: 5A1D70Z Performance of Urinary Filtration, Intermittent, Less than 6 Hours Per Day (ICD-10-PCS; 2020-09-14)
DX: A41.9 Sepsis, unspecified organism (principal); U07.1 COVID-19; J96.01 Acute respiratory failure with hypoxia; Z66 Do not resuscitate; J12.89 Other viral pneumonia; G93.41 Metabolic encephalopathy; N17.9 Acute kidney failure, unspecified; N39.0 Urinary tract infection, site not specified; E87.0 Hyperosmolality and hypernatremia; T82.838A Hemorrhage due to vascular prosthetic devices, implants and grafts, initial encounter; N18.4 Chronic kidney disease, stage 4 (severe); E87.1 Hypo-osmolality and hyponatremia; R65.20 Severe sepsis without septic shock; I12.9 Hypertensive chronic kidney disease with stage 1 through stage 4 chronic kidney disease, or unspecified chronic kidney disease; E66.9 Obesity, unspecified; I25.10 Atherosclerotic heart disease of native coronary artery without angina pectoris; E78.5 Hyperlipidemia, unspecified; G89.29 Other chronic pain; M54.5 Low back pain; N40.0 Benign prostatic hyperplasia without lower urinary tract symptoms; Z96.659 Presence of unspecified artificial knee joint; E11.649 Type 2 diabetes mellitus with hypoglycemia without coma; R79.89 Other specified abnormal findings of blood chemistry; I16.0 Hypertensive urgency; E11.65 Type 2 diabetes mellitus with hyperglycemia; E87.6 Hypokalemia; E87.70 Fluid overload, unspecified; E88.09 Other disorders of plasma-protein metabolism, not elsewhere classified; Y83.8 Other surgical procedures as the cause of abnormal reaction of the patient, or of later complication, without mention of misadventure at the time of the procedure; Z79.82 Long term (current) use of aspirin; Z68.34 Body mass index [BMI] 34.0-34.9, adult; Z95.1 Presence of aortocoronary bypass graft; Z79.899 Other long term (current) drug therapy; Z79.4 Long term (current) use of insulin; Z79.02 Long term (current) use of antithrombotics/antiplatelets; Z78.1 Physical restraint status
CPT/HCPCS: 36415; 36416; 36430; 70450; 71045; 74018; 76536; 80048; 80053; 80076; 81001; 81003; 81015; 82040; 82553; 82570; 82728; 82805; 83036; 83605; 84145; 84146; 84156; 84300; 84443; 84484; 84540; 85025; 85610; 85730; 86140; 86704; 86706; 86803; 86850; 86900; 86901; 87040; 87086; 87340; 87449; 87522; 87635; 90935; 93005; 93970; 94002; 94003; 94660; 95712; 95816; 95819; 96374; 96375; G0257; G0378; J0456; J0696; J1642; J1644; J1650; J1720; J1815; J1940; J2060; J2270; J2704; J2920; J3010; J3480; J3490; J7050; J8540; P9017; P9047; U0003